=== PATIENT | female | born 1970 | race Caucasian/White ===

== ENCOUNTER 2021-02-12 08:47 | Outpatient (REF) | payer MEDICAID, SELFPAY ==
--- NOTE | ~2021-02-12 | MM_ITS ---
EXAMINATION: MM SCREENING DIGITAL BREAST TOMOSYNTHESIS, BILATERAL CLINICAL INFORMATION: Screening. Asymptomatic. Benign left stereotactic biopsy 01/04/2020 (Benign breast tissue with apocrine metaplasia and associated calcium oxalate crystals). The lifetime risk of breast cancer based on the Tyrer-Cuzick Model is 12%. COMPARISON: Mammography: 01/04/2020, 01/02/2020, 01/27/2017 TECHNIQUE: Digital breast tomosynthesis is performed in both the craniocaudal and mediolateral oblique views along with computer-aided detection (CAD). Synthesized 2D images are generated from the tomosynthesis. FINDINGS: There are scattered areas of fibroglandular density (ACR BI-RADS breast composition Category b). There are no significant masses, abnormal calcifications, or other abnormalities. There is biopsy clip marker anterior upper outer left breast. The axilla are unremarkable. No significant changes. MM/MM tomosynthesis screening BI IMPRESSION: No mammographic evidence of malignancy. ASSESSMENT: BI-RADS 2: Benign RECOMMENDATION: Routine annual mammography screening. This patient's information was entered into a reminder system with a target due date for their next mammogram.
== END 2021-02-12 08:48 | disposition home or self-care (01) ==
LOC: HO.MAMMO 08:47
PROVIDERS: PCP Family Medicine; Visit Provider Family Medicine
DX: Z12.31 Encounter for screening mammogram for malignant neoplasm of breast (principal)
CPT/HCPCS: 77063; 77067

== ENCOUNTER 2021-04-04 10:38 | Outpatient (REF) | payer MEDICAID, SELFPAY ==
--- NOTE | ~2021-04-04 | XR_ITS ---
EXAMINATION: XR LUMBOSACRAL SPINE WITH OBLIQUES CLINICAL INFORMATION: Lumbar region radiculopathy. COMPARISON: None TECHNIQUE: AP, both oblique, and lateral views of the lumbar spine. Lateral view of the lumbosacral junction. FINDINGS: Mild lumbar levoscoliosis is seen with apex at L3-4. Mild to moderate multilevel degenerative disc disease is seen from L2-3 to L5-S1, most pronounced at L3-4 with mild grade 1 anterolisthesis. Mild bilateral facet arthropathy seen at L4-5 and L5-S1. There is no acute fracture. Surgical clips overlie the right upper quadrant. The soft tissues are unremarkable. XR/XR lumbar spine 4V min IMPRESSION: 1. Mild lumbar levoscoliosis. 2. Mild to moderate multilevel degenerative changes and detailed above. No acute abnormality.
== END 2021-04-04 10:39 | disposition home or self-care (01) ==
LOC: HO.XRAY 10:38
PROVIDERS: Absent Provider Family Medicine; PCP Family Medicine; Visit Provider Emergency Medicine
DX: M54.16 Radiculopathy, lumbar region (principal)
CPT/HCPCS: 72110

== ENCOUNTER 2021-07-22 09:11 | Outpatient (REF) | payer MEDICAID, SELFPAY ==
[2021-07-25 17:43] LABS: HPV mRNA E6/E7 rflx Not Detected (Not Detected)
== END 2021-07-22 09:12 | disposition home or self-care (01) ==
LOC: HO.LAB 09:11
PROVIDERS: PCP Family Medicine; Visit Provider Advanced Practice Midwife
DX: Z01.419 Encounter for gynecological examination (general) (routine) without abnormal findings (principal); N63.20 Unspecified lump in the left breast, unspecified quadrant; N63.10 Unspecified lump in the right breast, unspecified quadrant; N85.2 Hypertrophy of uterus; Z79.899 Other long term (current) drug therapy
CPT/HCPCS: 87624; 88142

== ENCOUNTER 2021-08-19 09:02 | Outpatient (REF) | payer MEDICAID, SELFPAY ==
--- NOTE | ~2021-08-19 | US_ITS ---
EXAMINATION: MM DIAGNOSTIC DIGITAL BREAST TOMOSYNTHESIS, BILATERAL US DIAGNOSTIC ULTRASOUND BREAST, BILATERAL CLINICAL INFORMATION: Bilateral palpable findings noted at routine clinical exam lower breasts. Patient notes no palpable abnormality. No discharge. Age 51. Benign left stereotactic biopsy 01/04/2020 (Benign breast tissue with apocrine metaplasia and associated calcium oxalate crystals). The lifetime risk of breast cancer based on the Tyrer-Cuzick Model is 15%. COMPARISON: Mammography: 02/12/2021, 01/04/2020, 01/02/2020, 12/28/2019, 01/27/2017 TECHNIQUE: Digital breast tomosynthesis is performed in both the craniocaudal and mediolateral oblique views along with computer-aided detection (CAD). Synthesized 2D images are generated from the tomosynthesis. Additional right MLO view is provided. Ultrasound of each breast is targeted to the areas of clinical concern bilateral 4:00 through 8:00 position. Grayscale imaging and color Doppler are performed without and with harmonics. FINDINGS: There are scattered areas of fibroglandular density (ACR BI-RADS breast composition Category b). There is no developing density or interval mass or architectural abnormality. No skin thickening or coarsening of the Anival's ligaments. No interval abnormal calcifications. Biopsy clip marker present anterior 1:00 left breast. Ultrasound of each breast demonstrates no cystic or solid mass or architectural abnormality. There is no focal duct ectasia. No skin thickening or edema tracking in soft tissue planes. Results are discussed with the patient at time of visit, using an pipe cleaner. US/US breast LT limited IMPRESSION: No mammographic evidence of malignancy. Unremarkable bilateral targeted breast ultrasound. ASSESSMENT: BI-RADS 1: Negative RECOMMENDATION: 1. Patient should be managed based on the clinical impression. If clinically indicated, further evaluation may be considered with surgical consult. Decision to proceed with biopsy should be based on clinical grounds and degree of clinical concern. 2. Otherwise, routine annual screening mammography. This patient's information was entered into a reminder system with a target due date for their next mammogram.
--- NOTE | ~2021-08-19 | US_ITS ---
EXAMINATION: MM DIAGNOSTIC DIGITAL BREAST TOMOSYNTHESIS, BILATERAL US DIAGNOSTIC ULTRASOUND BREAST, BILATERAL CLINICAL INFORMATION: Bilateral palpable findings noted at routine clinical exam lower breasts. Patient notes no palpable abnormality. No discharge. Age 51. Benign left stereotactic biopsy 01/04/2020 (Benign breast tissue with apocrine metaplasia and associated calcium oxalate crystals). The lifetime risk of breast cancer based on the Tyrer-Cuzick Model is 15%. COMPARISON: Mammography: 02/12/2021, 01/04/2020, 01/02/2020, 12/28/2019, 01/27/2017 TECHNIQUE: Digital breast tomosynthesis is performed in both the craniocaudal and mediolateral oblique views along with computer-aided detection (CAD). Synthesized 2D images are generated from the tomosynthesis. Additional right MLO view is provided. Ultrasound of each breast is targeted to the areas of clinical concern bilateral 4:00 through 8:00 position. Grayscale imaging and color Doppler are performed without and with harmonics. FINDINGS: There are scattered areas of fibroglandular density (ACR BI-RADS breast composition Category b). There is no developing density or interval mass or architectural abnormality. No skin thickening or coarsening of the Anival's ligaments. No interval abnormal calcifications. Biopsy clip marker present anterior 1:00 left breast. Ultrasound of each breast demonstrates no cystic or solid mass or architectural abnormality. There is no focal duct ectasia. No skin thickening or edema tracking in soft tissue planes. Results are discussed with the patient at time of visit, using an obstetrics gyn physician. US/US breast RT limited IMPRESSION: No mammographic evidence of malignancy. Unremarkable bilateral targeted breast ultrasound. ASSESSMENT: BI-RADS 1: Negative RECOMMENDATION: 1. Patient should be managed based on the clinical impression. If clinically indicated, further evaluation may be considered with surgical consult. Decision to proceed with biopsy should be based on clinical grounds and degree of clinical concern. 2. Otherwise, routine annual screening mammography. This patient's information was entered into a reminder system with a target due date for their next mammogram.
== END 2021-08-19 09:03 | disposition home or self-care (01) ==
LOC: HO.MAMMO 09:02
PROVIDERS: Visit Provider Advanced Practice Midwife
DX: N63.15 Unspecified lump in the right breast, overlapping quadrants (principal); N63.25 Unspecified lump in the left breast, overlapping quadrants
CPT/HCPCS: 76642; 77062; 77066

== ENCOUNTER 2022-01-07 09:29 | Outpatient (REF) | payer MEDICAID, SELFPAY ==
--- NOTE | ~2022-01-07 | US_ITS ---
EXAMINATION: US PELVIS CLINICAL INFORMATION: This is a 51-year-old female with hypertrophy of the uterus. The patient is postmenopausal. COMPARISON: Comparison is made to a previous study dated 03/11/2012. TECHNIQUE: Ultrasound of the pelvis is performed using both transabdominal and transvaginal transducers along with Doppler. Transvaginal imaging is performed due to inadequate visualization transabdominally. FINDINGS: Uterus: The uterus is anteverted and anteflexed and measures 12.3 x 7.7 x 9.9 cm. The double wall endometrial thickness is is enlarged, inhomogeneous and measures 13 mm. There may be fluid present within the endometrial complex. The uterus is lobulated in contour and has multiple hypoechoic, circumscribed, noncalcified masses likely representing uterine fibroids: 1. There is a 6.7 x 4.8 x 6.7 cm lower right uterine mass which may represent a uterine fibroid. This may have been present previously when it measured 3.0 x 2.3 x 2.6 cm. 2. There is a 2.0 x 1.5 x 1.9 cm uterine mass which may represent a uterine fibroid. This was not apparent previously. 3. There is a 5.1 x 3.9 x 4.5 cm uterine mass which may represent a fibroid. This was not apparent previously. 4. There is a 4.0 x 2.9 x 5.0 cm uterine mass which may represent a uterine fibroid. This was not apparent previously. 5. There is 1.9 x 1.2 x 1.8 cm mass which may represent a uterine fibroid. This previously measured 0.7 x 0.5 x 0.9 cm. Adnexa: Both ovaries are visualized. There is normal color flow to the adnexa. There is no ovarian torsion. There is no pelvic ascites or fluid collection. Right ovary measures 3.9 x 1.9 x 2.6 cm. The volume is 10.1 mL. Previously, the right ovary measured 4.0 x 1.7 x 3.6 cm. Left ovary measures 1 x 2.6 x 3.3 cm. The volume is 17.1 mL. There is a complex 2.0 x 1.6 x 2.8 cm cystic mass. This contains septation and increased echoes. This is not a simple cyst. Previously, the ovary measures 3.5 x 2.8 x 3.1 cm. US/US pelvic and transvaginal IMPRESSION: 1. There are multiple masses within the uterus which may represent uterine fibroids. They have increased in size and number when compared to the previous study dated 03/11/2012. 2. There is a complex 2.8 cm cystic mass in the left ovary which was not apparent previously. A follow-up study to demonstrate resolution in 6 weeks is recommended.
== END 2022-01-07 09:30 | disposition home or self-care (01) ==
LOC: HO.US 09:29
PROVIDERS: PCP Family Medicine; Visit Provider Advanced Practice Midwife
DX: N85.2 Hypertrophy of uterus (principal)
CPT/HCPCS: 76830; 76856

== ENCOUNTER → 2022-01-13 10:55 | Outpatient (BNVA) | payer MEDICAID, SELFPAY | PROVIDERS: Visit Provider Advanced Practice Midwife | DX: Z13.89 Encounter for screening for other disorder (principal) ==

== ENCOUNTER → 2022-02-12 08:46 | Outpatient (BNVA) | payer MEDICAID, SELFPAY | PROVIDERS: PCP Family Medicine; Visit Provider Obstetrics & Gynecology | DX: D21.9 Benign neoplasm of connective and other soft tissue, unspecified (principal); N83.299 Other ovarian cyst, unspecified side; R32 Unspecified urinary incontinence | CPT/HCPCS: 99212 ==

== ENCOUNTER 2022-02-24 10:34 | Outpatient (REF) | payer MEDICAID, SELFPAY ==
--- NOTE | ~2022-02-24 | US_ITS ---
EXAMINATION: US PELVIS CLINICAL INFORMATION: Follow-up left ovarian cyst COMPARISON: Previous pelvic ultrasounds most recent December 2021 TECHNIQUE: Ultrasound of the pelvis is performed using both transabdominal and transvaginal transducers along with Doppler. Transvaginal imaging is performed due to inadequate visualization transabdominally. FINDINGS: The uterus is slightly enlarged and measures 10 x 4.6 x 8 cm in dimension. There are are multiple uterine lesions seen likely representing fibroids. Comparison with previous exam is difficult. There is at least 4 uterine fibroids seen. Largest fibroids measure 3 x 3.2 x 2.6 cm in the posterior lower uterine segment and 4.2 x 3.8 x 5 cm in the posterior fundus. The endometrium is not well visualized due to the fibroids. There are nabothian cysts in the cervix. The ovaries are normal-appearing. The right ovary measures 2.8 x 2.1 x 2.4 cm and the left ovary measures 2.8 x 2.1 x 2.1 cm. The previously identified 2 x 3 cm left ovarian cyst is no longer seen. There is no fluid in the pelvis. US/US pelvic and transvaginal IMPRESSION: Normal-appearing ovaries. Resolved left ovarian cyst from December 2021 exam. Multiple uterine fibroids. Endometrium not well seen.
[2022-02-26 11:06] LABS: CA 125 New Method 4 U/mL (<35); CA-125 5 U/mL (<35)
== END 2022-02-24 10:35 | disposition home or self-care (01) ==
LOC: HO.HMGCX 10:34
PROVIDERS: PCP Family Medicine; Visit Provider Obstetrics & Gynecology
DX: D21.9 Benign neoplasm of connective and other soft tissue, unspecified (principal); N83.299 Other ovarian cyst, unspecified side
CPT/HCPCS: 36415; 76830; 76856; 86304

== ENCOUNTER → 2022-03-24 11:19 | Outpatient (BNVA) | payer MEDICAID, SELFPAY | PROVIDERS: PCP Family Medicine; Visit Provider Obstetrics & Gynecology | DX: N83.299 Other ovarian cyst, unspecified side (principal); D21.9 Benign neoplasm of connective and other soft tissue, unspecified | CPT/HCPCS: 99212 ==

== ENCOUNTER 2022-08-19 09:23 | Emergency (ER) | payer MEDICAID, SELFPAY ==
--- NOTE | ~2022-08-19 | XR_ITS ---
EXAMINATION: XR FEMUR, RIGHT CLINICAL INFORMATION: Fall in the shower. Pain of the femur. COMPARISON: None TECHNIQUE: AP and lateral views of the right femur were obtained. FINDINGS: No fracture or cortical disruption. Appropriate alignment of the hip and knee. The soft tissues appear unremarkable. XR/XR femur RT 2V IMPRESSION: No fracture or malalignment.
--- NOTE | ~2022-08-19 | CT_ITS ---
EXAMINATION: NONCONTRAST HEAD CT NONCONTRAST CERVICAL SPINE CT INDICATION INFORMATION: Fall in the shower. Headache. Neck pain. COMPARISON: Cervical spine radiograph 06/28/2020 . TECHNIQUE: Separate noncontrast CT examinations of the head and cervical spine were performed. Coronal and sagittal images were created for each examination at the technologist workstation. This CT examination was performed using dose optimization techniques as appropriate, variously including the following: *Automated exposure control *Adjustment of mA and/or kV according to patient size (this includes techniques or standardized protocols for targeted exams where dose is matched to indication/reason for exam; i.e. extremities or head) *Use of iterative reconstruction technique DLP: 1121 mGy-cm FINDINGS: Head: There is no evidence of acute intracranial hemorrhage or territorial infarction. No abnormal mass effect or midline shift is seen. Zambrano to white matter differentiation is well preserved. No extra-axial fluid collections are identified. No hydrocephalus. No significant volume loss. There is no abnormal attenuation within the brain parenchyma. No acute osseous or soft tissue abnormality. The mastoid air cells and visualized portions of the paranasal sinuses are well aerated. Cervical spine: Straightening of the normal cervical lordosis. There is otherwise anatomic alignment of the vertebral bodies and posterior elements. The atlantoaxial and atlantooccipital articulations are intact. Vertebral body heights are maintained. There is multilevel intervertebral disc space narrowing with endplate osteophyte formation and facet arthropathy. No evidence of acute fracture. No prevertebral soft tissue swelling. Visualized portions of the lung apices are unremarkable. The thyroid gland is unremarkable. CT/CT cervical spine wo IV con IMPRESSION: 1. No acute intracranial finding. 2. No acute fracture or malalignment of the cervical spine. Mild degenerative changes.
--- NOTE | ~2022-08-19 | XR_ITS ---
EXAMINATION: XR SHOULDER, RIGHT XR ELBOW, RIGHT CLINICAL INFORMATION: Pain status post fall COMPARISON: None TECHNIQUE: 3 views of the right shoulder. 3 views of the right elbow. FINDINGS: Right shoulder: No fracture or dislocation. The glenohumeral joint is well aligned. The acromioclavicular joint is intact. The visualized lung is clear. The visualized ribs are intact. Right elbow: No acute fracture or dislocation. Osteophyte formation noted at the coronoid process. Enthesophyte of the medial humeral epicondyle. No elbow joint effusion. XR/XR shoulder RT min 2V IMPRESSION: No fracture or malalignment involving the right shoulder or elbow.
--- NOTE | ~2022-08-19 | XR_ITS ---
EXAMINATION: XR SHOULDER, RIGHT XR ELBOW, RIGHT CLINICAL INFORMATION: Pain status post fall COMPARISON: None TECHNIQUE: 3 views of the right shoulder. 3 views of the right elbow. FINDINGS: Right shoulder: No fracture or dislocation. The glenohumeral joint is well aligned. The acromioclavicular joint is intact. The visualized lung is clear. The visualized ribs are intact. Right elbow: No acute fracture or dislocation. Osteophyte formation noted at the coronoid process. Enthesophyte of the medial humeral epicondyle. No elbow joint effusion. XR/XR elbow RT 2V IMPRESSION: No fracture or malalignment involving the right shoulder or elbow.
--- NOTE | ~2022-08-19 | CT_ITS ---
EXAMINATION: CT CHEST WITH CONTRAST CT ABDOMEN AND PELVIS WITH CONTRAST CLINICAL INFORMATION: Chest wall pain, right greater than left after falling in the shower. Abdominal pain. COMPARISON: Chest radiograph 11/16/2018. TECHNIQUE: Multidetector volumetric imaging was performed through the chest, abdomen and pelvis following the administration of 85 mL of Omnipaque 350 intravenous contrast. Sagittal and coronal reformatted images were obtained on the technologist's workstation. Axial MIP volume rendering provided. This CT examination was performed using dose optimization techniques as appropriate, variously including the following: *Automated exposure control *Adjustment of mA and/or kV according to patient size (this includes techniques or standardized protocols for targeted exams where dose is matched to indication/reason for exam; i.e. extremities or head) *Use of iterative reconstruction technique DLP: 1643 mGy-cm. FINDINGS: CHEST: Lungs: The central airways are patent. Mild bronchial wall thickening. No consolidation. No pleural effusion or pneumothorax. There are no pulmonary parenchymal nodules. Mediastinum: The heart is of normal size. There is no pericardial effusion. Central vascular structures are unremarkable. No hilar or mediastinal lymphadenopathy. Coronary Artery Calcification: None visualized on this study. Chest Wall/Axilla: No lymphadenopathy. No chest wall mass. ABDOMEN/PELVIS: Liver, Gallbladder, Biliary Tree: The liver is enlarged measuring 22 cm in CC dimension. There is normal shape and attenuation. No focal hepatic lesion or biliary ductal dilatation is present. Cholecystectomy. Pancreas: Unremarkable. Spleen: Unremarkable. Adrenal Glands: Unremarkable. Kidneys and Ureters: The kidneys are normal in size, shape, and attenuation. No hydronephrosis, hydroureter or calculi seen. No perinephric stranding. Bladder: Unremarkable. Gastrointestinal Tract: The stomach and small bowel appear unremarkable. No dilated loops of bowel or evidence of obstruction. No diverticulosis. No colonic wall thickening or adjacent inflammatory changes. No free air or free fluid. The appendix is unremarkable. Abdominal Wall: No hernia is demonstrated. Lymphovascular Structures: Lymph nodes: Normal. Vascular: Normal caliber aorta. Retroaortic left renal vein. Pelvic Viscera: Anteverted uterus with heterogeneous lobulation, consistent with fibroids. No adnexal mass. OSSEOUS STRUCTURES: Vertebral body height and alignment maintained with degenerative change present. Endplate osteophytes with mild facet arthropathy and multilevel vacuum disc phenomenon. The sternum is intact. No clavicular or scapular fracture. No rib fracture identified. The pelvis is intact. Mild degenerative change at both hips. CT/CT abdomen pelvis w IV con IMPRESSION: 1. No acute traumatic finding of the chest, abdomen, or pelvis. No fractures are seen. 2. Degenerative changes of the spine and hips. 3. Hepatomegaly.
--- NOTE | ~2022-08-19 | XR_ITS ---
EXAMINATION: XR HAND, LEFT CLINICAL INFORMATION: Left hand pain COMPARISON: 02/11/2017 TECHNIQUE: PA, lateral, and oblique views of the left hand. FINDINGS: No fracture or dislocation. Alignment is maintained. Joint spaces are maintained. The soft tissues are unremarkable. XR/XR hand LT min 3V IMPRESSION: Normal left hand.
[2022-08-19 09:25] VITALS: BP 156/89; PULSE 71; RESP 18; TEMP 36.6; O2SAT 98; BMI 32.5
--- NOTE | 2022-08-19 11:44 | ED_ITS ---
HPI - General Adult General Chief complaint: General Medical Stated complaint: fall 08/17/22 Time Seen by Provider: 08/19/22 10:41 Source: patient Mode of arrival: ambulatory Limitations: no limitations History of Present Illness HPI narrative: 52-year-old female no significant medical history presents to the emergency department complaints of right-sided body pain is status post slip and fall in the bathtub on it 08/17/2022. Patient tells me when she fell she hit her head and she thinks she lost consciousness, she tells me her had to help her up. She reports that she is having pain to the right shoulder, right elbow, right femur and the left hand. She is also complaining of headache, neck pain s tatus post fall. She tells me she is on aspirin. Denies chest pain, shortness of breath, nausea, vomiting, abdominal pain, weakness, dizziness and vision changes GCS of 15 NIH stroke scale negative Related Data Home Medications Medication Instructions Recorded Confirmed acetaminophen 650 mg 650 mg PO Q8H PRN 07/22/21 01/13/22 tablet,extended release (Mapap Arthritis Pain) alcohol swabs (BD Alcohol Swabs) 0 pad topical TID 07/22/21 01/13/22 blood sugar diagnostic (FreeStyle #10 ea 07/22/21 01/13/22 Lite Strips) cholecalciferol (vitamin D3) 50 100 mcg PO DAILY 07/22/21 01/13/22 mcg (2,000 unit) tablet famotidine 20 mg tablet 20 mg PO BEDTIME 07/22/21 01/13/22 lancets 28 gauge (FreeStyle #100 ea 07/22/21 01/13/22 Lancets) metformin 500 mg tablet 1,000 mg PO BID 07/22/21 01/13/22 omeprazole 20 mg capsule,delayed 20 mg PO BID 07/22/21 01/13/22 release lisinopril 40 mg tablet 40 mg PO DAILY 02/12/22 Previous Rx's Medication Instructions Recorded cyclobenzaprine 10 mg tablet 10 mg PO BEDTIME PRN muscle spasm 08/19/22 #7 tabs lidocaine 5 % topical patch 1 patch topical DAILY PRN pain #15 08/19/22 ea Allergies Allergy/AdvReac Type Severity Reaction Status Date / Time No Known Allergies Allergy Verified 02/12/22 09:00 none Allergy Unknown Unknown Uncoded 01/13/22 10:48 Review of Systems Review of Systems: Constitutional : No Weight loss, No Fever, No Chills, No Fatigue, No Malaise ENT/Mouth : No sore throat, No Rhinorrhea Eyes: No Eye Pain, No Swelling, No Redness Cardiovascular : No Chest Pain, No SOB, No Dyspnea on Exertion, No Orthopnea, No Edema, No Palpitations Respiratory : No Cough, No Sputum, No Wheezing Gastrointestinal : No Nausea, No Vomiting, No Diarrhea, No Constipation, No abdominal Pain, No Hematochezia, No Melena Genitourinary : No Dysuria, No Urinary Frequency, No Hematuria, Musculoskeletal : No joint pain, No Myalgias, No Joint Swelling Skin : No Skin Lesions, No rash Neuro : No Weakness, No Numbness, No Dizziness, No Headache Psych : No Anxiety/Panic, No Depression All other systems reviewed and are negative Yes all other systems are reviewed and are negative [facility] Past Medical History Attestation statement: The following information was validated with the patient. Source: old records reviewed and nursing notes reviewed Medical History Diabetes HTN (hypertension) Social History Social History Alcohol intake: never Patient Tobacco Use Status: Never used Tobacco Advance Directives: No Advance Directives Information Provided: Yes Sexual orientation: Straight/Heterosexual Gender identity: Female Physical Exam ED Vital Signs: Vital Signs - 24 hr 08/19/22 09:25 Temperature 98 F Pulse Rate 71 Respiratory Rate 18 Blood Pressure 156/89 H Pulse Oximetry 98 BMI result Body Mass Index 32.5 Vital signs stable Appearance: Alert.? Oriented X3.? No acute distress.? Head: Normocephalic, atraumatic, no step-offs or deformities Eyes: Pupils equal, round and reactive to light.? ENT: Pharynx normal.? Neck: Normal inspection.? Neck supple.? CVS: Normal heart rate and rhythm.? Pulses normal.?+ anterior chest wall pain to palpation b/l Respiratory: No respiratory distress.? Breath sounds normal.? Abdomen: Soft and nontender.? Skin: Skin warm and dry.? Normal skin color.? Normal skin turgor.? Extremities: No lower extremity edema.? No calf ttp. 5/5 strength to bilateral upper and lower extremities. Full rom to b/l shoulders, knees, hips, ankles, elbows, wrists. Neuro: Oriented X 3.? No motor deficit.? No sensory deficit. CN 2-12 intact . Normal [id number], [id number], steady tandem gait with normal coordination. Course Reevaluation(s) Reevaluation #1: CBC appears to be within normal limits, slight normocytic anemia however patient not reporting any bleeding at this time. Normal platelets. Chemistry with no acute findings requiring intervention. Beta hCG negative. Head CT with no acute intracranial findings, no acute fracture dislocation of the cervical spine. No acute traumatic findings in the chest, abdomen or pelvis. No fractures are seen. Degenerative changes in the spine and hips. Hepatomegaly. X-ray of right shoulder within normal limits no acute finding. Normal left hand. Normal femur. Elbow on the right within normal limits no acute findings on x-ray. At this time likely contusions/muscle sprains and strains. At this time patient will be discharged home with muscle relaxers, and Lidoderm patches, advised to take ibuprofen every 6 hours, Tylenol every 4 as needed for pain or discomfort. Comfortable discharge home at time of discharge patient ambulating steady gait neuro exam nonfocal, patient reporting improvement in pain. Comfortable discharge Time: 14:16 Medical Decision Making [facility] Narrative Medical decision making narrative: 1216 52-year-old female presents status post slip and fall in the bathtub with right- sided body pain. Reports loss of consciousness. Not on blood thinners. This occurred on 08/17/2022. Physical examination with anterior chest wall pain on palpation. Neuro nonfocal, cerebellar intact. Regular rate and rhythm, lungs clear, abdomen soft nontender nondistended. No evidence signs of trauma upon examination. GCS 15 NIH stroke scale negative. Will rule out fractures, dislocations. Although unlikely. Neuro nonfocal unlikely intracranial hemorrhage, posterior stroke, subarachnoid. No signs of pneumothorax or flail chest. However based off patient's history and physical examination will obtain trauma scans. Medical Records Medical records reviewed: Yes I reviewed the patient's medical records. Lab Data Lab results reviewed: Yes I reviewed the patient's lab results. Result diagrams: 08/19/22 11:50 08/19/22 11:50 Labs: Lab Results 08/19/22 08/19/22 Range/Units 11:50 11:50 WBC 9.5 (4.8-10.8) X10*3/uL RBC 4.25 (4.20-5.50) X10*6/uL Hgb 11.2 L (12.0-16.0) g/dl Hct 35.7 L (37.0-47.0) % MCV 84.0 (80.0-98.0) fL MCH 26.4 L (27.0-33.0) pg MCHC 31.4 (31.0-35.0) g/dl RDW 13.9 (11.0-16.0) % Plt Count 293 (160-400) X10*3/uL MPV 11.6 (9.4-12.3) fL Immature Gran % (Auto) 0.1 (0.0-0.4) % Neut % (Auto) 54.6 (45-73) % Lymph % (Auto) 33.5 (20-40) % [place] % (Auto) 8.3 (2-11) % Eos % (Auto) 2.8 (0-4) % Baso % (Auto) 0.7 (0-2) % Lymph # (Auto) 3.2 (1.2-4.9) X10*3/uL [place] # (Auto) 0.8 (0.1-1.2) X10*3/uL Eos # (Auto) 0.3 (0.0-0.4) X10*3/uL Baso # (Auto) 0.1 (0.0-0.2) X10*3/uL Abs Immat Gran (auto) 0.01 (0.00-0.03) X10*3/uL Absolute Neuts (auto) 5.2 (2.0-8.3) x10*3/uL Absolute Nucleated RBC 0.000 (0.0-0.012) X10*3/uL Nucleated RBC % (auto) 0.0 (0.0-0.2) /100WBC Sodium 141 (135-145) mmol/L Potassium 4.6 (3.3-5.1) mmol/L Chloride 103 (96-108) mmol/L Carbon Dioxide 26 (22-29) mmol/L Anion Gap 17 (12-20) BUN 10 (9-16) mg/dL Creatinine 0.68 (0.5-1.4) mg/dL Estim Creat Clear Calc 93.1 Estimated GFR > 60 Random Glucose 127 H (60-115) mg/dL Calcium 9.3 (8.4-10.2) mg/dL Total Bilirubin 0.4 (0.0-1.0) mg/dL AST 17 (5-31) U/L ALT 23 (0-31) U/L Alkaline Phosphatase 64 (39-117) U/L Total Protein 7.9 (6.5-8.0) g/dL Albumin 4.4 (3.5-5.0) g/dL Beta HCG, Quant < 2 mIU/mL Critical Care Time Critical Care Time Critical Care Time: No Discharge Plan Discharge Clinical Impression: Fall, Anterior chest wall pain, Headache, Neck pain, Right shoulder pain, Leg pain, Contusion Patient Disposition: Home, Self-Care Instructions: Arthralgia (ED), Fall Prevention (ED), Shoulder Pain (ED), Chest Wall Pain (ED), Leg Pain (ED), General Headache (ED), Neck Pain (ED) Additional Instructions: Take your medications as prescribed. If you were prescribed antibiotics today, it is important that you take your medication to their entirety, do not skip any doses, do not finish them early. Follow-up with your primary care provider this week. Return to the emergency department with new or worsening symptoms. Such as fevers, chills, chest pain, shortness of breath, nausea, vomiting, dizziness, headache, vision changes, lethargy In case of emergency call [address] CT/CT head/brain wo IV con IMPRESSION: 1.? No acute intracranial finding. 2.? No acute fracture or malalignment of the cervical spine. Mild degenerative changes. ??CT/CT chest w IV con IMPRESSION: 1.? No acute traumatic finding of the chest, abdomen, or pelvis. No fractures are seen. 2.? Degenerative changes of the spine and hips. 3.? Hepatomegaly. ? Prescriptions: New cyclobenzaprine 10 mg tablet 10 mg PO BEDTIME PRN (Reason: muscle spasm) Qty: 7 0RF lidocaine 5 % adhesive patch,medicated 1 patch topical DAILY PRN (Reason: pain) Qty: 15 0RF Rx Instructions: leave on most painful area for up to 12 hrs No Action metformin 500 mg tablet 1,000 mg PO BID alcohol swabs [BD Alcohol Swabs] Pads, Medicated 0 pad topical TID acetaminophen [Mapap Arthritis Pain] 650 mg tablet extended release 650 mg PO Q8H PRN omeprazole 20 mg capsule,delayed release(DR/EC) 20 mg PO BID famotidine 20 mg tablet 20 mg PO BEDTIME cholecalciferol (vitamin D3) 50 mcg (2,000 unit) tablet 100 mcg PO DAILY (DME) lancets [FreeStyle Lancets] 28 gauge misc See Rx Instructions topical DIRECTED Qty: 100 Rx Instructions: As directed (DME) FreeStyle Lite Strips Strip See Rx Instructions Not Applicable TID Qty: 10 Rx Instructions: As directed lisinopril 40 mg tablet 40 mg PO DAILY Referrals: [facility] [place] [facility] [Provider Group] - 2 weeks Jazlyn Addison DO [Primary Care Provider] - 2 days Stand Alone Forms: Work/School Release
[2022-08-19 11:59] LABS: MANUAL DIFF FLAG NO
[2022-08-19 12:05] LABS: Basophils Absolute Auto 0.1 X10*3/uL (0.0-0.2); Basophils Percent Auto 0.7 % (0-2); Eosinophils Absolute Auto 0.3 X10*3/uL (0.0-0.4); Eosinophils Percent Auto 2.8 % (0-4); Hematocrit 35.7 % (37.0-47.0); Hemoglobin 11.2 g/dl (12.0-16.0); Imm Gran Abs Auto 0.01 X10*3/uL (0.00-0.03); Imm Gran Pct Auto 0.1 % (0.0-0.4); Lymphocytes Absolute Auto 3.2 X10*3/uL (1.2-4.9); Lymphocytes Percent Auto 33.5 % (20-40); Mean Corpuscular HGB Conc 31.4 g/dl (31.0-35.0); Mean Corpuscular Hemoglobin 26.4 pg (27.0-33.0); Mean Platelet Volume 11.6 fL (9.4-12.3); Monocytes Absolute Auto 0.8 X10*3/uL (0.1-1.2); Monocytes Percent Auto 8.3 % (2-11); Neutrophils Absolute Auto 5.2 x10*3/uL (2.0-8.3); Neutrophils Percent Auto 54.6 % (45-73); Platelet Count 293 X10*3/uL (160-400); Red Blood Count 4.25 X10*6/uL (4.20-5.50); Red Cell Distribution Width 13.9 % (11.0-16.0); White Blood Count 9.5 X10*3/uL (4.8-10.8)
--- OUTSIDE RECORDS SUMMARY | 2022-08-19 12:06 | XMS_ITS | Continuity of Care Document ---
:1970 Author Organization [facility] Address [address] [place] [id number]- Care Team Providers Name Role Phone Jazlyn Addison DO Primary Care Physician Encounter [facility] [place] Date(s): 06/24/21 - 09/15/21 [facility] [address] [place] [id number]- Attending Physician: Tracy Cardona MD Admitting Physician: Tracy Cardona MD Referring Physician: Jazlyn Addison DO Allergies, Adverse Reactions, Alerts Substance Reaction Severity Status NKA Active Medications ibuprofen 600 mg oral tablet 1 tablet = 600 mg, By Mouth, 4 times a day, PRN Pain, # 40 tablet, 0 Refills, Maintenance, 02/08/15 11:10:03, Tablet Start Date: 02/08/15 Status: Orderedibuprofen 600 mg oral tablet 600 mg, 1, tablet, By Mouth, Every 6 to 8 hours, with food or milk, # 24 tablet, Refills 0, Tot. Refills 0, Maintenance, 08/27/16 11:04:47, Print Requisition Start Date: 08/27/16 Status: Orderedlisinopril 20 mg oral tablet 1 tablet = 20 mg, By Mouth, Daily, 0 Refills, Maintenance, 02/12/15 13:48:28 Start Date: 02/12/15 Status: OrderedmetFORMIN 500 mg oral tablet 1 tablet = 500 mg, By Mouth, 2 times a day, 0 Refills, Maintenance, 08/27/16 10:06:00 Start Date: 08/27/16 Status: Ordered Problem List Condition Effective Dates Status Health Status Informant Gastroesophageal reflux(Confirmed) Active High blood pressure(Confirmed) Active Social History Social History Type Response Smoking Status Never smoker entered on: 02/12/15 Sex
--- OUTSIDE RECORDS SUMMARY | 2022-08-19 12:06 | XMS_ITS | Continuity of Care Document ---
:1970 Author Organization [facility] Address [address] [place] [id number]- Care Team Providers Name Role Phone Jazlyn Addison DO Primary Care Physician Encounter [facility] [place] Date(s): 08/16/21 - 09/15/21 [facility] [address] [place] [id number]- Attending Physician: Gustabo Hylton Admitting Physician: Gustabo Hylton Referring Physician: Gustabo Hylton Allergies, Adverse Reactions, Alerts Substance Reaction Severity [...]
--- OUTSIDE RECORDS SUMMARY | 2022-08-19 12:06 | XMS_ITS | Continuity of Care Document ---
:1970 Author Organization [facility] Address [address] [place] [address]- Care Team Providers Name Role Phone Jazlyn Addison DO Primary Care Physician Encounter [facility] [place] Date(s): 09/24/21 - 11/01/[address] [address] Attending Physician: Jazlyn Addison DO Admitting Physician: Jazlyn Addison DO Referring Physician: Jazlyn Addison DO Allergies, Adverse [...]
--- OUTSIDE RECORDS SUMMARY | 2022-08-19 12:06 | XMS_ITS | Continuity of Care Document ---
:1970 Author Organization [facility] Address [address] [place] [address]- Care Team Providers Name Role Phone Jazlyn Addison DO Primary Care Physician Encounter [facility] [place] Date(s): 01/11/21 - 02/16/[address] [address] Attending Physician: Jazlyn Addison DO Admitting Physician: [...]
--- OUTSIDE RECORDS SUMMARY | 2022-08-19 12:06 | XMS_ITS | Continuity of Care Document ---
:1970 Author Organization [facility] Address [address] [place] [address]- Care Team Providers Name Role Phone Jazlyn Addison DO Primary Care Physician Encounter [facility] [place] Date(s): 11/23/20 - 12/23/[address] [address] Attending Physician: Gustabo Hylton Admitting Physician: Gustabo [...]
--- OUTSIDE RECORDS SUMMARY | 2022-08-19 12:06 | XMS_ITS | Continuity of Care Document ---
:1970 Author Organization [facility] Address [address] [place] [phone]- Care Team Providers Name Role Phone Jazlyn Addison DO Primary Care Physician [place] [facility] [place](s): 06/24/21 - 07/24/21 [facility] [address] [place] [id number]- [place] Allergies, Adverse Reactions, Alerts Substance Reaction Severity [...]
--- OUTSIDE RECORDS SUMMARY | 2022-08-19 12:06 | XMS_ITS | Continuity of Care Document ---
:1970 Author Organization [facility] Address [address] [place] [id number]- Care Team Providers Name Role Phone Jazlyn Addison DO [id number] Date(s[facility] 11/13/20 - 01/13/[address] [address] Discharge Disposition: A-D/C Home Attending Physician: Jazlyn Addison DO Admitting Physician: [...]
--- OUTSIDE RECORDS SUMMARY | 2022-08-19 12:06 | XMS_ITS | Continuity of Care Document ---
:1970 Author Organization [facility] Address [address] [place] [address]- Care Team Providers Name Role Phone Jazlyn Addison DO Primary Care Phys[id number] Date[facility] 09/21/21 - 09/21/[address] [address]- Encounter Diagnosis Chest pain (Final) - 09/21/21 Discharge Disposition: A-D/C Home Attending Physician: Lorena Chavarria MD Admitting Physician: Lorena Chavarria MD Referring Physician: Not on Staff, Referring MD Allergies, Adverse Reactions, Alerts Substance Reaction Severity [...] Gastroesophageal reflux(Confirmed) Active High blood pressure(Confirmed) Active Results Radiology Reports Exam Date Time Procedure Performing Provider Status 09/21/21 10:50 AM Chest Portable Pedrito Brynn; Auth (Verified ) Notes:(Chest Portable) Reason For Exam: Shortness of BreathRESULT: Chest Portable Chest Portable HX OF PRESENT ILLNESS: pt presents to ed via ems (left without giving report), coming from home where she has had a severe migraine midsternal cp anxiety since this am, also c o nausea but no vomiting and states her BP was high, has a hx of type 2 DM and HTN, pt a ox4; Reason: Shortness of Breath; Clinical Question(s): CHF / CHF COMPARISON: 12/14/2013 FINDINGS: LINES AND TUBES: None. LUNGS AND PLEURA: Low lung volumes with mild basilar atelectasis. Lungs are otherwise clear with no definite consolidation. No pleural effusion. No pneumothorax. HEART, MEDIASTINUM AND LEW: Heart is normal in size. Normal mediastinal and hilar contour. BONES AND SOFT TISSUES: No acute abnormality. There are surgical clips in the right upper quadrant. IMPRESSION: No evidence of acute abnormality. WSN: [id number] Ordering Physician: Sharee Zimmerman Dictated By: Mandeep Ray MD Dictated Date/Time: 09/21/21 11:09 a Reviewed By: Mandeep Ray MD Signed By: Mandeep Ray MD Signed Date/Time: 09/21/21 11:09 am Transcribed By: LAVON Transcribed Date/Time: 09/21/21 11:08 am Vital Signs Most recent to oldest 1 2 3 [Reference Range]: Oxygen Saturation [94-100 98 % 96 % 98 % %] (09/21/21 4:15 PM) (09/21/21 11:03 AM) (09/21/21 10:41 AM) Pulse Rate [55-90 bpm] 88 bpm 89 bpm 82 bpm (09/21/21 4:15 PM) (09/21/21 11:03 AM) (09/21/21 10:41 AM) Blood Pressure 142/82 mm Hg 133/82 mm Hg 181/104 mm Hg [90-138/55-84 mm Hg] *H* (09/21/21 11:03 AM) *H* (09/21/21 4:15 PM) (09/21/21 10: 41 AM) Respiratory Rate [16-30 17 br/min 19 br/min 17 br/mi n br/min] (09/21/21 4:15 PM) (09/21/21 11:03 AM) (09/21/21 10:41 AM) Temperature [96.8-100.4 97.7 DegF DegF] (09/21/21 10:41 AM) Mode of Delivery (Oxygen) Room air Room air Room a ir (09/21/21 4:15 PM) (09/21/21 11:03 AM) (09/21/21 10:41 AM) Blood pressure sites Arm, left Arm, left Arm, left (09/21/21 4:15 PM) (09/21/21 11:03 AM) (09/21/21 10:41 AM) Temperature Route Oral (09/21/21 10:41 AM) Social History Social History Type Response Smoking Status Never smoker entered on: 02/12/15 Sex
--- OUTSIDE RECORDS SUMMARY | 2022-08-19 12:06 | XMS_ITS | Continuity of Care Document ---
:1970 Author Organization [facility] Address [address] [place] [address]- Care Team Providers Name Role Phone Jazlyn Addison DO Primary Care Physician Encounter [facility] [place] Date(s): 08/23/20 - 10/25/[address] [address] Discharge Disposition: A-D/C Home Attending Physician: Jazlyn [...]
--- OUTSIDE RECORDS SUMMARY | 2022-08-19 12:06 | XMS_ITS | Continuity of Care Document ---
:1970 Author Organization [facility] Address [address] [place] [id number]- Care Team Providers Name Role Phone Jazlyn Addison DO Primary Care Physician Encounter [facility] [place] [facility] [place] [id number] Date(s): 11/17/20 - 12/23/[address] [address] Attending Physician: Jazlyn Addison DO Admitting Physician: Jazlyn Addison DO Allergies, Adverse Reactions, [...]
[2022-08-19 12:31] LABS: Alanine Aminotransferase 23 U/L (0-31); Albumin Level 4.4 g/dL (3.5-5.0); Alkaline Phosphatase 64 U/L (39-117); Anion Gap 17 (12-20); Aspartate Amino Transferase 17 U/L (5-31); Bilirubin Total 0.4 mg/dL (0.0-1.0); Blood Urea Nitrogen 10 mg/dL (9-16); Calcium 9.3 mg/dL (8.4-10.2); Carbon Dioxide 26 mmol/L (22-29); Chloride 103 mmol/L (96-108); Creatinine Clr Calc Pharmacy 93.1; Estimated Glomerular Filt Rate > 60; Glucose Random 127 mg/dL (60-115); Potassium 4.6 mmol/L (3.3-5.1); Sodium 141 mmol/L (135-145); Total Protein 7.9 g/dL (6.5-8.0)
[2022-08-19 12:38] LABS: HCG Quantitative < 2 mIU/mL
[2022-08-19] MEDS: Morphine Sulfate Immed Release 15 MG TABLET PO (13:27)
[2022-08-19] MEDS: iohexoL 350 MG/ML 100 ML INFUS..BTL 85 ML IV (13:48)
== END 2022-08-19 15:24 | disposition home or self-care (01) ==
PROVIDERS: Physician Assistant; Emergency Provider Emergency Medicine Emergency Medical Services; PCP Family Medicine
DX: S20.213A Contusion of bilateral front wall of thorax, initial encounter (principal); S89.91XA Unspecified injury of right lower leg, initial encounter; R51.9 Headache, unspecified; M54.2 Cervicalgia; M25.511 Pain in right shoulder; M79.10 Myalgia, unspecified site; M79.642 Pain in left hand; R10.9 Unspecified abdominal pain; W18.2XXA Fall in (into) shower or empty bathtub, initial encounter; Y93.E1 Activity, personal bathing and showering; Y92.002 Bathroom of unspecified non-institutional (private) residence as the place of occurrence of the external cause; Y99.9 Unspecified external cause status; Z79.899 Other long term (current) drug therapy
CPT/HCPCS: 36415; 70450; 71260; 72125; 73030; 73070; 73130; 73552; 74177; 80053; 84702; 85025; 99284; Q9967

== ENCOUNTER 2022-08-22 13:11 | Emergency (ER) | payer MEDICAID, SELFPAY ==
--- NOTE | ~2022-08-22 | CT_ITS ---
EXAMINATION: CT ANGIOGRAM OF THE HEAD CT ANGIOGRAM OF THE NECK CLINICAL INFORMATION: Right-sided neck pain and facial numbness post trauma. COMPARISON: CT scan of the head and cervical spine 08/19/2022. TECHNIQUE: A noncontrast axial CT scan of the head was obtained. Test bolus series followed by intravenous administration 70 mL of Omnipaque 350. Helical imaging was performed in the axial plane from the mediastinum to the skull vertex. Delayed post contrast CT scan of the head was obtained. The degree of stenosis is based off NASCET criteria. The data was processed at the x ray technologist workstation for generation of MIP images. Three-dimensional volume rendered reformatted images were also generated at an offline 3-D workstation. This CT examination was performed using dose optimization techniques as appropriate, variously including the following: *Automated exposure control *Adjustment of mA and/or kV according to patient size (this includes techniques or standardized protocols for targeted exams where dose is matched to indication/reason for exam; i.e. extremities or head) *Use of iterative reconstruction technique DLP: 2206 mGy-cm. FINDINGS: CT Head: There is no evidence of acute intracranial hemorrhage or territorial infarction. No abnormal mass-effect or midline shift is seen. Zambrano to white matter differentiation is well preserved. No extra-axial fluid collections are identified. There is no abnormal enhancement. The ventricles are normal in size. There is no abnormal attenuation within the brain parenchyma. There are no acute osseous or soft tissue abnormalities. There is hyperostosis frontalis interna. The mastoid air cells are well-aerated. There is a retention cyst in the right maxillary sinus. CTA Neck: There is mild degradation of assessment of the vasculature in the lower neck due to beam hardening artifact from contrast vascular structures particularly on the left. There is a classic configuration of the arch of the aorta. The great vessels of the neck are widely patent. The subclavian arteries appear normal bilaterally. The common carotid arteries have normal caliber. The carotid bifurcations bilaterally appear normal. The internal carotid arteries in the neck bilaterally have uniform and normal caliber. The origins of both vertebral arteries are well seen and appear normal. Both vertebral arteries are widely patent and demonstrate good opacification throughout their cervical course. The left vertebral artery is slightly dominant. Nonvascular: The visualized upper lung abbott appear clear. The thyroid gland is normal in size. There is no cervical lymphadenopathy. There is moderate narrowing of intervertebral disc height at multiple levels with marginal osteophytes anteriorly, but no acute fractures or subluxations are demonstrated. There are uncovertebral osteophytes at multiple levels, and there is foraminal narrowing which is most severe at C5-C6 and C6-C7. CTA Head: There are mild atheromatous calcifications of the cavernous internal carotid arteries bilaterally, but the vessels are patent.. The middle and anterior cerebral arteries bilaterally demonstrate normal caliber with no evidence of focal stenosis, aneurysm or vascular malformation. There is normal arborization of the middle cerebral artery branches. The anterior communicating artery is normal. In the posterior circulation, the vertebral arteries are codominant, and have uniform caliber. The basilar artery appears normal. The posterior cerebral arteries have normal caliber. The venous sinuses opacify normally. CT/CT angio head neck IMPRESSION: CT head and neck: 1. There are no acute bleeds or territorial infarcts. 2. There are no masses or areas of abnormal enhancement. 3. There is multilevel spondylosis in the cervical spine. CTA head and neck: 1. There are no flow-limiting stenoses, aneurysms or dissections in the upper chest and cervical vascular structures. 2. Intracranially there are no focal stenoses, aneurysms or vascular malformations.
[2022-08-22 13:14] VITALS: BP 184/61; PULSE 86; RESP 18; TEMP 37.2; O2SAT 100; BMI 32.7
--- NOTE | 2022-08-22 13:19 | ECG_ITS ---
Test Reason : facial numbness Blood Pressure : / mmHG Vent. Rate : 078 BPM Atrial Rate : 078 BPM P-R Int : 126 ms QRS Dur : 090 ms QT Int : 376 ms P-R-T Axes : 004 045 -11 degrees QTc Int : 428 ms Normal sinus rhythm T-wave inversion in Inferior leads Abnormal ECG When compared with ECG of 19-JUN-2014 11:35, No significant change was found Referred By: Generic ED Physician Electronically Signed By:MIKIE NEVILLE MD
--- NOTE | 2022-08-22 13:55 | ED_ITS ---
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 Mode of arrival: ambulatory Limitations: no limitations History of Present Illness HPI Narrative: 52 yo female with hx of GERD, HTN, DM, just seen on 08/19 post mechanical fall at that time had negative head CT, chest, CT, cervical spine CT, abdomen pelvis CT, R shoulder xray, L hand xray, R femur xray, R elbow xray here with c/o R sided neck pain since fall woke up around 11am now noted small patch of R face is more numb and painful it hurts in her TMJ joint and her headache is still painful Onset (ago): day(s) (fell days ago but symptoms at 11am today ) Location: right face History of same: No Severity: mild Quality: tingling Relieving factors: none Exacerbating factors: other (palpation to the area) Context: gradual onset On Anticoagulants: No Associated symptoms: headaches and other (face tingling) Treatments Prior to Arrival: none Related Data Home Medications Medication Instructions Recorded Confirmed acetaminophen 650 mg 650 mg PO Q8H PRN 07/22/21 01/13/22 tablet,extended release (Mapap Arthritis Pain) alcohol swabs (BD Alcohol Swabs) 0 pad topical TID 07/22/21 01/13/22 blood sugar diagnostic (FreeStyle #10 ea 07/22/21 01/13/22 Lite Strips) cholecalciferol (vitamin D3) 50 100 mcg PO DAILY 07/22/21 01/13/22 mcg (2,000 unit) tablet famotidine 20 mg tablet 20 mg PO BEDTIME 07/22/21 01/13/22 lancets 28 gauge (FreeStyle #100 ea 07/22/21 01/13/22 Lancets) metformin 500 mg tablet 1,000 mg PO BID 07/22/21 01/13/22 omeprazole 20 mg capsule,delayed 20 mg PO BID 07/22/21 01/13/22 release lisinopril 40 mg tablet 40 mg PO DAILY 02/12/22 Previous Rx's Medication Instructions Recorded cyclobenzaprine 10 mg tablet 10 mg PO BEDTIME PRN muscle spasm 08/19/22 #7 tabs lidocaine 5 % topical patch 1 patch topical DAILY PRN pain #15 08/19/22 ea Allergies Allergy/AdvReac Type Severity Reaction Status Date / Time No Known Allergies Allergy Verified 02/12/22 09:00 none Allergy Unknown Unknown Uncoded 01/13/22 10:48 Review of Systems Review of Systems: Constitutional : No Fever, No Chills, No Fatigue ENT/Mouth : No sore throat, No Rhinorrhea Eyes: No Eye Pain, No Swelling, No Redness Cardiovascular : No Chest Pain, No SOB, No Dyspnea on Exertion Respiratory : No Cough, No Sputum Gastrointestinal : No Nausea, No Vomiting, No Diarrhea, No abdominal Pain Genitourinary : No Dysuria, No Urinary Frequency, No Hematuria, Musculoskeletal : No joint pain, No Myalgias, No Joint Swelling, pos neck pain Skin : No Skin Lesions, No rash Neuro : No Weakness, No Numbness, No Dizziness, positive Headache, pos parasthesias Psych : No Anxiety/Panic, No Depression Heme/Lymph: No Bruising, No Bleeding,No Lymphadenopathy Endocrine : No Polyuria, No Polydipsia All other systems reviewed and are negative [facility] Past Medical History Attestation statement: The following information was validated with the patient. Medical History Diabetes HTN (hypertension) Social History Social History Alcohol intake: never Patient Tobacco Use Status: Never used Tobacco Advance Directives: No Advance Directives Information Provided: Yes Sexual orientation: Straight/Heterosexual Gender identity: Female Physical Exam Vital Signs: Vital Signs: Last Vital Signs Temp 98.9 F 08/22/22 13:14 Pulse 86 08/22/22 13:14 Resp 18 08/22/22 13:14 BP 184/61 H 08/22/22 13:14 Pulse Ox 100 08/22/22 13:14 O2 Del Method 08/22/22 13:14 BMI result Body Mass Index 32.7 Appearance: Alert. Oriented X3. No acute distress. Eyes: Pupils equal, round and reactive to light. ENT: Pharynx normal. ttp along R TMJ area reproduces pain and tingling Neck: ttp along R side of neck , no bruit heard CVS: Normal heart rate and rhythm. Pulses normal. Respiratory: No respiratory distress. Breath sounds normal. Abdomen: Soft and nontender. Skin: Skin warm and dry. Normal skin color. Normal skin turgor. Extremities: No lower extremity edema. No calf ttp Neuro: Oriented X 3. No motor deficit. No sensory deficit. reports one patch of tingling to R upper cheek area in 3cm spot Course Course Course Narrative: signed out to Vinny PACHECO pending workup MDM - Neuro Symptoms/Deficit MDM Narrative Medical decision making narrative: 52 yo female with hx of GERD, HTN, DM, just seen on 08/19 post mechanical fall now with persistent headaches and neck pain pain in TMJ - has small patch 3cm R cheek area that is tingling - at this time symptoms are so mild and not debilitating not a candidate for tPa. Could be post trauma and peripheral vs dissection - labs, EKG, CTA for dissection ordered. NIH Stroke Scale Internal: Initial- Upon Arrival Level of Consciousness: Alert Level of Consciousness Questions: Answers both questions correctly Level of Consciousness Commands: Performs both tasks correctly Best Gaze: Normal Visual: No visual loss Facial Palsy: Normal Motor Arm (Right): No drift Motor Arm (Left): No drift Motor Leg (Right): No drift Motor Leg (Left): No drift Limb Ataxia: Absent Sensory: Mild to moderate sensory loss Best Language: No aphasia Dysarthia: Normal Extinction and Inattention: No abnormality Score: 1 Discharge Plan Discharge Clinical Impression: Neck pain, Facial paresthesia Patient Disposition: Still a Patient Prescriptions: No Action cyclobenzaprine 10 mg tablet 10 mg PO BEDTIME PRN (Reason: muscle spasm) Qty: 7 0RF lidocaine 5 % adhesive patch,medicated 1 patch topical DAILY PRN (Reason: pain) Qty: 15 0RF Rx Instructions: leave on most painful area for up to 12 hrs metformin 500 mg tablet 1,000 mg PO BID alcohol swabs [BD Alcohol Swabs] Pads, Medicated 0 pad topical TID acetaminophen [Mapap Arthritis Pain] 650 mg tablet extended release 650 mg PO Q8H PRN omeprazole 20 mg capsule,delayed release(DR/EC) 20 mg PO BID famotidine 20 mg tablet 20 mg PO BEDTIME cholecalciferol (vitamin D3) 50 mcg (2,000 unit) tablet 100 mcg PO DAILY (DME) lancets [FreeStyle Lancets] 28 gauge misc See Rx Instructions topical DIRECTED Qty: 100 Rx Instructions: As directed (DME) FreeStyle Lite Strips Strip See Rx Instructions Not Applicable TID Qty: 10 Rx Instructions: As directed lisinopril 40 mg tablet 40 mg PO DAILY
[2022-08-22] MEDS: LORazepam 1 MG TABLET PO (14:27)
[2022-08-22 16:11] LABS: MANUAL DIFF FLAG NO
[2022-08-22 16:13] VITALS: BP 115/57; PULSE 73; RESP 16; TEMP 36.8; O2SAT 98
[2022-08-22 16:18] LABS: Basophils Absolute Auto 0.1 X10*3/uL (0.0-0.2); Basophils Percent Auto 0.9 % (0-2); Eosinophils Absolute Auto 0.2 X10*3/uL (0.0-0.4); Eosinophils Percent Auto 2.1 % (0-4); Hematocrit 37.1 % (37.0-47.0); Hemoglobin 11.8 g/dl (12.0-16.0); INTERNATIONAL NORM RATIO 1.1 (0.9-1.1); Imm Gran Abs Auto 0.02 X10*3/uL (0.00-0.03); Imm Gran Pct Auto 0.2 % (0.0-0.4); Lymphocytes Absolute Auto 2.2 X10*3/uL (1.2-4.9); Lymphocytes Percent Auto 27.4 % (20-40); Mean Corpuscular HGB Conc 31.8 g/dl (31.0-35.0); Mean Corpuscular Hemoglobin 26.7 pg (27.0-33.0); Mean Corpuscular Volume 83.9 fL (80.0-98.0); Mean Platelet Volume 11.3 fL (9.4-12.3); Monocytes Absolute Auto 0.6 X10*3/uL (0.1-1.2); Monocytes Percent Auto 7.2 % (2-11); Neutrophils Percent Auto 62.2 % (45-73); Platelet Count 301 X10*3/uL (160-400); Prothrombin Time 12.5 SEC (10.0-13.1); Red Blood Count 4.42 X10*6/uL (4.20-5.50); Red Cell Distribution Width 13.6 % (11.0-16.0); White Blood Count 8.1 X10*3/uL (4.8-10.8)
[2022-08-22 16:29] LABS: Alanine Aminotransferase 31 U/L (0-31); Albumin Level 4.4 g/dL (3.5-5.0); Alkaline Phosphatase 64 U/L (39-117); Anion Gap 14 (12-20); Aspartate Amino Transferase 24 U/L (5-31); Bilirubin Direct < 0.2 mg/dL (0.0-0.5); Bilirubin Total 0.3 mg/dL (0.0-1.0); Blood Urea Nitrogen 15 mg/dL (9-16); Calcium 9.7 mg/dL (8.4-10.2); Carbon Dioxide 26 mmol/L (22-29); Chloride 104 mmol/L (96-108); Creatinine Clr Calc Pharmacy 88.1; Estimated Glomerular Filt Rate > 60; Glucose Random 126 mg/dL (60-115); Lipase 32 U/L (8-78); Potassium 4.2 mmol/L (3.3-5.1); Sodium 140 mmol/L (135-145); Total Protein 7.8 g/dL (6.5-8.0)
[2022-08-22 16:34] LABS: Troponin-I High Sensitivity < 3.5 ng/L (<3.5-17.0)
[2022-08-22 16:40] LABS: COVID-19 Test Negative (Negative); IDNOW Serial# 16C4AD1C
[2022-08-22] MEDS: iohexoL 350 MG/ML 100 ML INFUS..BTL IV (17:46)
[2022-08-22 18:19] VITALS: BP 122/60; PULSE 77; RESP 16; TEMP 36.7; O2SAT 98
== END 2022-08-22 18:37 | disposition home or self-care (01) ==
PROVIDERS: Emergency Provider Emergency Medicine; PCP Family Medicine
DX: M54.2 Cervicalgia (principal); R20.2 Paresthesia of skin; Z20.822 Contact with and (suspected) exposure to COVID-19; E11.9 Type 2 diabetes mellitus without complications; I10 Essential (primary) hypertension; Z79.84 Long term (current) use of oral hypoglycemic drugs; Z79.899 Other long term (current) drug therapy
CPT/HCPCS: 36415; 70496; 70498; 80053; 82248; 83690; 84484; 85025; 85610; 87635; 93005; 99284; 99285; Q9967

== ENCOUNTER → 2022-11-25 10:11 | Outpatient (BNVA) | payer MEDICAID, SELFPAY | PROVIDERS: PCP Family Medicine; Visit Provider Internal Medicine | DX: K92.1 Melena (principal); R10.9 Unspecified abdominal pain | CPT/HCPCS: 99202 ==

== ENCOUNTER 2022-11-26 09:20 | Outpatient (REF) | payer MEDICAID, SELFPAY ==
--- NOTE | ~2022-11-26 | MM_ITS ---
EXAMINATION: MM SCREENING DIGITAL BREAST TOMOSYNTHESIS, BILATERAL CLINICAL INFORMATION: Screening. Asymptomatic. The lifetime risk of breast cancer based on the Tyrer-Cuzick Model is 7%. COMPARISON: Mammography: 08/19/2021, 02/12/2021, 01/04/2020, 220, 04/27/2020 TECHNIQUE: Digital breast tomosynthesis is performed in both the craniocaudal and mediolateral oblique views along with computer-aided detection (CAD). Synthesized 2D images are generated from the tomosynthesis. FINDINGS: There are scattered areas of fibroglandular density (ACR BI-RADS breast composition Category b). Parenchymal pattern is similar to prior studies. There is no developing density or interval significant mass or architectural abnormality. Biopsy clip marker again noted anterior upper outer left breast. There are scattered bilateral punctate round calcifications, similar in distribution. No abnormal calcifications. The axilla and skin contours are unremarkable. MM/MM tomosynthesis screening BI IMPRESSION: No mammographic evidence of malignancy. ASSESSMENT: BI-RADS 2: Benign RECOMMENDATION: Routine annual mammography screening. This patient's information was entered into a reminder system with a target due date for their next mammogram.
== END 2022-11-26 09:21 | disposition home or self-care (01) ==
LOC: HO.MAMMO 09:20
PROVIDERS: PCP Family Medicine; Visit Provider Family Medicine
DX: Z12.31 Encounter for screening mammogram for malignant neoplasm of breast (principal)
CPT/HCPCS: 77063; 77067

== ENCOUNTER 2022-12-18 11:02 | Outpatient (REF) | payer MEDICAID, SELFPAY ==
--- NOTE | ~2022-12-18 | US_ITS ---
EXAMINATION: US PELVIS COMPLETE CLINICAL INFORMATION: Fibroids COMPARISON: Pelvic ultrasound 02/24/2022 TECHNIQUE: Transabdominal and transvaginal imaging was performed. FINDINGS: The uterus is enlarged measuring 12.8 x 5.8 x 7.7 cm. A regular homogeneous endometrium is identified measuring 0.3 cm. Heterogeneous appearance of the uterus with multiple myomas including: A 4.5 cm subserosal right body myoma previously 5.0 cm, a 3.3 cm posterior body subserosal myoma previously 3.0 cm, a 2.7 cm anterior body intramural myoma previously no definite correlate on a background heterogeneity limits direct comparison, and a 3.6 cm subserosal myoma along the posterior body of the uterus previously 3.4 cm. The right ovary was not identified sonographically. The left measures 2.7 x 2.1 x 2.0 cm is unremarkable in appearance. No adnexal mass. There is no pelvic free fluid. US/US pelvic and transvaginal IMPRESSION: Enlarged myomatous uterus as detailed above. The right ovary was not identified sonographically. Left ovary is unremarkable.
== END 2022-12-18 11:03 | disposition home or self-care (01) ==
LOC: HO.US 11:02
PROVIDERS: Visit Provider Obstetrics & Gynecology
DX: D21.9 Benign neoplasm of connective and other soft tissue, unspecified (principal)
CPT/HCPCS: 76830; 76856

== ENCOUNTER 2022-12-31 11:13 | Outpatient (REF) | payer MEDICAID, SELFPAY ==
[2022-12-31 13:21] LABS: Hematocrit 35.1 % (37.0-47.0); Hemoglobin 11.3 g/dl (12.0-16.0); Mean Corpuscular HGB Conc 32.2 g/dl (31.0-35.0); Mean Corpuscular Volume 83.8 fL (80.0-98.0); Mean Platelet Volume 12.2 fL (9.4-12.3); Platelet Count 320 X10*3/uL (160-400); Red Blood Count 4.19 X10*6/uL (4.20-5.50); Red Cell Distribution Width 14.3 % (11.0-16.0); White Blood Count 9.1 X10*3/uL (4.8-10.8)
[2022-12-31 14:21] LABS: HCG Quantitative < 2 mIU/mL; TSH reflex Free T4 0.65 uIU/mL (0.32-4.0)
[2022-12-31 18:29] LABS: CT PCR NOT DETECTED (Not Detect.); NG PCR NOT DETECTED (Not Detect.)
[2023-01-01 09:53] LABS: Follicle Stimulating Hormone 15.7 mIU/mL; Lutenizing Hormone 3.8 mIU/mL
== END 2022-12-31 11:14 | disposition home or self-care (01) ==
LOC: HO.LAB 11:13
PROVIDERS: PCP Family Medicine; Visit Provider Obstetrics & Gynecology
DX: D21.9 Benign neoplasm of connective and other soft tissue, unspecified (principal); N93.9 Abnormal uterine and vaginal bleeding, unspecified
CPT/HCPCS: 0353U; 36415; 83001; 83002; 84443; 84702; 85027; 99212

== ENCOUNTER 2022-12-31 11:55 | Outpatient (REF) | payer MEDICAID, SELFPAY | END 2022-12-31 11:56 | disposition home or self-care (01) | LOC: HO.LNP 11:55 | PROVIDERS: Visit Provider Obstetrics & Gynecology | DX: Z13.89 Encounter for screening for other disorder (principal) ==

== ENCOUNTER 2023-01-21 10:30 | Outpatient (REF) | payer MEDICAID, SELFPAY | END 2023-01-21 10:31 | disposition home or self-care (01) | LOC: HO.LNP 10:30 | PROVIDERS: PCP Family Medicine; Visit Provider Obstetrics & Gynecology | DX: N39.3 Stress incontinence (female) (male) (principal) | CPT/HCPCS: 58100; 81025; 88305 ==

== ENCOUNTER → 2023-02-11 10:23 | Outpatient (BNVA) | payer MEDICAID, SELFPAY | PROVIDERS: PCP Family Medicine; Visit Provider Obstetrics & Gynecology | DX: N93.9 Abnormal uterine and vaginal bleeding, unspecified (principal) | CPT/HCPCS: 99212 ==

== ENCOUNTER 2023-03-25 10:33 | Outpatient (REF) | payer MEDICAID, SELFPAY ==
--- NOTE | ~2023-03-25 | XR_ITS ---
EXAMINATION: XR KNEE, LEFT CLINICAL INFORMATION: Pain COMPARISON: None available. TECHNIQUE: Three views of the left knee. FINDINGS: Bone alignment is normal. No fracture or dislocation. Mild medial femoral tibial joint space narrowing. Otherwise normal joint spaces. Osteophytes at the quadriceps tendon insertion to the patella and patellar tendon origin. No joint effusion. XR/XR knee LT 3V IMPRESSION: Mild degenerative changes.
--- NOTE | ~2023-03-25 | XR_ITS ---
EXAMINATION: XR SHOULDER, LEFT CLINICAL INFORMATION: Pain COMPARISON: None available. TECHNIQUE: AP external rotation, Grashey, scapular Y, and axillary views of the left shoulder. FINDINGS: Bone alignment is normal. No fracture or dislocation. Normal glenohumeral joint. Mild arthritis at the acromioclavicular joint. Normal soft tissues. XR/XR shoulder LT min 2V IMPRESSION: Mild arthritis at the acromioclavicular joint.
--- NOTE | ~2023-03-25 | XR_ITS ---
EXAMINATION: XR HIP, LEFT CLINICAL INFORMATION: Pain COMPARISON: None available. TECHNIQUE: Two views of the left hip. FINDINGS: Bone alignment is normal. No fracture or dislocation. Moderate Arthritis at the left hip joint with joint space narrowing and osteophyte formation. Normal soft tissues. XR/XR hip LT min 2V IMPRESSION: Mild to moderate arthritis.
--- NOTE | ~2023-03-25 | XR_ITS ---
EXAMINATION: XR ANKLE, LEFT CLINICAL INFORMATION: Pain COMPARISON: None available. TECHNIQUE: AP, lateral, and mortise views of the left ankle. FINDINGS: The bones are normal. No fracture. Alignment is anatomic. Joint spaces are maintained. No joint effusion. Small calcaneal spurs. Soft tissues are otherwise normal. XR/XR ankle LT min 3V IMPRESSION: Small calcaneal spurs.
== END 2023-03-25 10:34 | disposition home or self-care (01) ==
LOC: HO.XRAY 10:33
PROVIDERS: PCP Family Medicine; Visit Provider Family Medicine
DX: M25.512 Pain in left shoulder (principal); M25.572 Pain in left ankle and joints of left foot; M25.552 Pain in left hip; M25.562 Pain in left knee
CPT/HCPCS: 73030; 73502; 73562; 73610

== ENCOUNTER 2023-09-04 09:37 | Outpatient (AMB) | payer MEDICAID, SELFPAY ==
--- NOTE | 2023-09-04 09:39 | A.OFFVIS_ITS ---
Intake Vital Signs 09/04/23 09:40 Height 5 ft 2 in Weight 176 lb 8 oz BMI 32.3 BP 130/82 Blood Pressure Location Lt brachial Position Sitting Intake Visit Reasons: Vaginal irritation Intake Note: Pt presents to the office today for c/o vaginal irritation. Pt states she has itching that started thursday. Allergies No Known Allergies Allergy (Verified 09/04/23 09:42) none Allergy (Unknown, Uncoded 09/04/23 09:42) Unknown Medication List - Last Reconciled 09/04/23 by Dian Mcgrath CNM acetaminophen ER (Mapap Arthritis Pain) 650 mg PO Q8H PRN alcohol swabs (BD Alcohol Swabs) 0 pad topical TID blood sugar diagnostic (FreeStyle Lite Strips) As directed cholecalciferol (vitamin D3) 100 mcg PO DAILY lancets (FreeStyle Lancets) As directed lisinopril 40 mg PO DAILY metformin 1,000 mg PO BID methocarbamol 750 mg PO Q8H PRN omeprazole 20 mg PO BID sodium,potassium,mag sulfates 17.5-3.13-1.6 gram (Suprep Bowel Prep Kit) as per instructions HPI Vaginal irritation HPI Details Patient is here because she is having a horrible external vaginal irritation she has used every thing she could think of this week to make it better but nothing is helping. It started when she took antibiotics (az ithromycin Z-Lee (for a tooth infection that might need a root canal. It is better now. She is diabetic but she says her blood sugars are in good control mostly in the 120s and she had a visit with Dr. Storey who is her primary care provider recently and reviewed at all and there was no need for increase in medications. She is sexually active. She has a disabled child that she takes care of and so she is very motivated to take care of herself. The inflammation feels like her skin is burned and it is extremely itchy but is all external she has some under her pannus and it is in the entire groin area and covering most of the labia majora she also has some vaginal itching the labia minora. She knows that she was recommended to return for endometrial biopsies every 3 months, after having 1 that was negative, but she has not agreed with this plan, and has not wanted to pursue this she had had bleeding last year as follows With she had a period in July of 2022 she missed a period in August and September of 2022 she got a period in October of 2022 she did not have a period in November and her last period was December of 2022 she has not had a period since she is 53 years old and she believes she is simply in menopause she is feeling well and she does not think that she needs to come for endometrial biopsies anymore. She has never had an abnormal Pap smear. Her last Pap smear was negative with negative HPV in 2020. [facility] Medical History (Updated 09/04/23 @ 10:32 by Dian Mcgrath CNM) HTN (hypertension) Diabetes Social History Alcohol intake: never Patient Tobacco Use Status: Never used Tobacco Sexual orientation: Straight/Heterosexual Gender identity: Female Female Reproductive History Menstrual Age of Menarche: 9 control method: none Date of last pap smear: 07/23/21 History of abnormal pap smear: No History of STI: No Date of Mammogram: 11/26/22 Physical Exam Vital Signs: Last Vital Signs BP 130/82 09/04/23 09:40 BMI result Body Mass Index 32.3 Other: Her external skin is somewhat reddened then purplish under pannus and in both groin areas and over the mons pubis and labia majora. The labia minora are normal pink with normal appearing discharge that does not appear especially yeast E vaginal mucosa is pink and moist with normal appearing mucus cervix is multiparous and normal appearing Assessment & Plan Assessment & Plan (1) Cervical cancer screening: Comment: 07/22/21- pap= neg w neg hpv Code(s): Z12.4 - Encounter for screening for malignant neoplasm of cervix (2) Fungal infection of the groin: Code(s): B35.6 - Tinea cruris Plan Discussed the common occurrence of fungal/yeast overgrowth after use of antibiotics but also in the setting of increased blood sugars with diabetes and that it does not really take much. She has used several creams already including [id number] Monistat but I am prescribing it again for labial mucosa itching. For external use only I am prescribing Lotrisone but it is not to be used internally at all and I am also prescribing her Diflucan as she is diabetic and may need to approach it internally as well she may repeat the dose in 3 days if she still has symptoms. I am also ordering refills for her careful discussion about how to use each and how not to use each was to discussed. I also reviewed her Pap smear history with her which was negative and she is not due for another 1 until 2025 I also reviewed her previous visits and evaluations and endometrial biopsies and discussions that had taken place with a plan for return for endometrial biopsy every 3 months. She had declined use of a Mirena IU S to help control any abnormal bleeding. She believes that she is simply in menopause and that is why she would get a period 1 month and then miss 1 for couple of months and then this repeated itself for short while currently her last period was December of this year (it is now September 2023) she is 53 years old. I did review reasons for the concern and the plan as described in the last no I also discussed reasons why she would absolutely need to seek care if there was any hemorrhaging that would need to be addressed. She believes she is simply menopausal. Orders: Orders Bacterial Vaginosis Panel Today N89.8 - Other specified noninflammatory disorders of vagina CT NG by PCR Today N89.8 - Other specified noninflammatory disorders of vagina Medications: New miconazole nitrate 2% (Miconazole-7) 1 appful vaginal BEDTIME 7 days 45 grams 3RF clotrimazole-betamethasone 1-0.05 % 1 appl topical BID 2 weeks 45 grams 1RF fluconazole may repeat second dose 72 hrs after first dose if symptoms persist 150 mg PO Q3D 2 doses 2 tabs 3RF Coding Level of Care Code Est Pt Level 3 (54977) Diagnoses Cervical cancer screening Z12.4 Fungal infection of the groin B35.6
[2023-09-04 09:40] VITALS: BP 130/82; BMI 32.3
== END 2023-09-04 10:25 | disposition home or self-care (01) ==
LOC: HO.HWS 09:37
PROVIDERS: PCP Family Medicine; Visit Provider Advanced Practice Midwife
DX: Z12.4 Encounter for screening for malignant neoplasm of cervix (principal); B35.6 Tinea cruris
CPT/HCPCS: 99213

== ENCOUNTER 2023-09-04 09:37 | Outpatient (REF) | payer MEDICAID, SELFPAY ==
[2023-09-04 15:57] LABS: CT PCR NOT DETECTED (Not Detect.); NG PCR NOT DETECTED (Not Detect.)
[2023-09-05 13:32] LABS: BV Int Neg Control Negative (Negative); BV Int Pos Control Positive (Positive)
== END 2023-09-04 09:38 | disposition home or self-care (01) ==
LOC: HO.LNP 09:37
PROVIDERS: PCP Family Medicine; Visit Provider Advanced Practice Midwife
DX: N89.8 Other specified noninflammatory disorders of vagina (principal); B35.6 Tinea cruris; Z12.4 Encounter for screening for malignant neoplasm of cervix; Z11.3 Encounter for screening for infections with a predominantly sexual mode of transmission; Z79.84 Long term (current) use of oral hypoglycemic drugs; Z79.899 Other long term (current) drug therapy
CPT/HCPCS: 0353U; 87480; 87510; 87660; 99212

== ENCOUNTER 2023-11-30 08:51 | Outpatient (REF) | payer MEDICAID, SELFPAY ==
[2023-11-30 11:21] LABS: MANUAL DIFF FLAG NO
[2023-11-30 11:25] LABS: Basophils Absolute Auto 0.1 X10*3/uL (0.0-0.2); Basophils Percent Auto 0.5 % (0-2); Eosinophils Absolute Auto 0.2 X10*3/uL (0.0-0.4); Eosinophils Percent Auto 2.2 % (0-4); Hematocrit 37.3 % (37.0-47.0); Hemoglobin 11.8 g/dl (12.0-16.0); Imm Gran Abs Auto 0.03 X10*3/uL (0.00-0.03); Imm Gran Pct Auto 0.3 % (0.0-0.4); Lymphocytes Absolute Auto 3.2 X10*3/uL (1.2-4.9); Lymphocytes Percent Auto 34.5 % (20-40); Mean Corpuscular HGB Conc 31.6 g/dl (31.0-35.0); Mean Corpuscular Hemoglobin 26.6 pg (27.0-33.0); Mean Platelet Volume 11.9 fL (9.4-12.3); Monocytes Absolute Auto 0.9 X10*3/uL (0.1-1.2); Monocytes Percent Auto 9.3 % (2-11); Neutrophils Absolute Auto 4.9 x10*3/uL (2.0-8.3); Neutrophils Percent Auto 53.2 % (45-73); Platelet Count 306 X10*3/uL (160-400); Red Blood Count 4.44 X10*6/uL (4.20-5.50); Red Cell Distribution Width 13.2 % (11.0-16.0); White Blood Count 9.2 X10*3/uL (4.8-10.8)
[2023-11-30 11:53] LABS: Estimated Average Glucose 154 mg/dL
[2023-11-30 12:17] LABS: Creatinine Urine 130.41 mg/dL; Microalbum/Creatinine Ratio Ur 16.8 ug/mg cr (<30)
[2023-11-30 12:33] LABS: Folate 7.1 ng/mL (> or = 4.0); Vitamin B12 224 pg/mL (200-900)
[2023-11-30 12:36] LABS: Alanine Aminotransferase 24 U/L (0-31); Albumin Level 4.1 g/dL (3.5-5.0); Alkaline Phosphatase 67 U/L (39-117); Anion Gap 13 (12-20); Aspartate Amino Transferase 16 U/L (5-31); Bilirubin Direct < 0.2 mg/dL (0.0-0.5); Bilirubin Total 0.2 mg/dL (0.0-1.0); Blood Urea Nitrogen 16 mg/dL (9-16); Calcium 9.4 mg/dL (8.4-10.2); Carbon Dioxide 24 mmol/L (22-29); Chloride 105 mmol/L (96-108); Cholesterol 165 mg/dL (<200); Estimated Glomerular Filt Rate > 60; Glucose Random 127 mg/dL (60-115); HDL Cholesterol 42 mg/dL (>40); Iron 41 mcg/dL (30-160); LDL Cholesterol Calculated 92 mg/dL (<100); Percent Iron Saturation 14 % (15-50); Potassium 4.2 mmol/L (3.3-5.1); Sodium 138 mmol/L (135-145); Total Iron Binding Capacity 302 mcg/dL (228-428); Total Protein 7.9 g/dL (6.5-8.0); Triglycerides 155 mg/dL (<150); Unsaturated Iron Binding 261 ug/dL
[2023-11-30 12:57] LABS: Ferritin 28 ng/mL (10-250); Free T4 (Free Thyroxine) 0.99 ng/dL (0.71-1.85); Thyroid Stimulating Hormone 0.74 uIU/mL (0.32-4.0); Vitamin D 25-OH Total 34.9 ng/mL (>30)
[2023-12-01 13:33] LABS: Alpha Fetoprotein 1.8 ng/mL
== END 2023-11-30 08:52 | disposition home or self-care (01) ==
LOC: HO.HHCL 08:51
PROVIDERS: Visit Provider Family Medicine
DX: E11.9 Type 2 diabetes mellitus without complications (principal); K76.0 Fatty (change of) liver, not elsewhere classified
CPT/HCPCS: 36415; 80048; 80061; 80076; 82043; 82105; 82306; 82570; 82607; 82728; 82746; 83036; 83540; 84439; 84443; 85025

== ENCOUNTER 2023-12-02 09:20 | Outpatient (REF) | payer MEDICAID, SELFPAY ==
--- NOTE | ~2023-12-02 | MM_ITS ---
EXAMINATION: MM SCREENING DIGITAL BREAST TOMOSYNTHESIS, BILATERAL CLINICAL INFORMATION: Screening. Asymptomatic. COMPARISON: Mammography: This study is compared with prior exams dating back to 2017. TECHNIQUE: Digital breast tomosynthesis is performed in both the craniocaudal and mediolateral oblique views along with computer-aided detection (CAD). Synthesized 2D images are generated from the tomosynthesis. FINDINGS: There are scattered areas of fibroglandular density (ACR BI-RADS breast composition Category b). There are no significant masses, abnormal calcifications, or other abnormalities. There is a tissue marker present in the upper outer quadrant of the left breast from prior benign percutaneous biopsy. MM/MM tomosynthesis screening BI IMPRESSION: No mammographic evidence of malignancy. ASSESSMENT: BI-RADS BI-RADS 2 - Benign Findings RECOMMENDATION: Routine annual mammography screening. 1 year F/U This examination should not preclude the clinical evaluation of a suspicious palpable abnormality. This patient's information was entered into a reminder system with a target due date for their next mammogram.
== END 2023-12-02 09:21 | disposition home or self-care (01) ==
LOC: HO.MAMMO 09:20
PROVIDERS: PCP Family Medicine; Visit Provider Family Medicine
DX: Z12.31 Encounter for screening mammogram for malignant neoplasm of breast (principal)
CPT/HCPCS: 77063; 77067

== ENCOUNTER → 2023-12-02 09:45 | Outpatient (BNV) | payer MEDICAID, SELFPAY | PROVIDERS: PCP Family Medicine; Visit Provider Radiology Diagnostic Radiology | DX: Z12.31 Encounter for screening mammogram for malignant neoplasm of breast (principal) | CPT/HCPCS: 77063; 77067 ==

== ENCOUNTER 2024-01-13 12:07 | Outpatient (REF) | payer MEDICAID, SELFPAY ==
--- NOTE | ~2024-01-13 | XR_ITS ---
EXAMINATION: XR KNEE, RIGHT CLINICAL INFORMATION: Right knee pain worse with bending and kneeling, order states chronic pain of right knee worse with kneeling or bending. COMPARISON: 08/19/2022 right femur. TECHNIQUE: Three views of the right knee. FINDINGS: Mild narrowing of the medial compartment. Trace suprapatellar effusion. Tiny lateral marginal osteophytes. XR/XR knee RT 3V IMPRESSION: Mild degenerative changes.
== END 2024-01-13 12:08 | disposition home or self-care (01) ==
LOC: HO.HHCX 12:07
PROVIDERS: Visit Provider Family Medicine
DX: M25.561 Pain in right knee (principal); G89.29 Other chronic pain
CPT/HCPCS: 73562

== ENCOUNTER 2024-05-09 09:12 | Outpatient (AMB) | payer MEDICAID, SELFPAY ==
[2024-05-09 09:18] VITALS: BP 122/70; PULSE 66; BMI 31.9
--- NOTE | 2024-05-09 09:18 | MHC.OFFVIS ---
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: Yes Ladle Builder Name: [id number] Accompanied by: Self / Same As Patient Allergies No Known Allergies Allergy (Verified 09/04/23 09:42) none Allergy (Unknown, Uncoded 09/04/23 09:42) Unknown Medication List - Last Reconciled 05/09/24 by Saul Main MD acetaminophen ER (Mapap Arthritis Pain) 650 mg PO Q8H PRN alcohol swabs (BD Alcohol Swabs) 0 pad topical TID blood sugar diagnostic (FreeStyle Lite Strips) As directed cholecalciferol (vitamin D3) 100 mcg PO DAILY clotrimazole-betamethasone 1-0.05 % 1 appl topical BID 2 weeks lancets (FreeStyle Lancets) As directed lisinopril 40 mg PO DAILY metformin 1,000 mg PO BID methocarbamol 750 mg PO Q8H PRN omeprazole 20 mg PO BID HPI Comments Details: This is a cardiology consultation regarding chest pains. She is many comorbidities including diabetes, hypertension, dyslipidemia, obstructive sleep apnea. Has been having chest pains which may be somewhat longstanding. Per PCP notes, she had an equivocal stress test for mild ischemia in 2019. Patient states she still gets chest pains. Somewhat random. Can happen at rest but can also happen with exertion. Hence not very classical for angina. Also gets some palpitations. He has been referred for cardiac evaluation. [facility] Medical History (Updated 05/09/24 @ 09:58 by Saul Main MD) Skin tag Seborrheic dermatitis Chronic pain of right knee Chronic bilateral low back pain with left-sided sciatica Chronic GERD Major depression, recurrent, chronic Fatty liver Hyperlipidemia HTN (hypertension) Diabetes Family History Father Myocardial infarction Social History Alcohol intake: never Patient Tobacco Use Status: Never used Tobacco Sexual orientation: Straight/Heterosexual Gender identity: Female Female Reproductive History Menstrual Age of Menarche: 9 Review of Systems Const Denies chills, Denies daytime sleepiness, Denies fatigue, Denies fever(s), Denies lethargy, Denies snoring, Denies stops breathing during sleep, Denies weight gain, Denies weight loss and Denies other Eyes Denies loss of vision ENT Reports hearing loss Card Denies chest pain, Denies irregular heart rhythm, Denies claudication, Denies leg edema, Denies lightheadedness, Denies palpitations, Denies dyspnea, Denies dyspnea on exertion, Denies orthopnea and Reports other Resp Denies cough, Denies excessive phlegm production, Denies dyspnea, Denies dyspnea on exertion and Denies snoring GI Denies abdominal pain, Denies hematochezia, Denies change in bowel habits, Denies nausea and Denies vomiting Denies dysuria Musc Denies arthralgias, Denies muscle weakness and Denies numbness Skin/Breast Reports as per HPI, Denies nail changes and Denies rash Neuro Reports confusion, Denies loss of vision, Denies memory loss and Denies numbness Psych Reports anxiety, Reports confusion, Denies depression and Denies memory loss Endo Denies fatigue and Denies palpitations Maciej/Lymph Denies easy bruising Physical Exam Vital Signs: Last Vital Signs Pulse 66 05/09/24 09:18 BP 122/70 05/09/24 09:18 BMI result Body Mass Index 31.9 Const General: confusion Orientation/consciousness: confusion HEENT Other: Unremarkable Head: Yes normal to inspection Neck Neck: Yes normal visual inspection Chest Chest palpation & inspection: normal inspection of the chest Resp Auscultation: clear to auscultation bilaterally Cardio Palpation: normal PMI Heart sounds: S1 normal heart sound present, S2 normal heart sound present, no gallops, no murmurs and no rubs GI Palpation (GI): Soft to palpation Back/Spine/Pelvis Other: unremarkable Skin General skin exam: no rashes or lesions noted Neuro General: confusion Extrem General: Yes normal to inspection Psych Mental Status: mental status grossly normal Office Procedures EKG Details: EKG with sinus rhythm at 66/Min; no significant ST-T changes and otherwise unremarkable[place] [id number], Complete Assessment & Plan Assessment & Plan (1) Precordial chest pain: Code(s): R07.2 - Precordial pain Category: Medical Plan Patient with many comorbidities including diabetes hypertension presenting for somewhat atypical sounding chest pains. Previously, equivocal stress test. Obtain echocardiogram and exercise stress echocardiogram. Follow-up after the above. Orders: Orders CA echo transthoracic complete Today R07.2 - Precordial pain CA echo stress exercise Today R07.2 - Precordial pain Coding Level of Care Code New Pt Level 4 (93089) Diagnoses Precordial chest pain R07.2 CPT Codes EKG - CPT: [id number], Complete ([id number])
== END 2024-05-09 09:54 | disposition home or self-care (01) ==
PROVIDERS: PCP Family Medicine; Referring Provider Family Medicine; Visit Provider Internal Medicine
DX: R07.2 Precordial pain (principal)
CPT/HCPCS: 93010; 99204

== ENCOUNTER → 2024-05-09 09:12 | Outpatient (BNVA) | payer MEDICAID, SELFPAY | PROVIDERS: PCP Family Medicine; Visit Provider Internal Medicine | DX: R07.2 Precordial pain (principal); I10 Essential (primary) hypertension; E11.9 Type 2 diabetes mellitus without complications | CPT/HCPCS: 93005; 99202 ==

== ENCOUNTER → 2024-05-20 12:46 | Outpatient (REF) | payer MEDICAID, SELFPAY ==
--- NOTE | 2024-05-20 12:52 | CA_ITS ---
Transthoracic Echocardiogram Patient (Last, First, Middle): Ira Newberry, Gender: Female Date of : 1970 Age: 54 Procedure Date: 05/20/2024 Procedure Type: Transthoracic Echocardiogram Location: OP Height: 157.48 cm Weight: 78.47 kg BSA: 1.80 m2 Heart Rate: bpm BP: 122 / 70 mmHg Hand Edge Bander: KOURTNEY Emerson MD: Saul Main MD Firewall Engineer: Vin Su MD Symptoms: R07.2 - Precordial pain Study Quality: Fair ECG Rhythm: Sinus Conclusions: - Normal study Findings Left Ventricle Normal left ventricular size, thickness, and systolic function. The visually estimated ejection fraction is between 60-65%. Spectral Doppler is indicative of a normal filling pattern. Right Ventricle Normal right ventricular cavity size and systolic function. Atria Both atria are normal in size. There is no evidence of interatrial shunt. Aortic Valve Normal aortic valve structure and function. There is no aortic valve stenosis. There is no aortic valve regurgitation. Mitral Valve Normal mitral valve structure and function. There is no mitral valve regurgitation. There is no mitral valve stenosis. Pulmonic Valve The pulmonic valve is likely normal. There is trace pulmonic valve regurgitation. Tricuspid Valve Normal tricuspid valve structure. There is trace tricuspid valve regurgitation. The right ventricular systolic pressure is normal. The right ventricular systolic pressure is 17 mmHg. Normal right atrial pressure. There is no evidence of pulmonary hypertension. Great Vessels All visible segments of the aorta are normal in size. The pulmonary artery was not well visualized. Venous The inferior vena cava is normal in size and collapses greater than 50% with inspiration. Pericardium/Pleural There is no evidence of pericardial effusion. Prior Study Comparison No significant change compared to prior study dated: 08/25/2017. Measurements 2D Linear Measurements IVSd: 1.00 0.6-0.9/0.6-1.0 cm LVIDd: 4.26 3.9-5.3/4.2-5.9 cm LVIDd Index: 2.37 2.4-3.2/2.2-3.1 cm/m2 LVIDs: 2.53 2.0-3.6 cm LVPWd: 0.83 0.7-1.1 cm Ao Root: 2.50 2.1-3.5 cm LA Diam: 3.30 2.7-3.8/3.0-4.0 cm LAIDs Index: 1.83 1.5-2.3 cm/m2 LV Mass: 154.50 67-162/88-224 g LV Mass Index: 85.83 43-95/49-115 g/m2 LVOT Diam: 1.90 3.0+(-)1.3 cm 2D Systolic Function EF 4C: 59.80 >55% EF 2C: 61.20 >55% EF BiP: 60.80 >55% Mitral Valve MV Pk E: 1.09 MV PK A: 0.95 MV Decel Time: 217.00 E/A: 1.10 E'Lateral: 10.60 E'Medial: 7.72 E/E' Med: 14.10 E/E' Lat: 10.30 PHT: 63.00 MVA PHT: 3.49 Decel [place]: 5.03 Aortic Valve AoV Pk Alan: 1.66 AoV Mn Alan: 1.12 AoV VTI: 0.33 AoV Pk Grad: 11.00 Aov Mn Grad: 6.00 MILI Cont.VTI: 2.16 LVOT LVOT Pk Alan: 1.12 LVOT Mn Alan: 0.75 LVOT VTI: 0.25 LVOT Pk Grad: 5.00 LVOT Mn Grad: 3.00 LVOT Diam: 1.90 LVOT Area: 2.84 Diastolic Function MV Pk E: 1.09 MV Pk A: 0.95 E/A: 1.10 E'Medial: 7.72 E/E' Med: 14.10 E' Laterial: 10.60 E/E' Lat: 10.30 Right Ventricle TAPSE (mm): 19.50 TVS' Alan: 14.60 Tricuspid Valve TR Pk Alan: 1.86 TR Pk Grad: 14.00 RA Press: 3.00 RVSP: 17.00 Great Vessels Aorta Ao Root-2D: 2.50 2.0-3.7 cm Ao Asc: 3.00 2.1-3.4 cm Ao Arch: 2.40 Updated in Other Vendor System with Status of Final Vin Su MD electronically signed on 05/21/2024 11:50:13 AM with status of Final
== END ==
LOC: HO.CARD 12:46
PROVIDERS: PCP Family Medicine; Visit Provider Internal Medicine
DX: R07.2 Precordial pain (principal)
CPT/HCPCS: 93306

== ENCOUNTER → 2024-05-20 12:52 | Outpatient (BNV) | payer MEDICAID, SELFPAY | PROVIDERS: PCP Family Medicine; Visit Provider Internal Medicine Cardiovascular Disease | DX: R07.2 Precordial pain (principal) | CPT/HCPCS: 93306 ==

== ENCOUNTER 2024-06-09 12:08 | Outpatient (AMB) | payer MEDICAID, SELFPAY ==
--- NOTE | 2024-06-09 12:43 | MHC.OFFVIS ---
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 Patient reports off and on pain for about 3 years. No hx of injections and would like to decline get one. No hx of injury. She has seen [facility] for her left knee OA back in 2018. She states that her pain is on top of the knee and it gets worse when going up and down the stairs. She mentions that she feels a cracking sensation in her knee when she is bending. Patient has tried and failed 3 + months of taking Tylenol/NSAIDs. Patient tried and failed 3 + months of at home exercises. 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 The patient was seen by her PCP on 01/13/24 when she reported right knee pain status post a fall. ? ? While in the office today, the patient reports intermittent pain for three years, since 2020. She states the pain is on the top of her right knee and increases with going up and down the stairs. She also reports a cracking sensation in the right knee when bending. She has tried and failed more than three months of Tylenol and NSAIDs, as well as home exercises. ? ? Patient denies a history of cortisone injections and is not interested in getting one today. ? ? Patient confirms being seen by Dr. Negrete for left knee pain in 2018.? [facility] Medical History (Updated 06/09/24 @ 13:21 by Fernanda Oviedo) Skin tag Seborrheic dermatitis Chronic pain of right knee Chronic bilateral low back pain with left-sided sciatica Chronic GERD Major depression, recurrent, chronic Fatty liver Hyperlipidemia HTN (hypertension) Diabetes Family History Father Myocardial infarction Social History Alcohol intake: never Patient Tobacco Use Status: Never used Tobacco Sexual orientation: Straight/Heterosexual Gender identity: Female Female Reproductive History Menstrual Age of Menarche: 9 Review of Systems Const All systems reviewed & are unremarkable except as noted in HPI and below Physical Exam Vital Signs: BMI result Body Mass Index 31.8 Const General: cooperative, healthy appearing and no acute distress Resp Effort & Inspection: normal respiratory effort and able to speak in complete sentences Cardio Rate: regular rate Peripheral pulses: Peripheral pulses 2+ throughout GI Palpation (GI): Soft to palpation Skin Lesions: no lesions Rashes: no rashes Extrem Other: Right knee: Normal to inspection. No ecchymosis, erythema, or joint effusion. No tenderness to palpation along the lateral joint line. Tenderness to palpation along the medial joint line. Full knee extension and flexion with mild crepitus. Negative Norah's. NVI.?? Assessment & Plan Assessment & Plan (1) Internal derangement of right knee: Code(s): M23.91 - Unspecified internal derangement of right knee Category: Medical Plan Ms. Newberry is a 54-year-old female, who is Irish speaking, presents in the office today, as a new patient, for an evaluation of right knee pain. The patient was seen by her PCP on 01/13/24 when she reported right knee pain status post a fall. ? ? While in the office today, the patient reports intermittent pain for three years, since 2020. She states the pain is on the top of her right knee and increases with going up and down the stairs. She also reports a cracking sensation in the right knee when bending. She has tried and failed more than three months of Tylenol and NSAIDs, as well as home exercises. ? ? Patient denies a history of cortisone injections and is not interested in getting one today. ? ? Patient confirms being seen by Dr. Negrete for left knee pain in 2018.? ? We discussed the role of cortisone and gel injections; however, the patient would like to defer at this time. She does endorse numbness and tingling occasionally throughout the right lower extremity. She also reports occasional back pain with an electric sensation from the lower back down to her right foot. The x-rays do show slight arthritic changes I do feel she has some level of lower back pathology that is enhancing her right knee pain. She complains of ongoing right lower extremity cramps that is very concerning for her as she has a 21-year-old child that is dependent on her care. The cramping makes this difficult for her to care for them because when she gets the cramps at night, she is unable to ambulating. A referral to Physiatry for further evaluation and treatment was made in the office today to see if they could assist with a non-surgical treatment option. Follow-up will be PRN, or sooner if needed. ? ? X-rays of the right knee which were obtained while in the office today and were reviewed by me, Aleksandra Reddy PA-C, revealed no acute fracture or dislocation. Mild arthritic changes. ? ? X-rays of the right knee, obtained on 01/13/24, revealed: Mild degenerative changes.? Orders: Orders XR knee LT 2V Today M25.569 - Pain in unspecified knee XR knee RT 1V Today M25.569 - Pain in unspecified knee Patient Instructions: Scribed by Fernanda Oviedo, chief medical physicist, for Aleksandra Reddy PA-C on 06/09/2024 at 12:23 pm, EST.? Coding Level of Care Code New Pt Level 4 (81116) Diagnoses Internal derangement of right knee M23.91
[2024-06-09 12:49] VITALS: BMI 31.8
== END 2024-06-09 13:32 | disposition home or self-care (01) ==
PROVIDERS: PCP Family Medicine; Visit Provider Physician Assistant
DX: M23.91 Unspecified internal derangement of right knee (principal)
CPT/HCPCS: 99204

== ENCOUNTER 2024-06-09 12:08 | Outpatient (REF) | payer MEDICAID, SELFPAY ==
--- NOTE | ~2024-06-09 | XR_ITS ---
EXAMINATION: XR KNEE, RIGHT CLINICAL INFORMATION: Pain in unspecified knee. COMPARISON: 01/13/2024 right knee radiographs. TECHNIQUE: AP view bilateral knees standing, and sunrise view right knee. No lateral was included. FINDINGS: RIGHT KNEE: -No fracture, dislocation, or suspicious focal bony and abnormality. Normal alignment on these 2 limited views. No patellar tilt. Joint spaces demonstrate minimal medial compartment narrowing. Lateral and patellofemoral compartments appear normal. -Soft tissues appear normal. Cannot assess for joint effusion due to lack of lateral. LEFT KNEE: -No fracture, dislocation, or suspicious focal bony abnormality. Normal alignment on this AP view. Joint spaces are preserved. Extremely small lateral compartment marginal osteophytes. -Soft tissues appear normal. Cannot assess for joint effusion due to lack of lateral projection. XR/XR knee LT 2V IMPRESSION: 1. Limited exams without lateral. 2. Minimal medial compartment arthritis right knee. 3. Minimal lateral compartment arthritis left knee. Electronically signed by: Jimmy Hidalgo MD 07/25/2024 02:35 PM EDT
--- NOTE | ~2024-06-09 | XR_ITS ---
EXAMINATION: XR KNEE, RIGHT CLINICAL INFORMATION: Pain in unspecified knee. COMPARISON: 01/13/2024 right knee radiographs. TECHNIQUE: AP view bilateral knees standing, and sunrise view right knee. No lateral was included. FINDINGS: RIGHT KNEE: -No fracture, dislocation, or suspicious focal bony and abnormality. Normal alignment on these 2 limited views. No patellar tilt. Joint spaces demonstrate minimal medial compartment narrowing. Lateral and patellofemoral compartments appear normal. -Soft tissues appear normal. Cannot assess for joint effusion due to lack of lateral. LEFT KNEE: -No fracture, dislocation, or suspicious focal bony abnormality. Normal alignment on this AP view. Joint spaces are preserved. Extremely small lateral compartment marginal osteophytes. -Soft tissues appear normal. Cannot assess for joint effusion due to lack of lateral projection. XR/XR knee RT 1V IMPRESSION: 1. Limited exams without lateral. 2. Minimal medial compartment arthritis right knee. 3. Minimal lateral compartment arthritis left knee. Electronically signed by: Jimmy Hidalgo MD 07/25/2024 02:35 PM EDT
== END 2024-06-09 12:09 | disposition home or self-care (01) ==
LOC: HO.HOSX 12:08
PROVIDERS: PCP Family Medicine; Visit Provider Physician Assistant
DX: M25.569 Pain in unspecified knee (principal); M23.91 Unspecified internal derangement of right knee
CPT/HCPCS: 73560; 99212

== ENCOUNTER → 2024-06-09 12:56 | Outpatient (BNV) | payer MEDICAID, SELFPAY | PROVIDERS: PCP Family Medicine; Visit Provider Radiology Diagnostic Radiology | DX: M17.0 Bilateral primary osteoarthritis of knee (principal) | CPT/HCPCS: 73560 ==

== ENCOUNTER → 2024-08-02 10:36 | Outpatient (REF) | payer MEDICAID, SELFPAY ==
--- NOTE | 2024-08-02 10:38 | CA_ITS ---
Acquisition Time: 2024-08-02 10:57:24 Total Exercise Time: 00:06:30 Test Indications: Palpitations Medications: LISINOPRIL METFORMIN OMEPRAZOLE METHOCARBAMO;L Protocol: WILDER Max HR: 157 BPM 95% of Pred: 164 BPM Max BP: 198/070 mmHG Max Work Load: 7.7 METS Exercise stress test exercise 6 min 30 sec of Wilder protocol achieving 95% MPHR, with mild SOB, no chest discomfort, with isolated PACs, with hypertensive response to exercise, without EKG changes, Echo images obtained by tech at rest and immediately post peak exercise. Definity contrast used. Test reviewed with Dr Benavidez. Referred By: Saul Main Overread By: Yesi Hidalgo
== END ==
LOC: HO.CARD 10:36
PROVIDERS: PCP Family Medicine; Visit Provider Internal Medicine
DX: R07.2 Precordial pain (principal)
CPT/HCPCS: 93350; Q9957

== ENCOUNTER → 2024-08-02 10:38 | Outpatient (BNV) | payer MEDICAID, SELFPAY | PROVIDERS: PCP Family Medicine; Visit Provider Nurse Practitioner | DX: R06.02 Shortness of breath (principal); I49.1 Atrial premature depolarization | CPT/HCPCS: 93016; 93018; 93350; 93352 ==

== ENCOUNTER 2024-08-08 10:27 | Outpatient (AMB) | payer MEDICAID, SELFPAY ==
--- NOTE | 2024-08-08 10:29 | MHC.OFFVIS ---
Vital Signs 08/08/24 10:30 Height 5 ft 2 in Weight 178 lb 2.136 oz BMI 32.6 BP 130/66 Blood Pressure Location Lt brachial Position Sitting Pulse 68 Pulse Source Pulse Oximeter Intake Visit Reasons: r/s 06/21/24 f/u echo/stress echo HS Cardiac Cath Technologist Required: Yes Cardiac Cath Technologist Name: Angel [id number] Accompanied by: Self / Same As Patient Allergies No Known Allergies Allergy (Verified 06/09/24 12:48) none Allergy (Unknown, Uncoded 09/04/23 09:42) Unknown Medication List - Last Reconciled 08/08/24 by Saul Main MD acetaminophen ER (Mapap Arthritis Pain) 650 mg PO Q8H PRN alcohol swabs (BD Alcohol Swabs) 0 pad topical TID blood sugar diagnostic (FreeStyle Lite Strips) As directed cholecalciferol (vitamin D3) 100 mcg PO DAILY clotrimazole-betamethasone 1-0.05 % 1 appl topical BID 2 weeks lancets (FreeStyle Lancets) As directed lisinopril 40 mg PO DAILY metformin 1,000 mg PO BID omeprazole 20 mg PO BID HPI Comments Details: Ira returns for follow-up. Recently seen in consultation regarding chest pains. Many comorbidities including diabetes, hypertension, dyslipidemia, obstructive sleep apnea. Longstanding nonexertional chest pains. Per PCP notes, she had an equivocal stress test for mild ischemia in 2019. Recently, she underwent an echocardiogram/exercise stress echocardiogram. She states that she is feeling fine overall. Has not had any recent chest pains. [facility] Medical History (Updated 06/09/24 @ 13:21 by Fernanda Oviedo) Skin tag Seborrheic dermatitis Chronic pain of right knee Chronic bilateral low back pain with left-sided sciatica Chronic GERD Major depression, recurrent, chronic Fatty liver Hyperlipidemia HTN (hypertension) Diabetes Family History Father Myocardial infarction Social History Alcohol intake: never Patient Tobacco Use Status: Never used Tobacco Sexual orientation: Straight/Heterosexual Gender identity: Female Female Reproductive History Menstrual Age of Menarche: 9 Review of Systems Const All systems reviewed & are unremarkable except as noted in HPI and below Reports as per HPI and Reports no additional complaints Eyes Reports as per HPI and Denies no additional complaints ENT Denies no additional complaints and Reports as per HPI Card Reports as per HPI, Reports no additional complaints, Denies acrocyanosis, Denies chest pain, Denies leg edema, Denies lightheadedness, Denies palpitations and Denies dyspnea Resp Reports as per HPI, Denies no additional complaints and Denies dyspnea GI Reports as per HPI and Denies no additional complaints Reports as per HPI Musc Reports no additional complaints and Reports as per HPI Skin/Breast Reports system reviewed and no additional complaints, except as documented Neuro Reports no additional complaints and Reports as per HPI Psych Reports no additional complaints and Reports as per HPI Endo Reports no additional complaints, Reports as per HPI and Denies palpitations Maciej/Lymph Reports no additional complaints and Reports as per HPI Aller/Immun Reports no additional complaints and Reports as per HPI Physical Exam Vital Signs: Last Vital Signs Pulse 68 08/08/24 10:30 BP 130/66 08/08/24 10:30 BMI result Body Mass Index 32.6 Const General: comfortable and no acute distress Orientation/consciousness: patient oriented x3 HEENT Other: Unremarkable Head: Yes normal to inspection Neck Neck: Yes normal visual inspection Chest Chest palpation & inspection: normal inspection of the chest Resp Auscultation: clear to auscultation bilaterally Cardio Palpation: normal PMI Heart sounds: S1 normal heart sound present, S2 normal heart sound present, no gallops, no murmurs and no rubs GI Palpation (GI): Soft to palpation Back/Spine/Pelvis Other: unremarkable Skin General skin exam: no rashes or lesions noted Neuro General: patient oriented x3 Extrem General: Yes normal to inspection Psych Mental Status: mental status grossly normal Assessment & Plan Assessment & Plan (1) Precordial chest pain: Code(s): R07.2 - Precordial pain Category: Medical Plan Echocardiogram with LVEF of 60-65%; normal diastolic filling and no significant valvular findings. In the exercise stress echocardiogram, she was able to exercise for 7.7 METS; reached target heart rate; no angina; hypertensive blood pressure response; no EKG evidence of ischemia and unremarkable echocardiographic component. There was also no evidence of any exercise-induced diastolic dysfunction or pulmonary hypertension. Overall, chest pain is probably noncardiac and she has not had it recently either. Continue risk factor modification with optimal treatment of diabetes and hypertension. Coding Level of Care Code Est Pt Level 3 (51290) Diagnoses Precordial chest pain R07.2
[2024-08-08 10:30] VITALS: BP 130/66; PULSE 68; BMI 32.6
== END 2024-08-08 10:46 | disposition home or self-care (01) ==
PROVIDERS: PCP Family Medicine; Referring Provider Family Medicine; Visit Provider Internal Medicine
DX: R07.2 Precordial pain (principal)
CPT/HCPCS: 99213

== ENCOUNTER → 2024-08-08 10:27 | Outpatient (BNVA) | payer MEDICAID, SELFPAY | PROVIDERS: PCP Family Medicine; Visit Provider Internal Medicine | DX: R07.2 Precordial pain (principal) | CPT/HCPCS: 99212 ==

== ENCOUNTER 2024-09-02 10:28 | Outpatient (REF) | payer MEDICAID, SELFPAY ==
--- NOTE | ~2024-09-02 | US_ITS ---
EXAMINATION: MM DIAGNOSTIC DIGITAL BREAST TOMOSYNTHESIS, BILATERAL CLINICAL INFORMATION: Left breast pain. Annual right mammography. COMPARISON: Mammography: Comparison is made with relevant prior exams. TECHNIQUE: Digital breast mammography with tomosynthesis is performed in both the craniocaudal and mediolateral oblique views along with computer-aided detection (CAD). Left breast ultrasound Limited. FINDINGS: There are scattered areas of fibroglandular density (ACR BI-RADS breast composition Category b). There are no significant masses, abnormal calcifications, or other abnormalities. Left breast ultrasound: Targeted color Doppler ultrasound scanning from 1-3 o'clock in the area the patient's pain demonstrates a normal-appearing intramammary lymph node at 2:00 13 cm from the nipple. There is a simple cyst at 3:00 6 cm from the nipple measuring 3 x 2 x 3 mm this is likely incidental. Otherwise there is normal fibronodular breast tissue. There is no sonographic abnormality. Results are provided to the patient at time of visit by the technologist. US/US breast LT limited mamm only IMPRESSION: No mammographic evidence of malignancy. Incidental normal intramammary lymph node and simple cyst at 2:00. No sonographic or mammographic abnormality to account for the patient's left breast pain. Recommend clinical evaluation and follow-up. ASSESSMENT: BI-RADS BI-RADS 2 - Benign Findings RECOMMENDATION: 1 year F/U Clinical follow-up and evaluation. This patient's information was entered into a reminder system with a target due date for their next mammogram. Electronically signed by: Samia Salazar DO 09/02/2024 02:39 PM EDT
== END 2024-09-02 10:29 | disposition home or self-care (01) ==
LOC: HO.MAMMO 10:28
PROVIDERS: PCP Family Medicine; Visit Provider Internal Medicine
DX: N63.0 Unspecified lump in unspecified breast (principal); N64.4 Mastodynia
CPT/HCPCS: 76642; 77062; 77066

== ENCOUNTER → 2024-09-02 10:30 | Outpatient (BNV) | payer MEDICAID, SELFPAY | PROVIDERS: PCP Family Medicine; Visit Provider Internal Medicine | DX: N64.4 Mastodynia (principal) | CPT/HCPCS: 76642; 77062; 77066 ==

== ENCOUNTER 2024-10-05 07:42 | Outpatient (REF) | payer MEDICAID, SELFPAY | END 2024-10-05 07:43 | disposition home or self-care (01) | LOC: HO.CT 07:42 | PROVIDERS: PCP Family Medicine; Visit Provider Family Medicine | DX: R51.9 Headache, unspecified (principal) | CPT/HCPCS: 70450 ==

== ENCOUNTER 2024-11-24 10:09 | Outpatient (AMB) | payer MEDICAID, SELFPAY ==
--- NOTE | 2024-11-24 10:12 | A.OFFVIS_ITS ---
Vital Signs 11/24/24 10:13 Height 5 ft 2 in Weight 170 lb BMI 31.1 Intake Visit Reasons: Breast Nodule Intake Note: This patient was referred by Dr. Addison for breast nodule. Pt c/o; no breast concerns. Imagin09/02/2024: MM Diag Breast US Tipple Supervisor Required: Yes Tipple Supervisor Language: Breaker Hand Services: Tipple Supervisor Present Tipple Supervisor Name: Keyla Information Interpreted: non-clinical & clinical Accompanied by: Self / Same As Patient Allergies No Known Allergies Allergy (Verified 11/24/24 10:20) none Allergy (Unknown, Uncoded 11/24/24 10:20) Unknown HPI HPI Breast Nodule: Details: [age] year old female referred for a palpable mass and pain on the left breast. She says that she had noticed this for about 6 months. She says that she does not feel the mass all the time. She describes some sharp pains on the left breast periodically. She did have an ultrasound and mammogram done last September, showing a normal-looking intramammary lymph node at the 2 o'clock position. This was considered a BI-RADS 2 benign finding. A follow-up imaging was recommended w reed 1 year. He had menarche was at the age of 11. Her 1st was at age of 17 but this was a miscarriage. She had a total of 6 pregnancies but she only had 2 live births. She had menopause at the age of 52. She does describe a maternal aunt who had breast cancer at the age of 26. [facility] S[facility] TO [facility] Medical History (Updated 11/24/24 @ 10:30 by Cayden Leong MD) Family history of breast cancer Skin tag Seborrheic dermatitis Chronic pain of right knee Chronic bilateral low back pain with left-sided sciatica Chronic GERD Major depression, recurrent, chronic Fatty liver Hyperlipidemia HTN (hypertension) Diabetes Surgical History History of cholecystectomy Family History Father Myocardial infarction Maternal Aunt Breast cancer, Onset Age: 24 Social History Alcohol intake: never Patient Tobacco Use Status: Never used Tobacco Sexual orientation: Straight/Heterosexual Gender identity: Female Female Reproductive History Menstrual Age of Menarche: 9 Full term: 2 Ab spontaneous: 4 Review of Systems Const Denies chills and Denies fever(s) Card Denies chest pain, Denies dyspnea and Denies dyspnea on exertion Resp Denies cough, Denies dyspnea and Denies dyspnea on exertion GI Denies hematochezia and Denies change in bowel habits Denies hematuria Musc Denies back pain and Denies limited range of motion Neuro Denies focal weakness and Denies convulsions Psych Denies depression and Denies mood swings Physical Exam Vital Signs: BMI result Body Mass Index 31.1 Const General: comfortable and no acute distress Orientation/consciousness: patient oriented x3 Neck Neck: Yes no lymphadenopathy Chest Other: No palpable breast masses, no nipple or skin changes, no tenderness at this time, no axillary lymphadenopathy Resp Auscultation: clear to auscultation bilaterally Cardio Rhythm: regular rhythm GI Palpation (GI): Soft to palpation, nontender and no guarding Neuro General: patient oriented x3 Assessment & Plan Assessment & Plan (1) Breast mass, left: Code(s): N63.20 - Unspecified lump in the left breast, unspecified quadrant Category: Medical Plan: She says she occasionally feels a left breast lump. She does not feel this mass today. She describes some pain on the left breast as well on and off. She already had imaging studies with an ultrasound and mammogram which appeared to show benign findings with note of a normal-appearing inframammary lymph node. Current exam does not reveal any palpable mass or axillary lymphadenopathy. I explained to her that it does not appear that she would require any biopsy or any surgical intervention. I did remind her to continue to have her regular screening mammograms. (2) Family history of breast cancer: Code(s): Z80.3 - Family history of malignant neoplasm of breast Category: Medical Plan: She says that her maternal aunt was diagnosed to have breast cancer at age of 26. She therefore may qualify for genetic testing with [facility]. I explained to her the indications of this test to herself and her family. She says she is interested so we will schedule her for genetic counseling and genetic testing here in the office. Coding Level of Care Code New Pt Level 4 (18471) Diagnoses Breast mass, left N63.20 Family history of breast cancer Z80.3
[2024-11-24 10:13] VITALS: BMI 31.1
== END 2024-11-24 10:38 | disposition home or self-care (01) ==
PROVIDERS: PCP Family Medicine; Visit Provider Surgery
DX: N63.20 Unspecified lump in the left breast, unspecified quadrant (principal); Z80.3 Family history of malignant neoplasm of breast
CPT/HCPCS: 99204

== ENCOUNTER → 2024-11-24 10:09 | Outpatient (BNVA) | payer MEDICAID, SELFPAY | PROVIDERS: PCP Family Medicine; Visit Provider Surgery | DX: N63.20 Unspecified lump in the left breast, unspecified quadrant (principal); N64.4 Mastodynia; Z80.3 Family history of malignant neoplasm of breast | CPT/HCPCS: 99202 ==

== ENCOUNTER 2025-01-18 11:13 | Outpatient (AMB) | payer MEDICAID, SELFPAY ==
--- NOTE | 2025-01-18 11:57 | MHC.OFFVIS ---
Intake Visit Reasons: Genetic test results *Here* Burial Agent Required: Yes Burial Agent Language: Case Manager Specialist Services: Burial Agent Present (Keyla) Information Interpreted: non-clinical & clinical Accompanied by: Self / Same As Patient Allergies No Known Allergies Allergy (Verified 01/18/25 11:58) none Allergy (Unknown, Uncoded 01/18/25 11:58) Unknown Medication List - Last Reconciled 01/18/25 by Cayden Leong MD acetaminophen ER (Mapap Arthritis Pain) 650 mg PO Q8H PRN alcohol swabs (BD Alcohol Swabs) 0 pad topical TID amlodipine mg PO DAILY blood sugar diagnostic (FreeStyle Lite Strips) As directed cholecalciferol (vitamin D3) 100 mcg PO DAILY clotrimazole-betamethasone 1-0.05 % 1 appl topical BID 2 weeks lancets (FreeStyle Lancets) As directed lisinopril 40 mg PO DAILY metformin 1,000 mg PO BID omeprazole 20 mg PO BID HPI HPI Genetic test results *Here*: Details: She is here to discuss results of her genetic testing. I had sent her for [facility] genetic testing in view of her strong family history of breast cancer. She has no new complaints at this time. [facility] Medical History Family history of breast cancer Skin tag Seborrheic dermatitis Chronic pain of right knee Chronic bilateral low back pain with left-sided sciatica Chronic GERD Major depression, recurrent, chronic Fatty liver Hyperlipidemia HTN (hypertension) Diabetes Surgical History History of cholecystectomy Family History Father Myocardial infarction Maternal Aunt Breast cancer, Onset Age: 24 Social History Alcohol intake: never Patient Tobacco Use Status: Never used Tobacco Sexual orientation: Straight/Heterosexual Gender identity: Female Female Reproductive History Menstrual Age of Menarche: 9 Review of Systems Const Denies chills and Denies fever(s) Card Denies chest pain, Denies dyspnea and Denies dyspnea on exertion Resp Denies cough, Denies dyspnea and Denies dyspnea on exertion GI Denies hematochezia and Denies change in bowel habits Denies hematuria Musc Denies back pain and Denies limited range of motion Neuro Denies focal weakness and Denies convulsions Psych Denies depression and Denies mood swings Physical Exam Const General: comfortable and no acute distress Resp Effort & Inspection: normal respiratory effort Assessment & Plan Assessment & Plan (1) Family history of breast cancer: Code(s): Z80.3 - Family history of malignant neoplasm of breast Category: Medical Plan: Her [facility] genetic testing does not reveal any genetic mutations. I explained this to the patient. However, I told her that should still continue with doing regular screening programs including mammograms for breast cancer and colonoscopies for colon cancer. Coding Level of Care Code Est Pt Level 2 (20009) Diagnoses Family history of breast cancer Z80.3
--- OUTSIDE RECORDS SUMMARY | 2025-01-18 13:41 | XMS_ITS | Encounter Summary ---
Author Organization [employer] Address [address] [place] [address] Care Team Providers Care Retail Buyer Name Role Phone Jazlyn Addison DO Primary Care Provider + [phone] Encounter Details Date Type Department Care Team ([facility] st Contact Info) Description 01/13/2025 Population Health Risk Score [facility] ([facility]) Department [address] [phone] Provider, Population Health Generic Social History Tobacco Use Types Packs/Day Years Used Date Smoking Tobacco: Never Smokeless Tobacco: Never Alcohol Use Standard Drinks/Week Comments Never 0 (1 standard drink = 0.6 oz pur e alcohol) Depression Answer Date Recorded Patient Health Questionnaire-9 Score 2 04/18/2024 Patient Health Questionnaire-9 Score 2 04/18/2024 Last PHQ-9: Questionnaire Data Not on file 0 04/18/2024 Housing Stability Answer Date Recorded What is your housing situation today? I have housing today, but I am worried about losing housing in the future 04/18/[address] you li ve. Do you have problems with any of the following? None of the above 04/18/2024 Food Insecurity Answer Date Recorded Within the past 12 months, y ou worried that your food would run out before you got money to buy more: Never True 04/18/2024 Within the past 12 months,th e food you bought just didn't last and you didn't have enough money to get more: Never True Transportation Answer Date Recorded In the past 12 months, has l ack of transportation kept you from medical appts, meetings, work or from getting things needed for daily living? No 04/18/2024 Utilities Answer Date Recorded In the past 12 months, has t he electric, gas, oil or water Lorena Gaxiola threatened to shut off services in your home? No 04/18/2024 Depression Answer Date Recorded Patient Health Questionnaire-2 Score 0 04/18/2024 Internet Access Answer Date Recorded Internet Access Q1 Yes 07/04/2024 Internet Access Q2 Not on file 07/04/2024 Comments Unknown Sex and Gender Information Value Date Recorded Sex Assigned at Female 09/01/2022 10:17 AM EDT Legal Sex Female 10:17 AM EDT Gender Identity Female 09/01/2022 10:17 AM EDT Sexual Orientation Straight 09/01/2022 10 :17 AM EDT documented as of this encounter Plan of Treatment Not on file documented as of this encounter Visit Diagnoses Not on filedocumented in this encounter Additional Health Concerns Assessment Noted Time PHQ-9 Depression Total Score: 2 04/18/20 24 10:31 AM EDT documented as of this encounter Care Teams Retail Buyer Relationship Specialty Start Date End Date Jazlyn Addison DO [address] [place] [id number] PCP - General Family Medicine 03/01/12 documented as of this encounter
--- OUTSIDE RECORDS SUMMARY | 2025-01-18 13:41 | XMS_ITS | Clinical Summary ---
Author Organization [employer] Address [address] [place] [address] Care Team Providers Care Cadd Manager Name Role Phone Jazlyn Addison DO Primary Care Provider [phone] Allergies No known active allergies Medications meclizine (Antivert) 25 MG tabletIndications:Mo tion sickness, initial encounter Take 1 tablet by mouth three times daily as needed for dizziness 30 tablet 02/07/20 23 Active glipiZIDE (Glucotrol) 5 MG tablet take 1/2 tablet by oral route every day before dinner 45 tablet 1 08/06/20 23 Active Diclofenac Sodium 1 % gel Apply 2 g topically if needed in the morning, at noon, in the evening, and at bedtime (pain). 150 g 3 08/13/20 23 Active baclofen (Lioresal) 10 MG tablet Take 1 tablet (10 mg) by mouth if needed in the morning, at noon, and at bedtime for muscle spasms. Take one tablet TID PRN 60 tablet 3 01/13/20 24 Active atorvastatin (Lipitor) 20 MG tablet Take 1 tablet (20 mg) by mouth in the morning. 30 tablet 11 01/14/20 24 Active amLODIPine (Norvasc) 2.5 MG tablet TAKE 1 TABLET(2.5 MG) BY MOUTH IN THE MORNING 90 tablet 3 02/16/20 24 Active lisinopril 40 MG tabletIndications:Pr imary hypertension TAKE 1 TABLET BY MOUTH DAILY 90 tablet 3 03/17/20 24 Active Alcohol Swabs (B-D SINGLE USE SWABS REGULAR) pads USED DIRECTED THREE TIMES DAILY 100 each 11 06/10/20 24 Active metFORMIN (Glucophage) 500 MG tabletIndications:Ty pe 2 diabetes mellitus with other specified complication, without long-term current use of insulin ([facility]) TAKE 2 TABLETS BY MOUTH TWICE DAILY WITH MEALS 360 tablet 1 06/21/20 24 Active FreeStyle lancets USE TO TEST TWICE DAILY 100 each 11 07/11/20 24 Active omeprazole (PriLOSEC) [address] capsule take 1 capsule by oral route 2 times every day before a meal 180 capsule 3 09/12/20 24 Active famotidine (Pepcid) 40 MG tabletIndications:Ch ronic gastroesophageal reflux disease Take 1 tablet (40 mg) by mouth at bedtime. 90 tablet 3 09/12/20 24 025 Active amitriptyline (Elavil) 10 MG tablet Take 1 tablet (10 mg) by mouth at bedtime. 30 tablet 3 10/17/20 24 025 Active glucose blood (FREESTYLE LITE) test strip USE TO TEST THREE TIMES DAILY 100 strip 11 11/11/19 25 Active fluticasone (Flonase) 50 MCG/ACT nasal spray Administer 1 spray into each nostril 2 times daily for 14 days. 16 g 11/29/19 25 Active aspirin 81 MG chewable tablet Chew 1 tablet (81 mg) in the morning. 30 tablet 11 01/14/20 24 025 acetaminophen (Tylenol Extra Strength) 500 MG tablet Take 1 tablet (500 mg) by mouth every 6 (six) hours if needed for mild pain. 120 tablet 11/29/19 25 025 Active Problems Problem Noted Date Diagnosed Date Subacute maxillary sinusitis 11/29/2024 Assessment & Plan (11/29/2024 1:22 PM EST): For Augmentin x 7 days. Rest (sleep at least 8 hours a night). Hydrate with plenty of water (avoid caffeine and alcohol). Use saline nose drops to loosen mucus, use Flonase twice daily x 1 week Take Acetaminophen (Tylenol??)/Ibuprofen as needed to reduce fever, headache, body aches or discomfort Gargle with salt water and use throat sprays/lozenges for throat pain. Use heated, humidified air. If you do not have a humidifier, take hot showers. Cover coughs and sneezes using the crook of your elbow. If you have a fever, stay home and away from others (self isolation) until fever-free for 48 hours (temperature should be less than 100??F without medication). 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 Vitamin D deficiency 03/16/2019 Uterine leiomyoma 02/01/2016 Type 2 diabetes mellitus 02/01/2016 Major depression, recurrent, chronic 02/01/2016 Obstructive sleep apnea 02/01/2016 Essential hypertension 02/01/2016 Chronic gastroesophageal reflux disease 02/01/20 Allergic rhinitis 02/01/2016 Resolved Problems Problem Noted Date Diagnosed Date Resolved Date COVID-19 02/03/2023 02/03/2023 Nevus of choroid 06/03/2016 02/03/2023 Encounters Date Type Department Care Team Description 01/13/2025 Population Health Risk Score [facility] () Department [address] [place] [phone] Provider, Population Health Generic 12/26/2024 Refill [facility] [address] [place] [phone] Sharee Diana MD 11/29/2024 1:00 PM EST Office Visit [facility] [address] [place] [phone] Sharee Diana MD Subacute maxillary sinusitis (Primary Dx); Viral URI 11/28/2024 Telephone [facility] [address] [place] [phone] Jazlyn Addison DO 11/24/2024 Telephone [facility] [address] [place] [phone] Jazlyn Addison DO Durable Medical Equipment ([employer] Order Request: Cpap) 11/11/2024 Refill [facility] [address] [place] [phone] Jazlyn Addison DO from Last 3 Months Immunizations Name Administration Dates Next Due Influenza injectable quadriv alent preservative free 08/07/2023,07/29/2022,09/06/2020,09/09 Influenza, seasonal, injecta ble, preservative free 09/12/2024 Pfizer Covid-19 Vaccine 12+ 04/08/2021, Pfizer Covid-19 Vaccine 12+ Bivalent 02/03/2023 Pneumococcal Polysaccharide PPSV23 07/29/2018 Tdap 06/24/2021 Social History Tobacco Use Types Packs/Day Years Used Date Smoking Tobacco: Never Smokeless Tobacco: Never Tobacco Cessation:Counseling Given: Not Answered Alcohol Use Standard Drinks/Week Comments Never 0 [...] t he electric, gas, oil or water company threatened to shut off services in your [...] Orientation Straight 09/01/2022 10 :17 AM EDT Last Filed Vital Signs Vital Sign Reading Time Taken Comments Blood Pressure 125/83 11/29/2024 12:59 PM EST Pulse 80 11/29/2024 12:59 PM EST Temperature 36.3 ??C (97.3 ??F) 11/29/2024 12:[address] Respiratory Rate 18 11/29/2024 12:59 PM EST Oxygen Saturation 96% 11/29/2024 12:59 PM EST Inhaled Oxygen Concentration - - Weight 80.5 kg (177 lb 6.4 oz) 11/29/2024 12:59 PM EST Height 157.5 cm (5' 2 ) 09/12/2024 11:21 AM EST Body Mass Index 32.45 09/12/2024 11:21 AM EST Plan of Treatment Health Maintenance Due Date Last Done Comments CT Colonography 1968 Colonoscopy 1968 FIT 1968 FOBT 1970 Sigmoidoscopy 1968 Diabetes: Foot Exam 01/16/1978 Eye Exam 01/16/1978 Alcohol/Substance Use Screening 1980 Hepatitis A Vaccines (1 of 2 - Risk 2-dose series) 01/16/1987 Hepatitis B Vaccines (1 of 3 - 19+ 3-dose series) 01/16/1987 Zoster Vaccines (1 of 2) 01/16/2018 Pneumococcal Vaccine: 50+ Years (2 of 2 - PCV) 07/29/2019 07/29/2018 COVID-19 Vaccine ( season) 2024 02/03/2023, 11/27/2021, 04/08/2021, Additional history exists Lipid Panel 11/30/2024 11/30/2023, 11/02, 12/14/2020, Additional history exists Diabetes: Hemoglobin A1C 03/12/2025 024, 04/18/2024, 01/13/2024, Additional history exists Depression Screening 04/18/2025 04/18/2024, 04/18/20 24 SDOH Screening 04/18/2025 04/18/2024 Mammogram 09/02/2025 09/02/2024, 110 11/2023, 12/02/2023, Additional history exists Tobacco Screening 09/12/2025 09/12/2024 Cervical Cancer Screening 07/22/2026 HPV/Cotest 07/22/2026 07/22/2021, /, 07/22/2021 Pap Smear 07/22/2026 07/22/2021 Colorectal Cancer Screening 08/26/2026 FIT DNA/Cologuard 08/26/2026 08/26/2023 DTaP/Tdap/Td Vaccines (2 - Td or Tdap) 06/24/2031 06/24/2021 RSV Patients and Patients Aged 60 years or older (1 - 1-dose 75+ series) 01/16/2043 HIV Screening Completed 11/20/2021, 12/03, 11/23/2019 Hepatitis C Screening Completed 11/20/2021 , 12/14/2020, 11/23/2019 Influenza Vaccine Completed 09/12/2024, , 07/29/2022, Additional history exists HIB Vaccines Aged Out No longer eligi ble based on patient's age to complete this topic HPV Vaccines Aged Out No longer eligi ble based on patient's age to complete this topic IPV Vaccines Aged Out No longer eligi ble based on patient's age to complete this topic Meningococcal Vaccine Aged Out No josesito braulio eligible based on patient's age to complete this topic RSV under 20 months Aged Out No longe r eligible based on patient's age to complete this topic Rotavirus Vaccines Aged Out No longer eligible based on patient's age to complete this topic Procedures Procedure Name Priority Date/Time Associated Diagnosis Comments POCT INFLUENZA B (ID NOW RAPID MOLECULAR) Routine 11/29/2024 1:17 PM EST Viral URI POCT INFLUENZA A (ID NOW RAPID MOLECULAR) Routine 11/29/2024 1:17 PM EST Viral URI POCT RAPID STREP A Routine 11/29/2024 1: 17 PM EST Viral URI POCT RAPID COVID ANTIGEN Routine 11/29/2024 1:17 PM EST Viral URI POCT GLYCATED HEMOGLOBIN, TOTAL Routine 09/12/2024 11:28 AM EST Type 2 diabetes mellitus with diabetic microalbuminuria, without long-term current use of insulin (CMS/HCC) BI US BREAST LIMITED LEFT Routine 09/02/2024 11:00 AM EDT LIPID PANEL, STANDARD Routine 11/30/2023 9:12 AM EST Type 2 diabetes mellitus without ophthalmic manifestations (CMS/HCC) LAB COLOGUARD?? COLON CANCER SCREEN Routine 08/26/2023 12:20 PM EDT Healthcare maintenance ZZZ HISTORICAL HEPATITIS C AB W/REFL TO HCV RNA, QN, PCR Routine 11/20/2021 9:09 AM EST HIV 1/2 ANTIGEN/ANTIBODY, FOURTH GENERATION W/RFL Routine 11/20/2021 9:09 AM EST HM PAP/HPV Routine 07/22/2021 from Last 3 Months or Most Recently Relevant to Health Maintenance Results * Influenza B (ID NOW Rapid Molecular) (11/29/2024 1:17 PM EST) Influenza B Negative Negative, Indeterminate [facility] Swab 11/29/2024 1:17 PM EST us Sharee Diana MD POINT OF CARE TEST ENTER /EDIT ORDERABLES Final Result [facility] [address] [place] [phone] * Influenza A (ID NOW Rapid Molecular) (11/29/2024 1:17 PM EST) Influenza A Negative Negative, Indeterminate [facility] Swab 11/29/2024 1:17 PM EST Sharee Diana MD POINT OF CARE TEST ENTER /EDIT ORDERABLES Final Result Performing Organization Address [facility]/ZIP Co de Phone Number [facility] [address] [place] [phone] * POCT Rapid COVID Ag (11/29/2024 1:17 PM EST) Rapid COVID Ag Negative [facility] Swab 11/29/2024 1:17 PM EST Sharee Diana MD POINT OF CARE TEST ENTER /EDIT ORDERABLES Final Result Performing Organization Address [facility] de Phone Number [facility] [address] [place] [phone] * POCT rapid strep A manually resulted (11/29/2024 1:17 PM EST) Pathologist [facility] Rapid Strep A Screen Negative Negative, None Detected [facility] Swab 11/29/2024 1:17 PM EST Sharee Diana MD POINT OF CARE TEST ENTER /EDIT ORDERABLES Final Result Performing Organization Address [facility] de Phone Number [facility] [address] [place] [address] [phone] * (ABNORMAL) POCT HGB A1C (09/12/2024 11:28 AM EST) [facility] Hemoglobin A1C 6.9(A) 4.0 - 6.0 % QC Media Lot # [id number] Lot# Expiration Date Blood 09/12/2024 11:2 8 AM EST Jazlyn Addison DO POINT OF CARE TEST ENTER/NIDIA T ORDERABLES Final Result * BI US Breast Limited Left (09/02/2024 11:00 AM EDT) Anatomical Region Laterality Modality Breast Left Ultrasound 09/02/2024 11:0 0 AM EDT Narrative 09/02/2024 2:42 PM EDT ? [facility] ? [address] ?[place] [address] ? Ultrasound Report ? Signed ? Patient: Rohith,Crucible ?MR#: [id number] ?? 57 ? : 1970 ?Acct:[id number] ? Age/Sex: 54 / F ?ADM Date: 09/02/24 ? Loc: HO.MAMMO ? Attending Dr: Ariadna Cason MD ? Ordering Physician: Ariadna Perales MD ?? Date of Service: 09/02/24 ?? Procedure(s): US breast LT limited mamm only ?? Accession Number(s): [id number] ? cc: Ariadna Perales MD; Jazlyn Addison DO ? EXAMINATION: ?? MM DIAGNOSTIC DIGITAL BREAST TOMOSYNTHESIS, BILATERAL ? CLINICAL INFORMATION: ? Left breast pain. ??Annual right mammography. ? COMPARISON: ?? Mammography: Comparison is made with relevant prior exams. ? TECHNIQUE: ?? Digital breast mammography with tomosynthesis is performed in both the ?? craniocaudal and mediolateral oblique views along with computer-aided ?? detection (CAD). ? Left breast ultrasound Limited. ? FINDINGS: ?? There are scattered areas of fibroglandular density (ACR BI-RADS breast ?? composition Category b). ? There are no significant masses, abnormal calcifications, or other ?? abnormalities. ? Left breast ultrasound: ?? Targeted color Doppler ultrasound scanning from 1-3 o'clock in the area ?? the patient's pain demonstrates a normal-appearing intramammary lymph ?? node at 2:00 13 cm from the nipple. ?? There is a simple cyst at 3:00 6 cm from the nipple measuring 3 x 2 x 3 ?? mm this is likely incidental. Otherwise there is normal fibronodular ?? breast tissue. There is no sonographic abnormality. ? Results are provided to the patient at time of visit by the ?? technologist. ? US/US breast LT limited mamm only ?? IMPRESSION: ?? No mammographic evidence of malignancy. ?? Incidental normal intramammary lymph node and simple cyst at 2:00. No ?? sonographic or mammographic abnormality to account for the patient's ?? left breast pain. Recommend clinical evaluation and follow-up. ? ASSESSMENT: ? BI-RADS BI-RADS 2 - Benign Findings ? RECOMMENDATION: ?? 1 year F/U ?? Clinical follow-up and evaluation. ?? This patient's information was entered into a reminder system with a ?? target due date for their next mammogram. ? Electronically signed by: ??Samia Salazar DO ??09/02/2024 02:39 PM EDT ? Dictated By: ?Samia Salazar DO ? Signed By: ?<Electronically signed by Samia Salazar, DO in OV> ? 09/02/241438 ? DD/ 1100 ? TD/TT: 09/02/24 1128 ? Distributing Clerk: ? Procedure Note Edu Arguello - 09/02/2024 [facility] [address] [place] [address] Ultrasound Report Signed Patient: Ira Newberry#: [id number] 57 : 1970Acct:[id number] Age/Sex: 54 / FADM Date: 09/02/24 Loc: HO.MAMMO Attending Dr: Ariadna Cason MD Ordering Physician: Ariadna Perales MD Date of Service: 09/02/24 Procedure(s): breast LT limited mamm only Accession Number(s): [id number] cc: Ariadna Perales MD; Jazlyn Addison DO EXAMINATION: MM DIAGNOSTIC DIGITAL BREAST TOMOSYNTHESIS, BILATERAL CLINICAL INFORMATION: Left breast pain. Annual right mammography. COMPARISON: Mammography: Comparison is made with relevant prior exams. TECHNIQUE: Digital breast mammography with tomosynthesis is performed in both the craniocaudal and mediolateral oblique views along with computer-aided detection (CAD). Left breast ultrasound Limited. FINDINGS: There are scattered areas of fibroglandular density (ACR BI-RADS breast composition Category b). There are no significant masses, abnormal calcifications, or other abnormalities. Left breast ultrasound: Targeted color Doppler ultrasound scanning from 1-3 o'clock in the area the patient's pain demonstrates a normal-appearing intramammary lymph node at 2:00 13 cm from the nipple. There is a simple cyst at 3:00 6 cm from the nipple measuring 3 x 2 x 3 mm this is likely incidental. Otherwise there is normal fibronodular breast tissue. There is no sonographic abnormality. Results are provided to the patient at time of visit by the technologist. US/US breast LT limited mamm only IMPRESSION: No mammographic evidence of malignancy. Incidental normal intramammary lymph node and simple cyst at 2:00. No sonographic or mammographic abnormality to account for the patient's left breast pain. Recommend clinical evaluation and follow-up. ASSESSMENT: BI-RADS BI-RADS 2 - Benign Findings RECOMMENDATION: 1 year F/U Clinical follow-up and evaluation. This patient's information was entered into a reminder system with a target due date for their next mammogram. Electronically signed by: Samia Salazar DO 09/02/2024 02:39 PM EDT Dictated By: Samia Salazar DO Signed By: <Electronically signed by Samia Salazar DO in OV> 09/02/24 1439 DD/ 1100 TD/TT: 09/02/24 1128 Distributing Clerk: us Ariadna Cason MD IMG US PROCEDURES Nidia priyank Result - Final * (ABNORMAL) Lipid Panel, Standard (11/30/2023 9:12 AM EST) Triglycerides 155(H) <150 mg/dL [facility] Comment:Desirable Triglyceri de: less than 150 mg/dLBorderline High Triglyceride 150-199 mg/dLHigh Triglyceride: 200-499 mg/dLVery High Triglyceride: greater than or equal to 5OO mg/dL Cholesterol 165 <200 mg/dL [facility] Comment:Desirable Cholestero l: less than 200 mg/dLBorderline High Cholesterol: 200-239 mg/dLHigh Cholesterol: greater than 239 mg/dL LDL Cholesterol Calculated 92 <100 mg/dL [facility] Comment:Desirable LDL: less than 100 mg/dLNear Optimal/Above Optimal LDL: 110- 129 mg/dLBorderline High LDL: 130-159 mg/dLHigh LDL: 160-189 mg/dLVery High LDL: greater than or equal to 190 mg/dL HDL Cholesterol 42 >40 mg/dL [facility] Comment:Desirable HDL: great er than 40 mg/dL Note: This HDL assay may give artificially low results in patients with liver disease. Blood Venous blood specimen / Unknown 11/30/2023 9:12 AM EST 11/30/2023 11:18 AM EST us Jazlyn Addison DO LAB BLOOD ORDERABLES Final R esult [facility] [address] [place] [phone] * Cologuard?? colon cancer screening (08/26/2023 12:20 PM EDT) Cologuard Result Negative Negative 09/05/20 6:51 PM EDT [facility] (CLIA #:[id number]) Comment: NEGATIVE TEST RESULT. A negative Cologuard result indicates a low likelihood that a colorectal cancer (CRC) or advanced adenoma (adenomatous polyps with more advanced pre-malignant features) ??is present. The chance that a person with a negative Cologuard test has a colorectal cancer is less than 1 in 1500 (negative predictive value >99.9%) or has an ??advanced adenoma is less than ??5.3% (negative predictive value 94.7%). These data are based on a prospective cross-sectional study of 10,000 individuals at average risk for colorectal cancer who were screened with both Cologuard and colonoscopy. (Archie Topete al, N Engl J Med 2014;370(14):1286- 1297) The normal value (reference range) for this assay is negative. COLOGUARD RE-SCREENING RECOMMENDATION: Periodic colorectal cancer screening is an important part of preventive healthcare for asymptomatic individuals at average risk for colorectal cancer. ??Following a negative Cologuard result, the [place] [employer] and U.S. Multi-Society Task Force screening guidelines recommend a Cologuard re-screening interval of 3 years. References: [place] [employer] Guideline for Colorectal Cancer Screening: https://www.cancer.org/cancer/qzkja-oktlbv-ynjeys/dxrbkolap-olazbvwwo-hjcxyst/ac s-rec ommendations.html.; Jackson DK, Vianey CHO, Khang DockeryK, Colorectal Cancer Screening: Recommendations for Physicians and Patients from the U.S. Multi-Society Task Force on Colorectal Cancer Screening , Am J Gastroenterology 2017; 112:6156-4351. TEST DESCRIPTION: Composite algorithmic analysis of stool DNA-biomarkers with hemoglobin immunoassay. ?? Quantitative values of individual biomarkers are not reportable and are not associated with individual biomarker result reference ranges. Cologuard is intended for colorectal cancer screening of adults of either sex, 45 years or older, who are at average-risk for colorectal cancer (CRC). Cologuard has been approved for use by the U.S. FDA. The performance of Cologuard was established in a cross sectional study of average-risk adults aged 50-84. Cologuard performance in patients ages 45 to 49 years was estimated by sub-group analysis of near-age groups. Colonoscopies performed for a positive result may find as the most clinically significant lesion: colorectal cancer [4.0%], advanced adenoma (including sessile serrated polyps greater than or equal to 1cm diameter) [20%] or non- advanced adenoma [31%]; or no colorectal neoplasia [45%]. These estimates are derived from a prospective cross-sectional screening study of 10,000 individuals at average risk for colorectal cancer who were screened with both Cologuard and colonoscopy. (Archie Topete al, N Engl J Med 2014;370(14):2581-2097.) Cologuard may produce a false negative or false positive result (no colorectal cancer or precancerous polyp present at colonoscopy follow up). A negative Cologuard test result does not guarantee the absence of CRC or advanced adenoma (pre-cancer). The current Cologuard screening interval is every 3 years. ([place] [employer] and U.S. Multi-Society Task Force). Cologuard performance data in a 10,000 patient pivotal study using colonoscopy as the reference method can be accessed at the following location: www.[employer]/results. Additional description of the Cologuard test process, warnings and precautions can be found at www.[employer].com. Stool specimen (specimen) 08/26/2023 12:20 PM EDT 08/29/2023 6:48 AM EDT Jazlyn Addison DO LAB MOLECULAR DIAGNOSTICS OR DERABLES Final Result Performing Organization Address City/[facility]/ZIP Co de Phone Number [facility] (CLIA #:[id number]) [address] [place] [address], * HEPATITIS C AB W/REFL TO HCV RNA, QN, PCR (11/20/2021 9:09 AM EST) HEPATITIS C ANTIBODY NON-REACT WHITNEY NON-REACT WHITNEY [facility] INDEX 0.01 <1.00 [facility] Comment: ?? HCV antibody was non-reactive. There is no laboratory ?? evidence of HCV infection. ?? In most cases, no further action is required. However, if recent HCV exposure is suspected, a test for HCV RNA (test code 21369) is suggested. ?? For additional information please refer to http://education.[employer]/faq/KVI37e0 (This link is being provided for informational/ educational purposes only.) ?? 11/20/2021 9:09 AM EST Jazlyn Addison DO HISTORICAL/NON ORDERABLE LAB S Final Result Performing Organization Address [facility] Co de Phone Number [facility] [address] [place] [address], * HIV 1/2 ANTIGEN/ANTIBODY,FOURTH GENERATION W/RFL (11/20/2021 9:09 AM EST) HIV-1/2 ANTIGEN AND ANTIBODIES, 4TH GENERATION W/ REFLEX NON-REACT WHITNEY NON-REACT [facility] Comment: HIV-1 antigen and HIV-1/HIV-2 antibodies were not detected. There is no laboratory evidence of HIV infection. ?? PLEASE NOTE: This information has been disclosed to you from records whose confidentiality may be protected by state law. ??If your state requires such protection, then the state law prohibits you from making any further disclosure of the information without the specific written consent of the person to whom it pertains, or as otherwise permitted by law. A general authorization for the release of medical or other information is NOT sufficient for this purpose. ? For additional information please refer to http://education.[employer]/faq/PUE120 (This link is being provided for informational/ educational purposes only.) ? The performance of this assay has not been clinically validated in patients less than 2 years old. ?? 11/20/2021 9:09 AM EST Jazlyn Addison DO LAB BLOOD ORDERABLES Final R esult Performing Organization Address City/State/[facility] Co mi Phone Number [facility] [address] * Pap Smear (07/22/2021) Pap Negative for intraephithelial lesion or malignancy Negative for intraephithelial lesion or malignancy, Other HPV Undetected Historical Provider HEALTH MAINTENANCE Final Result from Last 3 Months or Most Recently Relevant to Health Maintenance Insurance [employer] Care Teams Cadd Manager Relationship Specialty Start Date End Date Jazlyn Addison DO [address] [place] [phone] PCP - General Family Medicine 03/01/12
--- OUTSIDE RECORDS SUMMARY | 2025-01-18 13:41 | XMS_ITS | Clinical Summary ---
Author Organization [facility] ity Address [address] [place] [address] Care Team Providers Care Reconnaissance Crewmember Name Role Phone Unavailable Primary Care Provider Unavailabl e Social History Tobacco Use Types Packs/Day Years Used Date Smoking Tobacco: Never Assessed Comments Unknown Sex and Gender Information Value Date Recorded Sex Assigned at Not on file Legal Sex Female 5:43 PM EST Gender Identity Not on file Sexual Orientation Not on file Plan of Treatment Health Maintenance Due Date Last Done Comments Breast Cancer Screening 1970 DTaP,Tdap,and Td Vaccines (1 - Tdap) 01/16/1987 Hepatitis B Vaccines (1 of 3 - 19+ 3-dose series) 01/16/1987 Cervical Cancer Screening: P ap Smear 01/16/1989 Pneumococcal Vaccine: 50+ Ye ars (1 of 1 - PCV) 01/16/2018 Zoster Vaccines (1 of 2) 01/16/2018 COVID-19 Vaccine ( - 2023-2 5 season) 2024 Influenza Vaccine (#1) 2024 HIB Vaccines Aged Out No longer eligi ble based on patient's age to complete this topic HPV Vaccines Aged Out No longer eligi ble based on patient's age to complete this topic Hepatitis A Vaccines Aged Out No long er eligible based on patient's age to complete this topic IPV Vaccines Aged Out No longer eligi ble based on patient's age to complete this topic MMR Vaccines Aged Out No longer eligi ble based on patient's age to complete this topic Meningococcal ACWY Vaccine Aged Out N o longer eligible based on patient's age to complete this topic Meningococcal B Vacine Aged Out No lo nger eligible based on patient's age to complete this topic Pneumococcal Vaccine: Pediat rics (0 to 5 Years) and At-Risk Patients (6 to 64 Years) Aged Out No longer eligible b ased on patient's age to complete this topic RSV Immunization Patients Un temitope 20 months Aged Out No longer eligible b ased on patient's age to complete this topic Varicella Vaccines Aged Out No longer eligible based on patient's age to complete this topic
--- OUTSIDE RECORDS SUMMARY | 2025-01-18 13:41 | XMS_ITS | Encounter Summary ---
Author Organization [facility] Address [address] [place] [address] [address] [place] [address] Care Team Providers Care L D Rn Name Role Phone Jazlyn Addison DO Primary Care Provider + [phone] Encounter Details Date Type Department Care Team (Late st Contact Info) Description 08/07/[address] [facility] [address] [place], [place] [phone] Cristela Villalobos Social History Tobacco Use Types Packs/Day Years Used Date Smoking Tobacco: Never Smokeless Tobacco: Never Alcohol Use Standard Drinks/Week Comments Never 0 (1 standard drink = 0.6 oz pur e alcohol) Comments Unknown Sex and Gender Information Value Date Recorded Sex Assigned at Female 09/01/2022 10:17 AM EDT Legal Sex Female 10:17 AM EDT Gender Identity Female 09/01/2022 10:17 AM EDT Sexual Orientation Straight 09/01/2022 10 :17 AM EDT documented as of this encounter Plan of Treatment Not on file documented as of this encounter Procedures Procedure Name Priority Date/Time Associated Diagnosis Comments PAP/HPV Routine 07/22/2021 documented in this encounter Results * Hm Pap Smear (07/22/2021) Pap Negative for intraephithelial lesion or malignancy Negative for intraephithelial lesion or malignancy, Other HPV Undetected Historical Provider HEALTH MAINTENANCE Final Result documented in this encounter Visit Diagnoses Not on filedocumented in this encounter Care Teams L D Rn Relationship Specialty Start Date End Date Jazlyn Addison DO [address] [place], [place] [phone] PCP - General Family Medicine 03/01/12 documented as of this encounter
--- OUTSIDE RECORDS SUMMARY | 2025-01-18 13:41 | XMS_ITS | Encounter Summary ---
Author Organization [employer] Address [address] [facility] [address] [place] [address] Care Team Providers Care Funeral Workers Name Role Phone Jazlyn Addison DO Primary Care Provider + [phone] Reason for Visit * Reason Comments Med Refill Encounter Details Date Type Department Care Team (Late st Contact Info) Description 12/26/2024 Refill [facility] [address] [place], [place] [phone] Sharee Diana MD [address] [place], [place] [phone] Social History Tobacco Use Types Packs/Day Years [...] documented as of this encounter Care Teams Funeral Workers Relationship Specialty Start Date End Date Jazlyn Addison DO [address] [place] [address] PCP - General Family Medicine 03/01/12 documented as of this encounter
--- OUTSIDE RECORDS SUMMARY | 2025-01-18 13:41 | XMS_ITS | Encounter Summary ---
Author Organization [employer] Address [address] [facility] [address] [place] [address] Care Team Providers Care Zookeeper Name Role Phone Jazlyn Addison DO Primary Care Provider [phone] Encounter Details Date Type Department Care Team ([facility] st Contact Info) Description 11/28/2024 Telephone [facility] [address] [place], [place] [phone] Jazlyn Addison DO [address] [place], [place] [phone] Social History Tobacco Use Types Packs/Day Years [...] documented as of this encounter Care Teams Zookeeper Relationship Specialty Start Date End Date Jazlyn Addison DO [address] [place] [id number] PCP - General Family Medicine 03/01/12 documented as of this encounter
== END 2025-01-18 11:57 | disposition home or self-care (01) ==
LOC: HO.HGS 11:14
PROVIDERS: PCP Family Medicine; Visit Provider Surgery
DX: Z80.3 Family history of malignant neoplasm of breast (principal)
CPT/HCPCS: 99212

== ENCOUNTER → 2025-01-18 11:13 | Outpatient (BNVA) | payer MEDICAID, SELFPAY | PROVIDERS: PCP Family Medicine; Visit Provider Surgery | DX: Z80.3 Family history of malignant neoplasm of breast (principal) | CPT/HCPCS: 99212 ==

== ENCOUNTER 2025-02-03 11:00 | Emergency (ER) | payer MEDICAID, SELFPAY ==
--- NOTE | ~2025-02-03 | XR_ITS ---
EXAMINATION: XR CHEST CLINICAL INFORMATION: chest pain COMPARISON: November 16, 2018. TECHNIQUE: 2 views of the chest were obtained. FINDINGS: No consolidation, pleural effusion or pneumothorax. No hyperinflation. Cardiomediastinal silhouette size is normal. Mild multilevel thoracic spondylosis. Vascular clips right upper quadrant abdomen. Patient's large body habitus. XR/XR chest 2V IMPRESSION: No acute airspace disease. Electronically signed by: Stefan Martinez MD 02/03/2025 11:44 AM EDT
--- NOTE | 2025-02-03 11:10 | ECG_ITS ---
Test Reason : CHEST PAIN/SOB Blood Pressure : */* mmHG Vent. Rate : 72 BPM Atrial Rate : 72 BPM P-R Int : 130 ms QRS Dur : 84 ms QT Int : 392 ms P-R-T Axes : 36 30 0 degrees QTcB Int : 429 ms Normal sinus rhythm Cannot rule out Inferior infarct (cited on or before 22-Aug-2022) Cannot rule out Anterior infarct , age undetermined Abnormal ECG When compared with ECG of 22-Aug-2022 13:20, No significant change was found Referred By: Generic ED Physician Electronically Signed By: FRANCI ZAMORA
[2025-02-03 11:30] VITALS: BP 129/72; PULSE 77; RESP 18; TEMP 36.8; O2SAT 98; BMI 32.5
--- NOTE | 2025-02-03 11:30 | ED_ITS ---
HPI - General Adult General Chief complaint: Chest Pain Stated complaint: Chest Pain X 1 Week Time Seen by Provider: 02/03/25 18:47 Related Data Home Medications ?Medication ?Instructions ?Recorded ?Confirmed acetaminophen 650 mg 650 mg PO Q8H PRN 07/22/21 01/18/25 tablet,extended release (Mapap Arthritis Pain) alcohol swabs (BD Alcohol Swabs) 0 pad topical TID 07/22/21 01/18/25 blood sugar diagnostic (FreeStyle #10 ea 07/22/21 01/18/25 Lite Strips) cholecalciferol (vitamin D3) 50 100 mcg PO DAILY 07/22/21 01/18/25 mcg (2,000 unit) tablet lancets 28 gauge (FreeStyle #100 ea 07/22/21 01/18/25 Lancets) metformin 500 mg tablet 1,000 mg PO BID 07/22/21 01/18/25 omeprazole 20 mg capsule,delayed 20 mg PO BID 07/22/21 01/18/25 release lisinopril 40 mg tablet 40 mg PO DAILY 02/12/22 01/18/25 amlodipine 2.5 mg tablet mg PO DAILY 11/24/24 01/18/25 Previous Rx's ?Medication ?Instructions ?Recorded clotrimazole-betamethasone 1 1 appl topical BID 2 weeks #45 09/04/23 %-0.05 % topical cream grams Allergies Allergy/AdvReac Type Severity Reaction Status Date / Time No Known Allergies Allergy Verified 02/03/25 11:31 none Allergy Unknown Unknown Uncoded 01/18/25 11:58 PMFSH Past Medical History Medical History Family history of breast cancer Skin tag Seborrheic dermatitis Chronic pain of right knee Chronic bilateral low back pain with left-sided sciatica Chronic GERD Major depression, recurrent, chronic Fatty liver Hyperlipidemia HTN (hypertension) Diabetes Surgical History History of cholecystectomy Family History Family History Father Myocardial infarction Maternal Aunt Breast cancer, Onset Age: 24 Social History Social History Alcohol intake: never Patient Tobacco Use Status: Never used Tobacco Smoked in Last 30 Days: No Use of substances other than those prescribed or required for medical reasons: No Advance Directives: No Advance Directives Information Provided: Yes Sexual orientation: Straight/Heterosexual Gender identity: Female Physical Exam ED Vital Signs: Vital Signs - 24 hr 02/03/25 11:30 02/03/25 16:40 02/03/25 20:21 Temperature 98.2 F 98.7 F 97.6 F Pulse Rate 77 78 73 Respiratory Rate 18 18 14 Blood Pressure 129/72 142/70 H 138/76 Pulse Oximetry 98 99 98 Oxygen Delivery Method Room Air Room Air Room Air BMI result Body Mass Index 32.5 Course Course Course Narrative: RME performed by Anaid Wills PA-C. Patient is a 55 year old assigned female at presenting to the emergency department with chest pain. Patient states that she has been having chest pain and feeling much more fatigued. Patient states that certain movements make the pain worse. Detailed physical exam and review of systems are deferred to the department clinician. EKG, labs, imaging, and swabs ordered. Patient placed back in the waiting room pending room availability and results. Medical Decision Making Lab Data 02/03/25 11:59 02/03/25 11:59 Labs: Lab Results 02/03/25 02/03/25 Range/Units 11:59 16:57 WBC 7.4 (4.8-10.8) X10*3/uL RBC 4.42 (4.20-5.50) X10*6/uL Hgb 12.0 (12.0-16.0) g/dl Hct 37.6 (37.0-47.0) % MCV 85.1 (80.0-98.0) fL MCH 27.1 (27.0-33.0) pg MCHC 31.9 (31.0-35.0) g/dl RDW 13.2 (11.0-16.0) % Plt Count 285 (160-400) X10*3/uL MPV 11.0 (9.4-12.3) fL Immature Gran % (Auto) 0.3 (0.0-0.4) % Neut % (Auto) 60.4 (45-73) % Lymph % (Auto) 28.2 (20-40) % [place] % (Auto) 7.8 (2-11) % Eos % (Auto) 2.6 (0-4) % Baso % (Auto) 0.7 (0-2) % Lymph # (Auto) 2.1 (1.2-4.9) X10*3/uL [place] # (Auto) 0.6 (0.1-1.2) X10*3/uL Eos # (Auto) 0.2 (0.0-0.4) X10*3/uL Baso # (Auto) 0.1 (0.0-0.2) X10*3/uL Abs Immat Gran (auto) 0.02 (0.00-0.03) X10*3/uL Absolute Neuts (auto) 4.5 (2.0-8.3) x10*3/uL Absolute Nucleated RBC 0.000 (0.0-0.012) X10*3/uL Nucleated RBC % (auto) 0.0 (0.0-0.2) /100WBC Sodium 141 (135-145) mmol/L Potassium 4.0 (3.3-5.1) mmol/L Chloride 106 (96-108) mmol/L Carbon Dioxide 26 (22-29) mmol/L Anion Gap 13 (12-20) BUN 15 (9-16) mg/dL Creatinine 0.73 (0.5-1.4) mg/dL Estim Creat Clear Calc 83.6 Estimated GFR > 60 Random Glucose 181 H (60-115) mg/dL Calcium 9.2 (8.4-10.2) mg/dL Magnesium 1.6 (1.6-2.6) mg/dL Total Bilirubin 0.3 (0.0-1.0) mg/dL AST 22 (5-31) U/L ALT 36 H (0-31) U/L Alkaline Phosphatase 76 (39-117) U/L Troponin I High Sens < 2.7 < 2.7 (<3.5-17.0) ng/L Total Protein 7.5 (6.5-8.0) g/dL Albumin 4.2 (3.5-5.0) g/dL Influenza Type A (PCR) NEGATIVE (Negative) Influenza Type B (PCR) NEGATIVE (Negative) RSV RNA Qual (PCR) NEGATIVE (Negative) SARS-CoV-2 RNA (RT-PCR) NEGATIVE (Negative) Discharge Plan Discharge Clinical Impression: Chest pain Patient Disposition: Home, Self-Care Instructions: Chest Pain (ED) Prescriptions: No Action metformin 500 mg tablet 1,000 mg PO BID alcohol swabs [BD Alcohol Swabs] Pads, Medicated 0 pad topical TID acetaminophen [Mapap Arthritis Pain] 650 mg tablet extended release 650 mg PO Q8H PRN omeprazole 20 mg capsule,delayed release(DR/EC) 20 mg PO BID cholecalciferol (vitamin D3) 50 mcg (2,000 unit) tablet 100 mcg PO DAILY (DME) lancets [FreeStyle Lancets] 28 gauge misc See Rx Instructions topical DIRECTED Qty: 100 Rx Instructions: As directed (DME) FreeStyle Lite Strips Strip See Rx Instructions Not Applicable TID Qty: 10 Rx Instructions: As directed lisinopril 40 mg tablet 40 mg PO DAILY clotrimazole-betamethasone 1-0.05 % cream 1 appl topical BID 14 Days Qty: 45 1RF amlodipine 2.5 mg tablet PO DAILY Referrals: Saul Main MD [Physician] - 02/06/25 Print Language: Nepalese
[2025-02-03 12:12] LABS: MANUAL DIFF FLAG NO
[2025-02-03 12:15] LABS: Basophils Absolute Auto 0.1 X10*3/uL (0.0-0.2); Basophils Percent Auto 0.7 % (0-2); Eosinophils Absolute Auto 0.2 X10*3/uL (0.0-0.4); Eosinophils Percent Auto 2.6 % (0-4); Hematocrit 37.6 % (37.0-47.0); Imm Gran Abs Auto 0.02 X10*3/uL (0.00-0.03); Imm Gran Pct Auto 0.3 % (0.0-0.4); Lymphocytes Absolute Auto 2.1 X10*3/uL (1.2-4.9); Lymphocytes Percent Auto 28.2 % (20-40); Mean Corpuscular HGB Conc 31.9 g/dl (31.0-35.0); Mean Corpuscular Hemoglobin 27.1 pg (27.0-33.0); Mean Corpuscular Volume 85.1 fL (80.0-98.0); Monocytes Absolute Auto 0.6 X10*3/uL (0.1-1.2); Monocytes Percent Auto 7.8 % (2-11); Neutrophils Absolute Auto 4.5 x10*3/uL (2.0-8.3); Neutrophils Percent Auto 60.4 % (45-73); Platelet Count 285 X10*3/uL (160-400); Red Blood Count 4.42 X10*6/uL (4.20-5.50); Red Cell Distribution Width 13.2 % (11.0-16.0); White Blood Count 7.4 X10*3/uL (4.8-10.8)
[2025-02-03 12:52] LABS: Troponin-I High Sensitivity < 2.7 ng/L (<3.5-17.0)
[2025-02-03 13:00] LABS: Influenza A PCR NEGATIVE (Negative); Influenza B PCR NEGATIVE (Negative); Resp Syncy Virus RNA Qual PCR NEGATIVE (Negative); SARS COV2 PCR INHOUSE NEGATIVE (Negative)
[2025-02-03 13:02] LABS: Alanine Aminotransferase 36 U/L (0-31); Albumin Level 4.2 g/dL (3.5-5.0); Alkaline Phosphatase 76 U/L (39-117); Anion Gap 13 (12-20); Aspartate Amino Transferase 22 U/L (5-31); Bilirubin Total 0.3 mg/dL (0.0-1.0); Blood Urea Nitrogen 15 mg/dL (9-16); Calcium 9.2 mg/dL (8.4-10.2); Carbon Dioxide 26 mmol/L (22-29); Chloride 106 mmol/L (96-108); Creatinine Clr Calc Pharmacy 83.6; Estimated Glomerular Filt Rate > 60; Glucose Random 181 mg/dL (60-115); Magnesium 1.6 mg/dL (1.6-2.6); Sodium 141 mmol/L (135-145); Total Protein 7.5 g/dL (6.5-8.0)
[2025-02-03 16:40] VITALS: BP 142/70; PULSE 78; RESP 18; TEMP 37.1; O2SAT 99
[2025-02-03 17:28] LABS: Troponin-I High Sensitivity < 2.7 ng/L (<3.5-17.0)
--- OUTSIDE RECORDS SUMMARY | 2025-02-03 19:05 | XMS_ITS | Clinical Summary ---
Author Organization [employer] Address [address] [facility] [address] [place] [address] Care Team Providers Care Precision Lens Polisher Name Role Phone Jazlyn Addison DO Primary Care Provider [phone] Allergies No known active allergies Medications meclizine [...] complication, without long-term current use of insulin ([facility]) TAKE 2 TABLETS BY MOUTH TWICE DAILY [...] morning. 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 Encounters Date Type Department Care Team Description 02/03/2025 Orders Only [facility] External Provider, [facility] 01/13/2025 Population Health Risk Score [facility] Department [address] [place] [address] [phone] Provider, Population Health Generic 12/26/2024 [facility] [address] [address] Sharee Diana MD 11/29/2024 1:00 PM EST [facility] [address] [address] Sharee Diana MD Subacute maxillary sinusitis (Primary Dx); Viral URI 11/28/2024 Telephone [facility] [address] [place] [phone] Jazlyn Addison DO 11/24/2024 Telephone [facility] [address] [place] [phone] Jazlyn Addison DO Durable Medical Equipment ([employer] Order Request: Cpap) 11/11/2024 Refill [facility] [address] [place] [phone] Jazlyn Addison DO from Last 3 Months [...] SDOH Screening 04/18/2025 04/18/2024 Mammogram 09/02/2025 09/02/2024, 1111/2023, 12/02/2023, Additional history exists Tobacco Screening 09/12/2025 09/12/2024 Cervical Cancer Screening 07/22/2026 HPV/Cotest 07/22/2026 07/22/2021, 07/04, 07/22/2021 Pap Smear 07/22/2026 07/22/2021 Colorectal Cancer [...] Procedure Name Priority Date/Time Associated Diagnosis Comments HIGH SENSITIVITY TROPONIN I Routine 02/03/2025 4:57 PM EDT MAGNESIUM Routine 02/03/2025 11:59 AM EDT COMPREHENSIVE METABOLIC PANEL Routine 02/03/2025 11:59 AM EDT HIGH SENSITIVITY TROPONIN I Routine 02/03/2025 11:59 AM EDT CBC WITH AUTO DIFFERENTIAL Routine 02/03/2025 11:59 AM EDT SARS COV2/INFLUENZA A/B AND RSV RNA QL NAAT Routine 02/03/2025 11:59 AM EDT XR CHEST 2 VIEWS Routine 02/03/2025 11:3 1 AM EDT POCT INFLUENZA B (ID NOW RAPID MOLECULAR) [...] Recently Relevant to Health Maintenance Results * High Sensitivity Troponin I (02/03/2025 4:57 PM EDT) Only the most recent of2 resultswithin the time period is included. TROPONIN I HIGH SENSITIVITY <2.7 <3.5 - 17.0 ng/L [facility] Comment:The Wiggins high sens itivity Troponin-I results should beused in conjunction with other diagnostic information suchas ECG, clinical observations and information, and patientsymptoms to aid in the diagnosis of NM. 02/03/2025 4:57 PM EDT 02/03/2025 5:01 PM EDT us Generic External Data Provider LAB BLOOD ORDERAB LES Final Result [facility] [address] [place] [phone] * SARS-CoV-2 RNA, Influenza A/B, and RSV RNA, Ql NAAT (02/03/2025 11:59 AM EDT) Pathologist [facility] Influenza A PCR NEGATIVE Negative [facility] Influenza B PCR NEGATIVE Negative [facility] Resp Syncy Virus RNA Qual PCR NEGATIVE Negative [facility] SARS COV2 PCR NEGATIVE Negative [facility] Comment:All test results mus t be correlated with clinical findings.Negative results do not preclude SARS-CoV2, influenza Avirus, influenza B virus and/or RSV infectionand should not be used as the sole basis for treatment orother patient management decisions. Negative results must becombined with clinical observations, patient history, andepidemiological information.This test has not been evaluated for monitoring treatment ofinfection.This test has been authorized by the FDA under an EmergencyUse Authorization (EUA) for use by authorized laboratories.Testing performed on the [employer] GeneXpert utilizingreal-time RT-PCR.All SARS CoV2 and positive influenza A/B results arereported to [facility]. 02/03/2025 11:5 9 AM EDT 02/03/2025 12:10 PM EDT us Generic External Data Provider LAB MICROBIOLOGY - GENERAL ORDERABLES Final Result [facility] [address] [place] [address] [phone] * CBC auto differential (02/03/2025 11:59 AM EDT) White Blood Count 7.4 4.8 - 10.8 X10*3/uL [facility] Red Blood Count 4.42 4.20 - 5.50 X10*6/uL [facility] Hemoglobin 12.0 12.0 - 16.0 g/dl [facility] Hematocrit 37.6 37.0 - 47.0 % [facility] Mean Corpuscular Volume 85.1 80.0 - 98.0 fL [facility] Mean Corpuscular Hemoglobin 27.1 27.0 - 33.0 pg [facility] Mean Corpuscular HGB Conc 31.9 31.0 - 35.0 g/dl [facility] Red Cell Distribution Width 13.2 11.0 - 16.0 % [facility] Platelet Count 285 160 - 400 X10*3/uL [facility] Mean Platelet Volume 11.0 9.4 - 12.3 fL [facility] Neutrophils Percent Auto 60.4 45 - 73 % [facility] Imm Gran Pct Auto 0.3 0.0 - 0.4 % [facility] Lymphocytes Percent Auto 28.2 20 - 40 % [facility] Monocytes Percent Auto 7.8 2 - 11 % [facility] Eosinophils Percent Auto 2.6 0 - 4 % [facility] Basophils Percent Auto 0.7 0 - 2 % [facility] NRBC Pct Auto 0.0 0.0 - 0.2 /100WBC [facility] Neutrophils Absolute Auto 4.5 2.0 - 8.3 x10*3/uL [facility] Imm Gran Abs Auto 0.02 0.00 - 0.03 X10*3/uL [facility] Lymphocytes Absolute Auto 2.1 1.2 - 4.9 X10*3/uL [facility] Monocytes Absolute Auto 0.6 0.1 - 1.2 X10*3/uL [facility] Eosinophils Absolute Auto 0.2 0.0 - 0.4 X10*3/uL [facility] Basophils Absolute Auto 0.1 0.0 - 0.2 X10*3/uL [facility] NRBC Abs Auto 0.000 0.0 - 0.012 X10*3/uL [facility] 02/03/2025 11:5 9 AM EDT 02/03/2025 12:10 PM EDT Generic External Data Provider LAB BLOOD ORDERAB LES Final Result Performing Organization Address [facility]/ZIP Co de Phone Number [facility] [address] [place] [phone] * Magnesium (02/03/2025 11:59 AM EDT) Pathologist [facility] Magnesium 1.6 1.6 - 2.6 mg/dL [facility] 02/03/2025 11:5 9 AM EDT 02/03/2025 12:10 PM EDT Vitasol External Data Provider LAB BLOOD ORDERAB LES Final Result Performing Organization Address [facility] Co de Phone Number [facility] [address] [place] [phone] * (ABNORMAL) Comprehensive Metabolic Panel (02/03/2025 11:59 AM EDT) Pathologist [facility] Sodium 141 135 - 145 mmol/L [facility] Potassium 4.0 3.3 - 5.1 mmol/L [facility] Chloride 106 96 - 108 mmol/L [facility] Carbon Dioxide 26 22 - 29 mmol/L [facility] Anion Gap 13 12 - 20 [facility] Urea Nitrogen (BUN) 15 9 - 16 mg/dL [facility] Creatinine, Serum 0.73 0.5 - 1.4 mg/dL [facility] Creatinine Clr Calc Pharmacy 83.6 [facility] Comment:Provided height and weight: 157.48 cm,80.6 kg.eGFR (calculated from the MDRD study equation) and eCrCl(calculated from the Cockcroft-Gault equation) are based ondifferent parameters and may not yield comparable results.If eCrCl result is absurd, please check patient'sheight/weight. Estimated Glomerular Filt Rate >60 [facility] Comment:Chronic Kidney Disea se: Estimated GFR < 60 mL/min/1.33y8Lmwtnu Kidney Disease: Estimated GFR < 15 mL/min/1.73m2 Glucose 181(H) 60 - 115 mg/dL [facility] Calcium 9.2 8.4 - 10.2 mg/dL [facility] Bilirubin, Total 0.3 0.0 - 1.0 mg/dL [facility] Aspartate Amino Transferase 22 5 - 31 U/L [facility] Alanine Aminotransferase 36(H) 0 - 31 U/L [facility] Total Protein 7.5 6.5 - 8.0 g/dL [facility] Albumin Level 4.2 3.5 - 5.0 g/dL [facility] Alkaline Phosphatase 76 39 - 117 U/L [facility] 02/03/2025 11:5 9 AM EDT 02/03/2025 12:10 PM EDT us Generic External Data Provider LAB BLOOD ORDERAB LES Final Result Performing Organization Address City/State/[facility] Co de Phone Number [facility] [address] [place] [phone] * XR Chest 2 Views (02/03/2025 11:31 AM EDT) Anatomical Region Laterality Modality Chest Radiographic Radha ging 02/03/2025 11:3 1 AM EDT Narrative 02/03/2025 11:47 AM EDT ? [facility] ?[address] ?[place] [address] ?XRay Report ? Signed ? Patient: Rohith,Ira ?MR#: [id number] ?? 57 ? : 1970 ?Acct:[id number] ? Age/Sex: 55 / F ?ADM Date: 04/04/25 ? Loc: HO.ED ? Attending Dr: ? Ordering Physician: Anaid Wills ?? Date of Service: 02/03/25 ?? Procedure(s): XR chest 2V ?? Accession Number(s): [id number] ? cc: Anaid Wills; Jazlyn Addison DO ? EXAMINATION: ?? XR CHEST ? CLINICAL INFORMATION: ?? chest pain ? COMPARISON: ?? November 16, 2018. ? TECHNIQUE: ?? 2 views of the chest were obtained. ? FINDINGS: ?? No consolidation, pleural effusion or pneumothorax. ?? No hyperinflation. ?? Cardiomediastinal silhouette size is normal. ?? Mild multilevel thoracic spondylosis. ?? Vascular clips right upper quadrant abdomen. ?? Patient's large body habitus. ? XR/XR chest 2V ?? IMPRESSION: ?? No acute airspace disease. ? Electronically signed by: ??Stefan Martinez MD ??02/03/2025 11:44 AM ?? EDT RP ? Dictated By: ?Stefan Gonsales MD ? Signed By: ?<Electronically signed by Stefan Chapman MD in OV> ? 02/03/25 1144 ? DD/ 1131 ? TD/TT: 02/03/25 1140 ? Weather Reporter: ? Procedure Note Edu Arguello - 02/03/2025 [place] [address] XRay Report Signed Patient: Ira Newberry#: [id number] 57 : 1970Acct:[id number] Age/Sex: 55 / FADM Date: 02/03/25 Loc: HO.ED Attending Dr: Ordering Physician: Anaid Wills Date of Service: 02/03/25 Procedure(s): XR chest 2V Accession Number(s): [id number] cc: Anaid Wills; Jazlyn Addison DO EXAMINATION: XR CHEST CLINICAL INFORMATION: chest pain COMPARISON: November 16, 2018. TECHNIQUE: 2 views of the chest were obtained. FINDINGS: No consolidation, pleural effusion or pneumothorax. No hyperinflation. Cardiomediastinal silhouette size is normal. Mild multilevel thoracic spondylosis. Vascular clips right upper quadrant abdomen. Patient's large body habitus. XR/XR chest 2V IMPRESSION: No acute airspace disease. Electronically signed by: Stefan Martinez MD 02/03/2025 11:44 AM EDT RP Dictated By: Stefan Gonsales MD Signed By: <Electronically signed by Stefan Chapman MDin OV> 02/03/25 1144 DD/ 1131 TD/TT: 02/03/25 1140 Weather Reporter: Result [facility] External Provider IMG XR PROCEDURES Final Result * Influenza B (ID NOW Rapid Molecular) (11/29/2024 1:17 PM EST) [facility] Influenza B Negative Negative, Indeterminate [facility] Swab 11/29/2024 1:17 PM EST Result [facility] Sharee Diana MD POINT OF CARE TEST ENTER /EDIT ORDERABLES Final Result Performing Organization Address [facility] Co de Phone Number [facility] [address] [place] [phone] * Influenza A (ID NOW Rapid Molecular) (11/29/2024 1:17 PM EST) [facility] Influenza A Negative Negative, Indeterminate [facility] Swab 11/29/2024 1:17 PM EST Sharee Diana MD POINT OF CARE TEST ENTER /EDIT ORDERABLES Final Result Performing Organization Address [facility] Co de Phone Number [facility] [address] [place] [phone] * POCT Rapid COVID Ag (11/29/2024 1:17 PM EST) Pathologist [facility] Rapid COVID Ag Negative [facility] Swab 11/29/2024 1:17 PM EST Sharee Diana MD POINT OF CARE TEST ENTER /EDIT ORDERABLES Final Result Performing Organization Address [facility] Co de Phone Number [facility] [address] [place] [phone] * POCT rapid strep A manually resulted (11/29/2024 1:17 PM EST) Rapid Strep A Screen Negative Negative, None Detected [facility] Swab 11/29/2024 1:17 PM EST Sharee Diana MD POINT OF CARE TEST ENTER /EDIT ORDERABLES Final Result Performing Organization Address [facility] de Phone Number [facility] [address] [place] [phone] [phone] * (ABNORMAL) POCT HGB A1C (09/12/2024 11:28 AM EST) Hemoglobin A1C 6.9(A) 4.0 - 6.0 % QC Media Lot # [id number] Lot# Expiration Date Blood 09/12/2024 11:2 8 AM EST Jazlyn Addison DO POINT OF CARE TEST ENTER/NIDIA T ORDERABLES Final Result * BI US Breast Limited Left (09/02/2024 11:00 AM EDT) Anatomical Region Laterality Modality Breast Left Ultrasound 09/02/2024 11:0 0 AM EDT Narrative 09/02/2024 2:42 PM EDT ? [facility] ? [address] ?[place] [address] ? Ultrasound Report ? Signed ? Patient: Rohith,Youngwood ?MR#: [id number] ?? 57 ? : 1970 ?Acct:[id number] ? Age/Sex: 54 / F ?ADM Date: 09/02/24 ? Loc: HO.MAMMO ? Attending Dr: Ariadna Cason MD ? Ordering Physician: Ariadna Perales MD ?? Date of Service: 09/02/24 ?? Procedure(s): US breast LT limited mamm only ?? Accession Number(s): [id number] ? cc: Ariadna Perales MD; Jazlyn Addison [...] of visit by the ?? technologist. ? US/ breast LT limited mamm only ?? IMPRESSION: [...] ? Signed By: ?<Electronically signed by Samia Salazra, DO in OV> ? 09/02/24 1439 ? DD/ 1100 ? TD/TT: 09/02/24 1128 ? Weather Reporter: ? Procedure Note Donothajainterpreter, Image - 09/02/2024 [facility] [address] [place], [place] [address] Ultrasound Report Signed Patient: Ira NewberryMR#: [id number] 57 : 1970Acct:[id number] Age/Sex: 54 / FADM Date: 09/02/24 Loc: HO.MAMMO Attending Dr: Ariadna Cason MD Ordering Physician: Ariadna Perales MD Date of Service: 09/02/24 Procedure(s): US breast LT limited mamm only Accession Number(s): [id number] cc: Ariadna Perales MD; Jazlyn Addison DO [...] 09/02/24 1439 DD/ 1100 TD/TT: 09/02/24 1128 Weather Reporter: us Ariadna Cason MD IMG US PROCEDURES Nidia priyank Result - Final * (ABNORMAL) Lipid Panel, Standard (11/30/2023 9:12 AM EST) Triglycerides 155(H) <150 mg/dL [facility] Comment:Desirable Triglyceri de: less than 150 mg/dLBorderline High Triglyceride 150-199 mg/dLHigh Triglyceride: 200-499 mg/dLVery High Triglyceride: greater than or equal to 5OO mg/dL Cholesterol 165 <200 mg/dL [facility] Comment:Desirable Cholestero l: less than 200 mg/dLBorderline High Cholesterol: 200-239 mg/dLHigh Cholesterol: greater than 239 mg/dL LDL Cholesterol Calculated 92 <100 mg/dL [facility] Comment:Desirable LDL: less than 100 mg/dLNear Optimal/Above Optimal LDL: 110- 129 mg/dLBorderline High LDL: 130-159 mg/dLHigh LDL: 160-189 mg/dLVery High LDL: greater than or equal to 190 mg/dL HDL Cholesterol 42 >40 mg/dL [facility] Comment:Desirable HDL: great er than 40 mg/dL Note: This HDL assay may give artificially low results in patients with liver disease. Blood Venous blood specimen / Unknown 11/30/2023 9:12 AM EST 11/30/2023 11:18 AM EST Jazlyn Addison DO LAB BLOOD ORDERABLES Final R esult [facility] [address] [place] [address] [phone] * Cologuard?? colon cancer screening (08/26/2023 12:20 PM EDT) Cologuard Result Negative Negative 09/05/20 6:51 PM EDT [facility] (CLIA #:[id number]) Comment: NEGATIVE TEST RESULT. A negative Cologuard [...] screened with both Cologuard and colonoscopy. (Archie Galindo et al, N Engl J Med 2014;370(14):1286- 1297) The normal value (reference range) for this assay is negative. COLOGUARD RE-SCREENING RECOMMENDATION: Periodic colorectal cancer screening is an important part of preventive healthcare for asymptomatic individuals at average risk for colorectal cancer. ??Following a negative Cologuard result, the [place] [employer] and U.S. Multi-Society Task Force screening guidelines recommend a Cologuard re-screening interval of 3 years. References: [place] [employer] Guideline for Colorectal Cancer Screening: https://www.cancer.org/cancer/oqgtu-bkkcct-yyuzjm/aqmffbpej-wdmuczpxu-krzlzqb/ac s-rec ommendations.html.; Jackson CARMEN, Vianey CR, Khang DockeryK, Colorectal Cancer Screening: Recommendations for Physicians and Patients from the U.S. Multi-Society Task Force on Colorectal Cancer Screening , Am J Gastroenterology 2017; 112:1229-2058. TEST DESCRIPTION: Composite algorithmic analysis of stool [...] (Archie Topete al, N Engl J Med 2014;370(14):0366-3879.) Cologuard may produce a false negative or false positive result (no colorectal cancer or precancerous polyp present at colonoscopy follow up). A negative Cologuard test result does not guarantee the absence of CRC or advanced adenoma (pre-cancer). The current Cologuard screening interval is every 3 years. ([place] [employer] and U.S. Multi-Society Task Force). Cologuard performance data in a 10,000 patient pivotal study using colonoscopy as the reference method can be accessed at the following location: www.[employer]results. Additional description of the Cologuard test process, warnings and precautions can be found at www.[employer].com. Stool specimen (specimen) 08/26/2023 12:20 PM EDT 08/29/2023 6:48 AM EDT Jazlyn Addison DO LAB MOLECULAR DIAGNOSTICS OR DERABLES Final Result [facility] (CLIA #:[id number]) [address] [place] [address], * HEPATITIS C AB W/REFL TO HCV RNA, QN, PCR (11/20/2021 9:09 AM EST) HEPATITIS C ANTIBODY NON-REACT WHITNEY NON-REACT WHITNEY [facility] INDEX 0.01 <1.00 [facility] Comment: ?? HCV antibody was non-reactive. There is no laboratory ?? evidence of HCV infection. ?? In most cases, no further action is required. However, if recent HCV exposure is suspected, a test for HCV RNA (test code 57830) is suggested. ?? For additional information please refer to http://[employer]/faq/XNV90z1 (This link is being provided for informational/ educational purposes only.) ?? 11/20/2021 9:09 AM EST Jazlyn Addison DO HISTORICAL/NON ORDERABLE LAB S Final Result [facility] [address] * HIV 1/2 ANTIGEN/ANTIBODY,FOURTH GENERATION W/RFL (11/20/2021 9:09 AM EST) HIV-1/2 ANTIGEN AND ANTIBODIES, 4TH GENERATION W/ REFLEX NON-REACT WHITNEY NON-REACT WHITNEY [facility] Comment: HIV-1 antigen and HIV-1/HIV-2 [...] ? For additional information please refer to http://[employer]/faq/VDF204 (This link is being provided for informational/ educational purposes only.) ? The performance of this assay has not been clinically validated in patients less than 2 years old. ?? 11/20/2021 9:09 AM EST Jazlyn Addison DO LAB BLOOD ORDERABLES Final R esult [facility] [address] * Pap Smear (07/22/2021) Pap Negative for intraephithelial lesion or malignancy Negative for intraephithelial lesion or malignancy, Other HPV Undetected Historical Provider HEALTH MAINTENANCE Final Result from Last 3 Months or Most Recently Relevant to Health Maintenance [place] [address] [place] [address] C3 HSN FULL Care Teams Precision Lens Polisher Relationship Specialty Start Date End Date Jazlyn Addison DO [address] [place] [address] PCP - General Family Medicine 03/01/12
--- OUTSIDE RECORDS SUMMARY | 2025-02-03 19:05 | XMS_ITS | Clinical Summary ---
Author Organization [facility] Address [address] [place] [address] Care Team Providers Care Silk Printer Name Role Phone Unavailable Primary Care Provider [...] - 2023-2 5 season) 2024 Influenza Vaccine (Season Ended) 2025 HIB Vaccines Aged Out No longer eligi [...]
--- OUTSIDE RECORDS SUMMARY | 2025-02-03 19:05 | XMS_ITS | Encounter Summary ---
Author Organization [employer] Address [address] [facility] 7[address] [place] [address] Care Team Providers Care Novelty Twister Operator Name Role Phone Jazlyn Addison DO Primary Care Provider [phone] Encounter Details Date Type Department Care Team ([facility] st Contact Info) Description 11/28/2024 Telephone [facility] [address] [place], [place] [phone] Jazlyn Addison DO [address] [place], [place] [phone] Social History Tobacco Use Types Packs/Day Years [...] documented as of this encounter Care Teams Novelty Twister Operator Relationship Specialty Start Date End Date Jazlyn Addison DO [address] [place] [phone] PCP - General Family Medicine 03/01/12 documented as of this encounter
--- OUTSIDE RECORDS SUMMARY | 2025-02-03 19:05 | XMS_ITS | Encounter Summary ---
Author Organization [facility] Address [address] [place] [address] 7[address] [place] [address] Care Team Providers Care Cmo & President Name Role Phone Jazlyn Addison DO Primary Care Provider + [phone] Encounter Details Date Type Department Care Team (Late st Contact Info) Description 08/07/2023 Abstract [facility] [address] [place], [place] [phone] Cristela Villalobos Social History Tobacco Use Types [...] on filedocumented in this encounter Care Teams Cmo & President Relationship Specialty Start Date End Date Jazlyn Addison DO [address] [place], [place] [phone] PCP - General Family Medicine 03/01/12 documented as of this encounter
--- OUTSIDE RECORDS SUMMARY | 2025-02-03 19:05 | XMS_ITS | Encounter Summary ---
Author Organization [employer] Address [address] [facility] [address] [place] [address] Care Team Providers Care Slip Injector And Applicator Name Role Phone Jazlyn Addison DO Primary Care Provider [phone] Encounter Details Date Type Department Care Team (Late st Contact Info) Description 02/03/2025 Orders Only [facility] External Provider, [facility] Social History Tobacco Use Types Packs/Day Years [...] TROPONIN I Routine 02/03/2025 4:57 PM EDT HIGH SENSITIVITY TROPONIN I Routine 02/03/2025 11:59 AM EDT SARS COV2/INFLUENZA A/B AND RSV RNA QL NAAT Routine 02/03/2025 11:59 AM EDT CBC WITH AUTO DIFFERENTIAL Routine 02/03/2025 11:59 AM EDT MAGNESIUM Routine 02/03/2025 11:59 AM EDT COMPREHENSIVE METABOLIC PANEL Routine 02/03/2025 11:59 AM EDT XR CHEST 2 VIEWS Routine 02/03/2025 11:3 1 AM EDT documented in this encounter Results * High Sensitivity Troponin I (02/03/2025 4:57 PM EDT) Pathologist [facility] [place] TROPONIN I HIGH SENSITIVITY <2.7 <3.5 - 17.0 ng/L [facility] Comment:The Wiggins high sens itivity Troponin-I results should beused in conjunction with other diagnostic information suchas ECG, clinical observations and information, and patientsymptoms to aid in the diagnosis of IA. 02/03/2025 4:57 PM EDT 02/03/2025 5:01 PM EDT us Generic External Data Provider LAB BLOOD ORDERAB LES Final Result Performing Organization Address City/[facility]/ZIP Co de Phone Number [facility] [address] [place] [address] [phone] * Magnesium (02/03/2025 11:59 AM EDT) Magnesium 1.6 1.6 - 2.6 mg/dL [facility] 02/03/2025 11:5 9 AM EDT 02/03/2025 12:10 PM EDT Generic External Data Provider LAB BLOOD ORDERAB LES Final Result Performing Organization Address [facility] Co de Phone Number [facility] [address] [place] [phone] * (ABNORMAL) Comprehensive Metabolic Panel (02/03/2025 11:59 AM EDT) Pathologist [facility] [place] Sodium 141 135 - 145 mmol/L [facility] Potassium 4.0 3.3 - 5.1 mmol/L [facility] Chloride 106 96 - 108 mmol/L [facility] Carbon Dioxide 26 22 - 29 mmol/L [facility] Anion Gap 13 12 - 20 [facility] Urea Nitrogen (BUN) 15 9 - 16 mg/dL [facility] Creatinine, Serum 0.73 0.5 - 1.4 mg/dL [facility] Creatinine Clr Calc Pharmacy 83.6 [facility] Comment:Provided height and weight: 157.48 cm,80.6 kg.eGFR (calculated from the MDRD study equation) and eCrCl(calculated from the Cockcroft-Gault equation) are based ondifferent parameters and may not yield comparable results.If eCrCl result is absurd, please check patient'sheight/weight. Estimated Glomerular Filt Rate >60 [facility] Comment:Chronic Kidney Disea se: Estimated GFR < 60 mL/min/1.86d6Vgsvta Kidney Disease: Estimated GFR < 15 mL/min/1.73m2 Glucose 181(H) 60 - 115 mg/dL [facility] Calcium 9.2 8.4 - 10.2 mg/dL [facility] Bilirubin, Total 0.3 0.0 - 1.0 mg/dL [facility] Aspartate Amino Transferase 22 5 - 31 U/L [facility] Alanine Aminotransferase 36(H) 0 - 31 U/L [facility] Total Protein 7.5 6.5 - 8.0 g/dL [facility] Albumin Level 4.2 3.5 - 5.0 g/dL [facility] Alkaline Phosphatase 76 39 - 117 U/L [facility] 02/03/2025 11:5 9 AM EDT 02/03/2025 12:10 PM EDT us Generic External Data Provider LAB BLOOD ORDERAB LES Final Result [facility] [address] [place] [address] [phone] * SARS-CoV-2 RNA, Influenza A/B, and RSV RNA, Ql NAAT (02/03/2025 11:59 AM EDT) Influenza A PCR NEGATIVE Negative [facility] Influenza B PCR NEGATIVE Negative [facility] Resp Syncy Virus RNA Qual PCR NEGATIVE Negative [facility] SARS COV2 PCR NEGATIVE Negative [facility] Comment:All test results mus t be [...] use by authorized laboratories.Testing performed on the Simmr GeneXpert utilizingreal-time RT-PCR.All SARS CoV2 and positive influenza A/B results arereported to [facility]. 02/03/2025 11:5 9 AM EDT 02/03/2025 12:10 PM EDT Generic External Data Provider LAB MICROBIOLOGY - GENERAL ORDERABLES Final Result Performing Organization Address [facility] de Phone Number [facility] [address] [place] [phone] * High Sensitivity Troponin I (02/03/2025 11:59 AM EDT) [facility] TROPONIN I HIGH SENSITIVITY <2.7 <3.5 - 17.0 ng/L [facility] Comment:The Wiggins high sens itivity Troponin-I results should beused in conjunction with other diagnostic information suchas ECG, clinical observations and information, and patientsymptoms to aid in the diagnosis of IA. 02/03/2025 11:5 9 AM EDT 02/03/2025 12:10 PM EDT Generic External Data Provider LAB BLOOD ORDERAB LES Final Result Performing Organization Address [facility] de Phone Number [facility] [address] [place] [phone] * CBC auto differential (02/03/2025 11:59 AM EDT) [facility] White Blood Count 7.4 4.8 - 10.8 X10*3/uL [facility] Red Blood Count 4.42 4.20 - 5.50 X10*6/uL [facility] Hemoglobin 12.0 12.0 - 16.0 g/dl [facility] Hematocrit 37.6 37.0 - 47.0 % [facility] Mean Corpuscular Volume 85.1 80.0 - 98.0 fL [facility] Mean Corpuscular Hemoglobin 27.1 27.0 - 33.0 pg [facility] Mean Corpuscular HGB Conc 31.9 31.0 - 35.0 g/dl [facility] Red Cell Distribution Width 13.2 11.0 - 16.0 % [facility] Platelet Count 285 160 - 400 X10*3/uL [facility] Mean Platelet Volume 11.0 9.4 - 12.3 fL [facility] Neutrophils Percent Auto 60.4 45 - 73 % [facility] Imm Gran Pct Auto 0.3 0.0 - 0.4 % [facility] Lymphocytes Percent Auto 28.2 20 - 40 % [facility] Monocytes Percent Auto 7.8 2 - 11 % [facility] Eosinophils Percent Auto 2.6 0 - 4 % [facility] Basophils Percent Auto 0.7 0 - 2 % [facility] NRBC Pct Auto 0.0 0.0 - 0.2 /100WBC [facility] Neutrophils Absolute Auto 4.5 2.0 - 8.3 x10*3/uL [facility] Imm Gran Abs Auto 0.02 0.00 - 0.03 X10*3/uL [facility] Lymphocytes Absolute Auto 2.1 1.2 - 4.9 X10*3/uL [facility] Monocytes Absolute Auto 0.6 0.1 - 1.2 X10*3/uL [facility] Eosinophils Absolute Auto 0.2 0.0 - 0.4 X10*3/uL [facility] Basophils Absolute Auto 0.1 0.0 - 0.2 X10*3/uL [facility] NRBC Abs Auto 0.000 0.0 - 0.012 X10*3/uL [facility] 02/03/2025 11:5 9 AM EDT 02/03/2025 12:10 PM EDT us Generic External Data Provider LAB BLOOD ORDERAB LES Final Result [facility] [address] [place] [phone] * XR Chest 2 Views (02/03/2025 11:31 AM EDT) Anatomical Region Laterality Modality Chest Radiographic Radha ging 02/03/2025 11:3 1 AM EDT Narrative 02/03/2025 11:47 AM EDT ? [facility] ?[address] ?[place] [address] ?XRay Report ? Signed ? Patient: Rohith,Worcester ?MR#: [id number] ?? 57 ? : 1970 ?Acct:[id number] ? Age/Sex: 55 / F ?ADM Date: 02/03/25 ? Loc: HO.ED ? Attending Dr: ? Ordering Physician: Anaid Wills ?? Date of Service: 02/03/25 ?? Procedure(s): XR chest 2V ?? Accession Number(s): [id number] ? cc: Anaid Wills; Jazlyn Addison DO [...] DD/ 1131 ? TD/TT: 02/03/25 1140 ? Toilet Products Molder: ? Procedure Note Edu Arguello - 02/03/[address] [address] XRay Report Signed Patient: Ira Newberry#: [id number] 57 : 1970Acct:[id number] Age/Sex: 55 / FADM Date: 02/03/25 Loc: HO.ED Attending Dr: Ordering Physician: Anaid Wills Date of Service: 02/03/25 Procedure(s): XR chest 2V Accession Number(s): [id number] cc: Anaid Wills; Jazlyn Addison DO EXAMINATION: [...] 02/03/25 1144 DD/ 1131 TD/TT: 02/03/25 1140 Toilet Products Molder: [facility] External Provider IMG XR PROCEDURES Final Result documented in this encounter Visit Diagnoses Not on filedocumented in this encounter Additional Health Concerns Assessment Noted Time PHQ-9 Depression Total Score: 2 04/18/20 24 10:31 AM EDT documented as of this encounter Care Teams Slip Injector And Applicator Relationship Specialty Start Date End Date Jazlyn Addison DO [address] [place] [address] PCP - General Family Medicine 03/01/12 documented as of this encounter
--- OUTSIDE RECORDS SUMMARY | 2025-02-03 19:05 | XMS_ITS | Encounter Summary ---
Author Organization [employer] Address [address] [facility] [address] [place] [address] Care Team Providers Care Survey Questionnaire Designer Name Role Phone Jazlyn Addison DO Primary Care Provider [phone] Reason for Visit * Reason Comments Med Refill Encounter Details Date Type Department Care Team (Late st Contact Info) Description 12/26/2024 Refill [facility] [address], [place] [phone] Sharee Diana MD [address] [place], [place] [phone] Social History Tobacco Use Types Packs/Day Years [...] documented as of this encounter Care Teams Survey Questionnaire Designer Relationship Specialty Start Date End Date Jazlyn Addison DO [address] [place] [address] PCP - General Family Medicine 03/01/12 documented as of this encounter
[2025-02-03 20:21] VITALS: BP 138/76; PULSE 73; RESP 14; TEMP 36.4; O2SAT 98
[2025-02-03 20:23] VITALS: PULSE 73
--- NOTE | 2025-02-03 20:46 | ED_ITS ---
HPI - Chest Pain General Chief Complaint: Chest Pain Stated Complaint: Chest Pain X 1 Week Time Seen by Provider: 02/03/25 18:47 History of Present Illness HPI narrative: Patient is a 55-year-old female presents today with having chest pain that is mid chest. Worse with specific movement not made worse with exertion there is no fever no chills. There is no leg swelling. There is no history of travel. No history of blood clots. Positive history of diabetes, hypertension never had a heart attack never had a stroke. Patient pain is been constant all day. Not associated with any diaphoresis not associated with shortness of breath. Similar to previous bouts of chest pain. Related Data Home Medications ?Medication ?Instructions ?Recorded ?Confirmed acetaminophen 650 mg 650 mg PO Q8H PRN 07/22/21 01/18/25 tablet,extended release (Mapap Arthritis Pain) alcohol swabs (BD Alcohol Swabs) 0 pad topical TID 07/22/21 01/18/25 blood sugar diagnostic (FreeStyle #10 ea 07/22/21 01/18/25 Lite Strips) cholecalciferol (vitamin D3) 50 100 mcg PO DAILY 07/22/21 01/18/25 mcg (2,000 unit) tablet lancets 28 gauge (FreeStyle #100 ea 07/22/21 01/18/25 Lancets) metformin 500 mg tablet 1,000 mg PO BID 07/22/21 01/18/25 omeprazole 20 mg capsule,delayed 20 mg PO BID 07/22/21 01/18/25 release lisinopril 40 mg tablet 40 mg PO DAILY 02/12/22 01/18/25 amlodipine 2.5 mg tablet mg PO DAILY 11/24/24 01/18/25 Previous Rx's ?Medication ?Instructions ?Recorded clotrimazole-betamethasone 1 1 appl topical BID 2 weeks #45 09/04/23 %-0.05 % topical cream grams Allergies Allergy/AdvReac Type Severity Reaction Status Date / Time No Known Allergies Allergy Verified 02/03/25 11:31 none Allergy Unknown Unknown Uncoded 01/18/25 11:58 Review of Systems 2 Review of Systems: Positive chest pain PMFSH Past Medical History Attestation statement: The following information was validated with the patient. Medical History Family history of breast cancer Skin tag Seborrheic dermatitis Chronic pain of right knee Chronic bilateral low back pain with left-sided sciatica Chronic GERD Major depression, recurrent, chronic Fatty liver Hyperlipidemia HTN (hypertension) Diabetes Surgical History History of cholecystectomy Family History Family History Father Myocardial infarction Maternal Aunt Breast cancer, Onset Age: 24 Social History Social History Alcohol intake: never Patient Tobacco Use Status: Never used Tobacco Smoked in Last 30 Days: No Use of substances other than those prescribed or required for medical reasons: No Advance Directives: No Advance Directives Information Provided: Yes Sexual orientation: Straight/Heterosexual Gender identity: Female Physical Exam 2 Vital Signs: Vital Signs: Last Vital Signs Temp 97.6 F 02/03/25 20:21 Pulse 73 02/03/25 20:21 Resp 14 02/03/25 20:21 BP 138/76 02/03/25 20:21 Pulse Ox 98 02/03/25 20:21 O2 Del Method Room Air 02/03/25 20:21 BMI result Body Mass Index 32.5 Appearance: Alert. Oriented X3. No acute distress. Eyes: Pupils equal, round and reactive to light. ENT: Pharynx normal. Neck: Normal inspection. Neck supple. No lymph nodes noted. No crepitus CVS: Normal heart rate and rhythm. Pulses normal. Normal S1 and S2 Respiratory: No respiratory distress. Breath sounds normal. No Wheezing. No rales Abdomen: Soft and nontender. No rigidity. No distention. good BS x4 Skin: Skin warm and dry. Normal skin color. Normal skin turgor. Extremities: No lower extremity edema. Neurovascular intact to all extremities. No Lacerations. No Rash Neuro: Oriented X 3. No motor deficit. No sensory deficit. Moving all extermities. No slurred speech Medical Decision Making Medical Decision Making MDM Narrative: My interpretation of patient's EKG showed a sinus rhythm heart rate is 80 CO QRS QTC normal no acute ST segment elevation when compared to previous EKG is grossly unchanged. My interpretation patient's chest x-ray was grossly negative there is no evidence for pneumonia pneumothorax. Patient has no risk for PE and history is not consistent with PE. O2 sats 99% on room air. Unlikely to be pulmonary emboli. Patient has 2 sets of troponin are negative. Had a stress test done last August. It was grossly negative. Patient does have 2 cardiac risk factors including diabetes and hypertension history not consistent with ACS. In the setting of no changes in EKG patient's heart score is a 3. Will have patient follow-up on an outpatient basis. Currently in stable condition. Differential Diagnosis Differential Diagnoses: The differential diagnosis associated with the presentation includes ACS, pneumonia, pneumothorax, PE Admission/Observation Consideration of admission/observation: Escalation of care including admission/observation considered Lab Data MDM Lab Attestation statement: I reviewed the patient's lab results. 02/03/25 11:59 02/03/25 11:59 Labs: Lab Results 02/03/25 02/03/25 Range/Units 11:59 16:57 WBC 7.4 (4.8-10.8) X10*3/uL RBC 4.42 (4.20-5.50) X10*6/uL Hgb 12.0 (12.0-16.0) g/dl Hct 37.6 (37.0-47.0) % MCV 85.1 (80.0-98.0) fL MCH 27.1 (27.0-33.0) pg MCHC 31.9 (31.0-35.0) g/dl RDW 13.2 (11.0-16.0) % Plt Count 285 (160-400) X10*3/uL MPV 11.0 (9.4-12.3) fL Immature Gran % (Auto) 0.3 (0.0-0.4) % Neut % (Auto) 60.4 (45-73) % Lymph % (Auto) 28.2 (20-40) % [place] % (Auto) 7.8 (2-11) % Eos % (Auto) 2.6 (0-4) % Baso % (Auto) 0.7 (0-2) % Lymph # (Auto) 2.1 (1.2-4.9) X10*3/uL [place] # (Auto) 0.6 (0.1-1.2) X10*3/uL Eos # (Auto) 0.2 (0.0-0.4) X10*3/uL Baso # (Auto) 0.1 (0.0-0.2) X10*3/uL Abs Immat Gran (auto) 0.02 (0.00-0.03) X10*3/uL Absolute Neuts (auto) 4.5 (2.0-8.3) x10*3/uL Absolute Nucleated RBC 0.000 (0.0-0.012) X10*3/uL Nucleated RBC % (auto) 0.0 (0.0-0.2) /100WBC Sodium 141 (135-145) mmol/L Potassium 4.0 (3.3-5.1) mmol/L Chloride 106 (96-108) mmol/L Carbon Dioxide 26 (22-29) mmol/L Anion Gap 13 (12-20) BUN 15 (9-16) mg/dL Creatinine 0.73 (0.5-1.4) mg/dL Estim Creat Clear Calc 83.6 Estimated GFR > 60 Random Glucose 181 H (60-115) mg/dL Calcium 9.2 (8.4-10.2) mg/dL Magnesium 1.6 (1.6-2.6) mg/dL Total Bilirubin 0.3 (0.0-1.0) mg/dL AST 22 (5-31) U/L ALT 36 H (0-31) U/L Alkaline Phosphatase 76 (39-117) U/L Troponin I High Sens < 2.7 < 2.7 (<3.5-17.0) ng/L Total Protein 7.5 (6.5-8.0) g/dL Albumin 4.2 (3.5-5.0) g/dL Influenza Type A (PCR) NEGATIVE (Negative) Influenza Type B (PCR) NEGATIVE (Negative) RSV RNA Qual (PCR) NEGATIVE (Negative) SARS-CoV-2 RNA (RT-PCR) NEGATIVE (Negative) Independent Interpretation I performed an independent interpretation of an: EKG ( my interpretation patient's EKG showed a sinus rhythm heart rate is 70 CO QRS QTC normal no acute ST segment elevation. No change from previous.) and Plain X-Ray ( My interpretation patient's chest x-ray grossly negative) Radiology Impression Discussion of test interpretation with radiology: I have reviewed the radiologist's reading. External Record Review External record reviewed: Office record and Outpatient record Chronic Conditions Patient?s care impacted by: Diabetes and Hypertension Social Determinants Patient?s care significantly limited by Social Determinants of Health including: Problems related to primary support group Discharge Plan Discharge Clinical Impression: Chest pain Patient Disposition: Home, Self-Care Instructions: Chest Pain (ED) Prescriptions: No Action metformin 500 mg tablet 1,000 mg PO BID alcohol swabs [BD Alcohol Swabs] Pads, Medicated 0 pad topical TID acetaminophen [Mapap Arthritis Pain] 650 mg tablet extended release 650 mg PO Q8H PRN omeprazole 20 mg capsule,delayed release(DR/EC) 20 mg PO BID cholecalciferol (vitamin D3) 50 mcg (2,000 unit) tablet 100 mcg PO DAILY (DME) lancets [FreeStyle Lancets] 28 gauge misc See Rx Instructions topical DIRECTED Qty: 100 Rx Instructions: As directed (DME) FreeStyle Lite Strips Strip See Rx Instructions Not Applicable TID Qty: 10 Rx Instructions: As directed lisinopril 40 mg tablet 40 mg PO DAILY clotrimazole-betamethasone 1-0.05 % cream 1 appl topical BID 14 Days Qty: 45 1RF amlodipine 2.5 mg tablet PO DAILY Referrals: Saul Main MD [Physician] - 02/06/25 Print Language: Azeri
[2025-02-03 21:23] VITALS: BP 138/76; PULSE 73; RESP 14; TEMP 36.4; O2SAT 98
== END 2025-02-03 21:23 | disposition home or self-care (01) ==
PROVIDERS: Physician Assistant Medical; Emergency Provider Emergency Medicine Emergency Medical Services; PCP Family Medicine
DX: R07.89 Other chest pain (principal); R06.02 Shortness of breath; Z79.899 Other long term (current) drug therapy; Z03.818 Encounter for observation for suspected exposure to other biological agents ruled out
CPT/HCPCS: 0241U; 36415; 71046; 80053; 83735; 84484; 85025; 93005; 99283; 99285

== ENCOUNTER → 2025-02-03 11:10 | Outpatient (BNV) | payer MEDICAID, SELFPAY | PROVIDERS: Emergency Provider Emergency Medicine Emergency Medical Services; PCP Family Medicine; Visit Provider Internal Medicine | DX: R94.31 Abnormal electrocardiogram [ECG] [EKG] (principal); R07.9 Chest pain, unspecified; R06.02 Shortness of breath | CPT/HCPCS: 93010 ==

== ENCOUNTER → 2025-02-03 11:31 | Outpatient (BNV) | payer MEDICAID, SELFPAY | PROVIDERS: PCP Family Medicine; Visit Provider Radiology Diagnostic Radiology | DX: R07.9 Chest pain, unspecified (principal) | CPT/HCPCS: 71046 ==

== ENCOUNTER 2025-04-03 11:38 | Outpatient (REF) | payer MEDICAID, SELFPAY ==
--- OUTSIDE RECORDS SUMMARY | 2025-04-03 12:54 | XMS_ITS | Clinical Summary ---
[facility] Organization [facility] Address [address] [place] [address] Care Team Providers Care Leather Coater Name Role Phone Unavailable Primary Care Provider [...] age to complete this topic Meningococcal B Vaccine Aged Out No l onger eligible based on patient's age to complete [...]
[2025-04-03 13:17] LABS: Hematocrit 34.9 % (37.0-47.0); Hemoglobin 11.3 g/dl (12.0-16.0); Mean Corpuscular HGB Conc 32.4 g/dl (31.0-35.0); Mean Corpuscular Hemoglobin 27.7 pg (27.0-33.0); Mean Corpuscular Volume 85.5 fL (80.0-98.0); Mean Platelet Volume 11.9 fL (9.4-12.3); Platelet Count 243 X10*3/uL (160-400); Red Blood Count 4.08 X10*6/uL (4.20-5.50); Red Cell Distribution Width 13.9 % (11.0-16.0); White Blood Count 10.6 X10*3/uL (4.8-10.8)
[2025-04-03 13:30] LABS: Estimated Average Glucose 148 mg/dL; Hemoglobin A1C 152.4461 umol/L; Hemoglobin A1c % 6.8 % (<6.0)
[2025-04-03 13:38] LABS: Alanine Aminotransferase 35 U/L (0-31); Albumin Level 3.9 g/dL (3.5-5.0); Anion Gap 12 (12-20); Aspartate Amino Transferase 26 U/L (5-31); Bilirubin Direct 0.1 mg/dL (0.0-0.5); Bilirubin Total 0.3 mg/dL (0.0-1.0); Blood Urea Nitrogen 15 mg/dL (9-16); Calcium 8.8 mg/dL (8.4-10.2); Carbon Dioxide 24 mmol/L (22-29); Chloride 107 mmol/L (96-108); Cholesterol 153 mg/dL (<200); Estimated Glomerular Filt Rate > 60; Glucose Random 118 mg/dL (60-115); HDL Cholesterol 42 mg/dL (>40); LDL Cholesterol Calculated 87 mg/dL (<100); Potassium 4.4 mmol/L (3.3-5.1); Sodium 139 mmol/L (135-145); Triglycerides 124 mg/dL (<150)
[2025-04-03 13:42] LABS: Creatinine Urine 142.22 mg/dL
[2025-04-03 13:46] LABS: Alkaline Phosphatase 77 U/L (39-117)
[2025-04-03 13:59] LABS: Free T4 (Free Thyroxine) 0.99 ng/dL (0.71-1.85); Thyroid Stimulating Hormone 0.67 uIU/mL (0.32-4.0); Vitamin D 25-OH Total 41.7 ng/mL (>30)
[2025-04-03 15:11] LABS: CT PCR NOT DETECTED (Not Detect.); NG PCR NOT DETECTED (Not Detect.)
[2025-04-04 08:11] LABS: HBS Num1 0.99 mIU/mL (0-7.99); HBc Num1 0.21 S/CO (0.00-0.79); HBsAGNum1 0.35 S/CO (0.00-0.99); HIV AB/AG Nonreactive (Nonreactive); HIV Num 1 0.12 S/CO (0.00-0.99); Hepatitis B Core Antibody Nonreactive (Nonreactive); Hepatitis B Surface Antigen Negative (Negative); ~HepC Num1 0.14 S/CO (0.00-0.79); ~Hepatitis B Surface Antibody NONREACTIVE (Nonreactive); ~Hepatitis C Antibody Nonreactive (Nonreactive)
[2025-04-04 12:45] LABS: Alpha Fetoprotein 1.9 ng/mL
[2025-04-04 13:34] LABS: RPR Rapid Plasma Reagin NON-REACTIVE (NON-REACTIVE)
[2025-04-07 05:25] LABS: Hepatitis A Antibody IgG Nonreactive (Nonreactive)
== END 2025-04-03 11:39 | disposition home or self-care (01) ==
LOC: HO.HHCL 11:38
PROVIDERS: Visit Provider Family Medicine
DX: E11.29 Type 2 diabetes mellitus with other diabetic kidney complication (principal); R80.9 Proteinuria, unspecified; K76.0 Fatty (change of) liver, not elsewhere classified
CPT/HCPCS: 80048; 80061; 80076; 82043; 82105; 82306; 82570; 83036; 84439; 84443; 85027; 86592; 86704; 86706; 86708; 86803; 87340; 87389; 87491; 87591

== ENCOUNTER 2025-06-27 12:15 | Outpatient (REF) | payer MEDICAID, SELFPAY ==
--- NOTE | ~2025-06-27 | XR_ITS ---
EXAMINATION: XR CHEST CLINICAL INFORMATION: left chest pain, radiating to the back COMPARISON: 02/03/2025 TECHNIQUE: 2 views of the chest were obtained. FINDINGS: The cardiac, hilar, and mediastinal contours are normal. The lungs are clear bilaterally. There is no pneumothorax or pleural effusion. There is no focal osseous or soft tissue abnormality. There are cholecystectomy clips present. XR/XR chest 2V IMPRESSION: Normal chest. Electronically signed by: Jimmy Hidalgo MD 06/27/2025 01:19 PM EDT
--- NOTE | ~2025-06-27 | XR_ITS ---
EXAMINATION: XR CERVICAL SPINE 2-3 VIEWS HISTORY: neck pain COMPARISON: Comparison is made with the prior examination dated 06/28/2020. FINDINGS: AP, lateral, and open-mouth odontoid views of the cervical spine are submitted. Osseous mineralization is normal. Seven cervical vertebral bodies are identified maintaining normal height without evidence of fracture or subluxation. There is straightening of the normal cervical lordosis. There is moderate degenerative disc disease with disc space narrowing and osteophyte formation. The odontoid and lateral masses of C1 are intact. There is no prevertebral soft tissue swelling. XR/XR cervical spine 3V IMPRESSION: Straightening of the normal cervical lordosis. Moderate degenerative disc disease. Electronically signed by: Loi Reyes MD 06/27/2025 01:17 PM EDT
--- OUTSIDE RECORDS SUMMARY | 2025-06-27 10:45 | XMS_ITS | Encounter Summary ---
Author Organization [employer] Address [address] [place] [address] [address] [place] [address] Care Team Providers Care Jointer Operator Name Role Phone ShakilaJazlyn ballard Primary Care Provider [phone] Reason for Referral * Imaging (Routine) - Authorized Specialty Diagnoses / Procedures Referred By Contac t Referred To Contact Radiology Diagnoses Breast pain, left Procedures BI Mammogram Diagnostic Tomosynthesis Left Nenita James MD [address] [place] [phone] Phone: tel: fax: [address] Phone: tel: fax: Referral ID Status Reason Start Date Expiration Date V isits Requested Visits Authorized [id number] Authorized 06/27/2025 06/27/2026 1 1 Encounter Details Date Type Department Care Team (Late st Contact Info) Description 06/27/2025 10:45 AM EDT Office Visit [facility] [address] [place] [phone] Nenita James MD [address] [place] [phone] Neck pain on left side (Primary Dx); Breast pain, left; Left-sided chest pain; Acute pain of left shoulder; Dietary counseling; Exercise counseling; Class 1 obesity due to excess calories with serious comorbidity and body mass index (BMI) of 32.0 to 32.9 in adult Social History Tobacco Use Types Packs/Day Years [...] Access Q2 Not on file 07/04/2024 Comments No Sex and Gender Information Value Date Recorded Sex Assigned at Female 09/01/2022 10:17 AM EDT Legal Sex Female 10:17 AM EDT Gender Identity Female 09/01/2022 10:17 AM EDT Sexual Orientation Straight 09/01/2022 10 :17 AM EDT documented as of this encounter Last Filed Vital Signs Vital Sign Reading Time Taken Comments Blood Pressure 120/90 06/27/2025 11:25 AM EDT Pulse 75 06/27/2025 11:25 AM EDT Temperature 35.9 C (96.6 F) 06/27/2025 11:25 AM EDT Respiratory Rate 22 06/27/2025 11:25 AM EDT Oxygen Saturation 100% 06/27/2025 11:25 AM EDT Inhaled Oxygen Concentration - - Weight 80.9 kg (178 lb 6.4 oz) 06/27/2025 11:25 AM EDT Height 157.5 cm (5' 2 ) 06/27/2025 11:25 AM EDT Body Mass Index 32.63 06/27/2025 11:25 AM EDT documented in this encounter Plan of Treatment Upcoming Encounters Date Type Department Care Team (Late st Contact Info) Description 07/31/2025 10:30 AM EDT Office Visit [facility] [address] [place] [phone] Jazlyn Addison DO [address] [place] [address] Scheduled Orders Name Type Priority Associated Diagnoses Orde r Schedule BI Mammogram Diagnostic Tomosynthesis Left Imaging Routine Breast pain, left Expected: 06/27/2025, Expires: 08/27/2026 XR Chest 2 Views Imaging Routine Left-sided chest pain Expected: 06/27/2025, Expires: 06/27/2026 XR CERVICAL SPINE 3V Imaging Routine Neck pain on left side Expected: 06/27/2025, Expires: 06/27/2026 documented as of this encounter Visit Diagnoses Diagnosis Neck pain on left side- Primary Breast pain, left Left-sided chest pain Acute pain of left shoulder Dietary counseling Dietary surveillance and counseling Exercise counseling Class 1 obesity due to excess calories with serious comorbidity and body mass index (BMI) of 32.0 to 32.9 in adult documented in this encounter Additional Health Concerns Assessment Noted Time PHQ-9 Depression Total Score: 2 04/18/20 24 10:31 AM EDT documented as of this encounter Care Teams Jointer Operator Relationship Specialty Start Date End Date Jazlyn Addison DO [address] [place] [address] PCP - General Family Medicine 03/01/12 documented as of this encounter
--- OUTSIDE RECORDS SUMMARY | 2025-06-27 13:07 | XMS_ITS | Clinical Summary ---
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 30 tablet 11 01/14/20 24 Active Alcohol Swabs (B-D SINGLE USE SWABS REGULAR) pads USED DIRECTED THREE TIMES DAILY 100 each 06/10/20 24 Active FreeStyle lancets USE TO TEST [...] at bedtime. 30 tablet 3 10/17/20 24 Active glucose blood (FREESTYLE LITE) test strip USE TO TEST THREE TIMES DAILY 100 strip 11 11/11/19 25 Active fluticasone (Flonase) 50 MCG/ACT nasal spray Administer 1 spray into each nostril 2 times daily for 14 days. 16 g 11/29/19 25 Active amLODIPine (Norvasc) 2.5 MG tablet TAKE 1 TABLET(2.5 MG) BY MOUTH IN THE MORNING 90 tablet 3 03/16/20 25 Active metFORMIN (Glucophage) 500 MG tabletIndications:Ty pe 2 diabetes mellitus with other specified complication, without long-term current use of insulin (CMS/HCC) TAKE 2 TABLETS BY MOUTH TWICE DAILY WITH MEALS 360 tablet 1 03/23/20 25 Active lisinopril 40 MG tabletIndications:Pr imary hypertension TAKE 1 TABLET BY MOUTH DAILY 90 tablet 3 04/19/20 25 Active meloxicam (Mobic) 15 MG tablet Take 1 tablet (15 mg) by mouth Once per day. 30 tablet 05/22/20 25 026 Active acetaminophen (Tylenol Extra Strength) 500 MG tablet Take 1 tablet (500 mg) by mouth every 6 (six) hours if needed for mild pain. 120 tablet 05/22/20 25 025 Active Problems Problem Noted Date Diagnosed Date Acute costochondritis 05/22/2025 Assessment & Plan (05/22/2025 1:02 PM EDT): Reassurance, Toradol injection today Continue meloxicam daily x 1 week and Tylenol as needed breakthrough pain Advised to apply heat to affected area Nasal congestion 05/22/2025 Assessment & Plan (05/22/2025 1:00 PM EDT): Only w/ mild cough, no other sxs and viral test is negative. Reassurance, instructions to take Tylenol PRN URI symptoms and to consult PRN if she develops fever, worseg cough or SOB History of COVID-19 02/03/2023 Hyperlipidemia 02/03/2023 Chronic [...] Problem Noted Date Diagnosed Date Resolved Date Subacute maxillary sinusitis 11/29/2024 04/03/2025 Assessment & Plan (11/29/2024 1:22 PM EST): For Augmentin x 7 days. Rest (sleep at least 8 hours a night). Hydrate with plenty of water (avoid caffeine and alcohol). Use saline nose drops to loosen mucus, use Flonase twice daily x 1 week Take Acetaminophen (Tylenol )/Ibuprofen as needed to reduce fever, headache, body [...] 48 hours (temperature should be less than 100 F without medication). 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 02/03/2023 Encounters Date Type Department Care Team Description 06/27/2025 10:45 AM EDT Office Visit [facility] [address] [place] [address] Nenita James MD Neck pain on left side (Primary Dx); Breast pain, left; Left-sided chest pain; Acute pain of left shoulder; Dietary counseling; Exercise counseling; Class 1 obesity due to excess calories with serious comorbidity and body mass index (BMI) of 32.0 to 32.9 in adult 06/27/2025 Telephone [facility] [address] [place] [address] Jazlyn Addison, Referral 06/27/2025 Travel 06/26/2025 Telephone [facility] [address] [place], [place] [phone] Jazlyn Addison DO Nurse Triage 05/22/2025 10:20 AM EDT Office Visit [facility] [address] [place] [address] Sharee Diana MD Acute costochondritis (Primary Dx); Nasal congestion 05/03/2025 Telephone [facility] [address] [place] [address] Jazlyn Addison DO telephone call 04/18/[address] [phone] Jazlyn Addison DO Primary hypertension 04/03/2025 10:30 AM EDT Office Visit [facility] [address] [place] [phone] Jazlyn Addison DO Type 2 diabetes mellitus with diabetic microalbuminuria, without long-term current use of insulin (CMS/HCC) (Primary Dx); Essential hypertension; Other hyperlipidemia; Fatty liver; Major depression, recurrent, chronic (CMS/HCC); Chronic gastroesophageal reflux disease; Obstructive sleep apnea; Chest pain, unspecified type; Chronic bilateral low back pain with left-sided sciatica; Chronic venous insufficiency; New onset headache; Neck pain; Healthcare maintenance 04/03/2025 Travel 03/31/2025 Telephone [facility] [address] [place] [address] [phone] Jazlyn Addison DO Chart Prep from Last 3 Months Immunizations Immunization Administration Dates Next Due Influenza injectable quadriv [...] Mass Index 32.63 06/27/2025 11:25 AM EDT Plan of Treatment Upcoming Encounters Date Type Department Care Team (Late st Contact Info) Description 07/31/2025 10:30 AM EDT Office Visit [facility] [address] [place], [place] [phone] Jazlyn Addison DO [address] [place] [address] Health Maintenance Due Date Last Done Comments [...] - PCV) 07/29/2019 07/29/2018 COVID-19 Vaccine ( - season) 2024 02/03/2023, 11/27/2021, 04/08/2021, Additional history exists Depression Screening 04/18/2025 04/18/2024, 04/18/20 24 SDOH Screening 04/18/2025 04/18/2024 Influenza Vaccine (#1) 2025 4, 08/07/2023, 07/29/2022, Additional history exists Diabetes: Hemoglobin A1C 07/04/2025 025, 04/03/2025, 09/12/2024, Additional history exists Mammogram 09/02/2025 09/02/2024, 1111/2023, 12/02/2023, Additional history exists Disability Screening 04/03/2026 04/03/2025 Lipid Panel 04/03/2026 04/03/2025, 11/03, 11/20/2021, Additional history exists Tobacco Screening 06/27/2026 06/27/2025 Cervical Cancer Screening 07/22/2026 HPV/Cotest 07/22/2026 07/22/2021, 07/04, 07/22/2021 Pap Smear 07/22/2026 07/22/2021 Colorectal Cancer Screening 08/26/2026 FIT DNA/Cologuard 08/26/2026 08/26/2023 DTaP/Tdap/Td Vaccines (2 - Td or Tdap) 06/24/2031 06/24/2021 RSV Patients and Patients Aged 60 years or older (1 - 1-dose 75+ series) 01/16/2043 HIV Screening Completed 04/03/2025, 11/02, 12/14/2020, Additional history exists Hepatitis C Screening Completed 04/03/2025 , 11/20/2021, 12/14/2020, Additional history exists HIB Vaccines Aged Out [...] Name Priority Date/Time Associated Diagnosis Comments POCT RAPID STREP A Routine 05/22/2025 10 :16 AM EDT Nasal congestion POCT COVID-19 AG EPPERSON ID NOW Routine 05/22/2025 10:16 AM EDT Nasal congestion POCT GLYCATED HEMOGLOBIN, TOTAL Routine 04/03/2025 11:54 AM EDT Type 2 diabetes mellitus with diabetic microalbuminuria, without long-term current use of insulin ([facility]) POCT GLUCOSE Routine 04/03/2025 11:52 AM EDT Type 2 diabetes mellitus with diabetic microalbuminuria, without long-term current use of insulin (CMS/HCC) ALPHA FETOPROTEIN, TUMOR MARKER Routine 04/03/2025 11:47 AM EDT Fatty liver HEPATITIS A ANTIBODY, TOTAL Routine 04/03/2025 11:47 AM EDT Type 2 diabetes mellitus with diabetic microalbuminuria, without long-term current use of insulin (CMS/HCC) HEPATITIS B CORE AB TOTAL Routine 04/03/2025 11:47 AM EDT Type 2 diabetes mellitus with diabetic microalbuminuria, without long-term current use of insulin (CMS/HCC) HEPATITIS B SURFACE ANTIBODY, QUALITATIVE Routine 04/03/2025 11:47 AM EDT Type 2 diabetes mellitus with diabetic microalbuminuria, without long-term current use of insulin (CMS/HCC) RPR (MONITOR) W/REFL TITER Routine 04/03/2025 11:47 AM EDT Type 2 diabetes mellitus with diabetic microalbuminuria, without long-term current use of insulin (CMS/HCC) HEPATITIS C AB W/REFL TO HCV RNA, QN, PCR Routine 04/03/2025 11:47 AM EDT Type 2 diabetes mellitus with diabetic microalbuminuria, without long-term current use of insulin (CMS/HCC) HIV 1/2 ANTIGEN/ANTIBODY, FOURTH GENERATION W/RFL Routine 04/03/2025 11:47 AM EDT Type 2 diabetes mellitus with diabetic microalbuminuria, without long-term current use of insulin (CMS/HCC) HEPATITIS B SURFACE ANTIGEN, EIA Routine 04/03/2025 11:47 AM EDT Type 2 diabetes mellitus with diabetic microalbuminuria, without long-term current use of insulin (CMS/HCC) ALBUMIN, RANDOM URINE W/CREATININE Routine 04/03/2025 11:47 AM EDT Type 2 diabetes mellitus with diabetic microalbuminuria, without long-term current use of insulin (CMS/HCC) CBC Routine 04/03/2025 11:47 AM EDT Type 2 diabetes mellitus with diabetic microalbuminuria, without long-term current use of insulin (CMS/HCC) BASIC METABOLIC PANEL Routine 04/03/2025 11:47 AM EDT Type 2 diabetes mellitus with diabetic microalbuminuria, without long-term current use of insulin (CMS/HCC) HEMOGLOBIN A1C Routine 04/03/2025 11:47 AM EDT Type 2 diabetes mellitus with diabetic microalbuminuria, without long-term current use of insulin (CMS/HCC) HEPATIC FUNCTION PANEL Routine 04/03/2025 11:47 AM EDT Type 2 diabetes mellitus with diabetic microalbuminuria, without long-term current use of insulin (CMS/HCC) TSH Routine 04/03/2025 11:47 AM EDT Type 2 diabetes mellitus with diabetic microalbuminuria, without long-term current use of insulin (CMS/HCC) LIPID PANEL, STANDARD Routine 04/03/2025 11:47 AM EDT Type 2 diabetes mellitus with diabetic microalbuminuria, without long-term current use of insulin (CMS/HCC) VITAMIN D,25-OH,TOTAL,IA Routine 04/03/2025 11:47 AM EDT Type 2 diabetes mellitus with diabetic microalbuminuria, without long-term current use of insulin (CMS/HCC) T4, FREE Routine 04/03/2025 11:47 AM EDT Type 2 diabetes mellitus with diabetic microalbuminuria, without long-term current use of insulin (CMS/HCC) CHLAMYDIA/N. GONORRHOEAE RNA, TMA, UROGENITAL Routine 04/03/2025 11:47 AM EDT Type 2 diabetes mellitus with diabetic microalbuminuria, without long-term current use of insulin (CMS/HCC) BI US BREAST LIMITED LEFT Routine 09/02/2024 11:00 AM EDT LAB COLOGUARD COLON CANCER SCREEN Routine 08/26/2023 12:20 PM EDT Healthcare maintenance HM PAP/HPV Routine 07/22/2021 from Last 3 Months or Most Recently Relevant to Health Maintenance Results * POCT COVID-19 Ag [facility] ID NOW (05/22/2025 10:16 AM EDT) [facility] Coronavirus Antigen PCR Negative Negative, Indeterminate, None Detected, Invalid, Specimen unsatisfactory for evaluation, Weakly Positive, 2+ Swab 05/22/2025 10:1 6 AM EDT Sharee Diana MD POINT OF CARE TEST ENTER /EDIT ORDERABLES Final Result * POCT rapid strep A manually resulted (05/22/2025 10:16 AM EDT) [facility] Rapid Strep A Screen Negative Negative, None Detected Swab 05/22/2025 10:1 6 AM EDT Sharee Diana MD POINT OF CARE TEST ENTER /EDIT ORDERABLES Final Result * (ABNORMAL) POCT HGB A1C (04/03/2025 11:54 AM EDT) [facility] Hemoglobin A1C 10,230,191 .0(A) 4.0 - 6.0 % QC Media Lot # ,[id number] Lot# Expiration Date Blood 04/03/2025 11:5 4 AM EDT Jazlyn Addison DO POINT OF CARE TEST ENTER/NIDIA T ORDERABLES Final Result * POCT Glucose (04/03/2025 11:52 AM EDT) [facility] Glucose Blood, POC 148 60 - 200 mg/dL QC Media Lot # [id number] Lot# Expiration Date Blood Capillary blood specimen / Unknown 04/03/2025 11:52 AM EDT Jazlyn Addison DO POINT OF CARE TEST ENTER/NIDIA T ORDERABLES Final Result * Vitamin D, 25-Hydroxy, Total, Immunoassay (04/03/2025 11:47 AM EDT) Vitamin D 25-OH Total 41.7 >30 ng/mL [facility] Comment: Health Based Reference Values*< 20 ng/mL Xftplyord79-74 ng/mL Insufficient> 30 ng/mL Sufficient*Cam BENITES. N Engl J Med. 2007;357:266-280There is no well-established upper level of normal vitamin Dlevels. Some laboratories use 50 ng/mL as an upper limit ofnormal. However, toxicity is patient-dependent and may occurat any level. Careful correlation with the patient'spresentation is necessary and, if there is concern forvitamin D toxicity, treatment should be consideredirrespective of the serum level.Care must be taken in interpreting Vitamin D results fromdifferent laboratories and methodologies. Published datademonstrated that results from patients undergoinghemodialysis may show a negative bias when tested withvarious automated 25-OH vitamin D assays when compared toLC-MS/MS.When testing samples from patients whose predominant form ofVitamin D is Vitamin D2, such as patients receiving VitaminD2 supplementation, results that are subtherapeutic shouldbe confirmed with another method such as LC-MS/MS. Blood Venous blood specimen / Unknown 04/03/2025 11:47 AM EDT 04/03/2025 1:01 PM EDT Jazlyn Addison DO LAB BLOOD ORDERABLES Final R esult [facility] [address] [place] [phone] * Albumin, Random Urine W/Creatinine (04/03/2025 11:47 AM EDT) Creatinine, Urine 142.22 mg/dL [facility] Microalbumin Urine 10.0 mg/L [facility] Microalbum Creatinine Ratio Ur 7.0 <30 ug/mg cr [facility] Comment:Albumin/Creatinine R at Reference Ranges: Normal: < 30 ug/mg creatinine Microalbuminuria: 30 - 300 ug/mg creatinineClinical Albuminuria: > 300 ug/mg creatinine Urine (Urine, Random) 04/03/2025 11:47 AM EDT 04/03/2025 12:59 PM EDT us Jazlyn Addison DO LAB URINE ORDERABLES Final R esult Performing Organization Address [facility] Co de Phone Number [facility] [address] [place] [phone] * Hepatitis C Antibody with Reflex to HCV, RNA, Quantitative, Real-Time PCR (04/03/2025 11:47 AM EDT) Hepatitis C Antibody Nonreactive Nonreactive [facility] Comment:Antibodies to HCV no t detected; does not exclude early acuteHCV infection. Blood Venous blood specimen / Unknown 04/03/2025 11:47 AM EDT 04/03/2025 1:01 PM EDT Jazlyn Addison DO LAB BLOOD ORDERABLES Final R esult Performing Organization Address City/[facility]/ZIP Co de Phone Number [facility] [address] [place] [phone] * Hepatitis A Antibody, Total (04/03/2025 11:47 AM EDT) Hepatitis A Antibody IgG Nonreactive Nonreactive [facility] Blood Venous blood specimen / Unknown 04/03/2025 11:47 AM EDT 04/03/2025 1:01 PM EDT Jazlyn Addison DO LAB BLOOD ORDERABLES Final R esult [facility] [address] [place] [phone] * Alpha-Fetoprotein, Tumor Marker (04/03/2025 11:47 AM EDT) [facility] Alpha Fetoprotein 1.9 ng/mL [facility] Comment:Reference Range: <6. 1The use of AFP as a tumor marker in females is not recommended.This test was performed using the Guillermina Coulterchemiluminescent method. Values obtained fromdifferent assay methods cannot be usedinterchangeably. AFP levels, regardless ofvalue, should not be interpreted as absoluteevidence of the presence or absence of disease.THIS TEST WAS PERFORMED AT:[facility] [place] [phone] TATE MD Blood Venous blood specimen / Unknown 04/03/2025 11:47 AM EDT 04/03/2025 1:01 PM EDT us Jazlyn Addison DO LAB BLOOD ORDERABLES Final R esult Performing Organization Address [facility]/ZIP Co de Phone Number [facility] [address] [place] [phone] * Chlamydia/N. Gonorrhoeae RNA, TMA, Urogenitial (04/03/2025 11:47 AM EDT) [facility] CT PCR NOT DETECTED Not Detect. [facility] Comment:A not detected test result does not exclude the possibilityof infection because test results can be affected byimproper specimen collection, concurrent antibiotic therapy,or the number of organisms in the specimen which may bebelow the sensitivity of the test. As with many diagnostictests, results from the Xpert CT/NG assay should beinterpreted in conjunction with other laboratory andclinical data available to the clinician.Xpert CT/NG performance has not been evaluated in patientsless than 14 years of age. The assay should not be used forthe evaluationof suspected sexual abuse or for other medico-legalindications. Additional testing is recommended in anycircumstance when false positive or false negative resultscould lead to adverse medical, social or psychologicalconsequences. NG PCR NOT DETECTED Not Detect. [facility] Comment:A not detected test result does not exclude the possibilityof infection because test results can be affected byimproper specimen collection, concurrent antibiotic therapy,or the number of organisms in the specimen which may bebelow the sensitivity of the test. As with many diagnostictests, results from the Xpert CT/NG assay should beinterpreted in conjunction with other laboratory andclinical data available to the clinician.Xpert CT/NG performance has not been evaluated in patientsless than 14 years of age. The assay should not be used forthe evaluationof suspected sexual abuse or for other medico-legalindications. Additional testing is recommended in anycircumstance when false positive or false negative resultscould lead to adverse medical, social or psychologicalconsequences. Urine Urethral structure / Unknown 04/03/2025 11:47 AM EDT 04/03/2025 12:59 PM EDT Narrative [facility] - 04/03/2025 3:12 PM EDT Urine us Jazlyn Addison DO LAB MICROBIOLOGY - GENERAL O RDERABLES Final Result [facility] [address] [place] [phone] * Hepatitis B surface antigen, EIA (04/03/2025 11:47 AM EDT) Hepatitis B Surface Ag Negative Negative [facility] Blood Venous blood specimen / Unknown 04/03/2025 11:47 AM EDT 04/03/2025 1:01 PM EDT Jazlyn Addison DO LAB BLOOD ORDERABLES Final R esult Performing Organization Address City/[facility]/ZIP Co de Phone Number [facility] [address] [place] [phone] * Hepatitis B Core Antibody, Total (04/03/2025 11:47 AM EDT) Hepatitis B Core Antibody Nonreactive Nonreactive [facility] Blood Venous blood specimen / Unknown 04/03/2025 11:47 AM EDT 04/03/2025 1:01 PM EDT Jazlyn Jhaverielio DO LAB BLOOD ORDERABLES Final R esult Performing Organization Address [facility] Co de Phone Number [facility] [address] [place] [phone] * RPR (Monitor) with Reflex to??Titer (04/03/2025 11:47 AM EDT) RPR (Monitor) w/Refl Titer NON-REACTI VE NON-REACT [facility] Comment:THIS TEST WAS PERFOR MED AT:[facility] [place] [phone] TATE MD Rapid Plasma Reagin Ab Titer TNP [facility] Blood Venous blood specimen / Unknown 04/03/2025 11:47 AM EDT 04/03/2025 1:01 PM EDT Jazlyn Jhaveridaciabill LAB BLOOD ORDERABLES Final R esult Performing Organization Address [facility] de Phone Number [facility] [address] [place] [phone] * HIV-1/2 Antigen and Antibodies, Fourth Generation, with Reflexes (04/03/2025 11:47 AM EDT) HIV AB/AG Nonreactive Nonreactive [facility] Comment:HIV-1 p24 Ag and/or HIV-1/HIV-2 Ab not detected.A test result that is nonreactive does not exclude thepossibility of exposure to or infection with HIV-1 and/orHIV-2. Nonreactive results in this assay for individualswith prior exposure to HIV-1 and/or HIV-2 may be due toantigen and antibody levels that are below the limit ofdetection of this assay.The Spendji HIV Ag/Ab Combo assay result andsupplemental assay results should be interpreted inconjunction with the patient's clinical presentation,history and other laboratory results. If the results areinconsistent with clinical evidence, additional testing issuggested to confirm the result. Blood Venous blood specimen / Unknown 04/03/2025 11:47 AM EDT 04/03/2025 1:01 PM EDT Jazlyn Addison LAB BLOOD ORDERABLES Final R esult Performing Organization Address [facility] Co de Phone Number [facility] [address] [place] [phone] * Hepatitis B Surface Antibody, Qualitative (04/03/2025 11:47 AM EDT) Pathologist [facility] ~Hepatitis B Surface Antibody NONREACTIVE Nonreactive [facility] Comment:Nonreactive: < 8.00 mIU/mL Blood Venous blood specimen / Unknown 04/03/2025 11:47 AM EDT 04/03/2025 1:01 PM EDT Jazlyn Addison LAB BLOOD ORDERABLES Final R esult Performing Organization Address [facility] Co de Phone Number [facility] [address] [place] [phone] * (ABNORMAL) CBC (04/03/2025 11:47 AM EDT) Pathologist [facility] White Blood Count 10.6 4.8 - 10.8 X10*3/uL [facility] Red Blood Count 4.08(L) 4.20 - 5.50 X10*6/uL [facility] Hemoglobin 11.3(L) 12.0 - 16.0 g/dl [facility] Hematocrit 34.9(L) 37.0 - 47.0 % [facility] Mean Corpuscular Volume 85.5 80.0 - 98.0 fL [facility] Mean Corpuscular Hemoglobin 27.7 27.0 - 33.0 pg [facility] Mean Corpuscular HGB Conc 32.4 31.0 - 35.0 g/dl [facility] Red Cell Distribution Width 13.9 11.0 - 16.0 % [facility] Platelet Count 243 160 - 400 X10*3/uL [facility] Mean Platelet Volume 11.9 9.4 - 12.3 fL [facility] NRBC Pct Auto 0.0 0.0 - 0.2 /100WBC [facility] NRBC Abs Auto 0.000 0.0 - 0.012 X10*3/uL [facility] Blood Venous blood specimen / Unknown 04/03/2025 11:47 AM EDT 04/03/2025 1:01 PM EDT Jazlyn Addison DO LAB BLOOD ORDERABLES Final R esult [facility] [address] [place] [phone] * TSH (04/03/2025 11:47 AM EDT) Thyroid Stimulating Hormone 0.67 0.32 - 4.0 uIU/mL [facility] Comment:TSH 3rd Generation ( [facility]) Blood Venous blood specimen / Unknown 04/03/2025 11:47 AM EDT 04/03/2025 1:01 PM EDT Jazlyn Addison DO LAB BLOOD ORDERABLES Final R esult [facility] [address] [place] [phone] * T4, Free (04/03/2025 11:47 AM EDT) Free T4 (Free Thyroxine) 0.99 0.71 - 1.85 ng/dL [facility] Blood Venous blood specimen / Unknown 04/03/2025 11:47 AM EDT 04/03/2025 1:01 PM EDT Jazlyn Azael DO LAB BLOOD ORDERABLES Final R esult Performing Organization Address [facility] Co de Phone Number [facility] [address] [place] [phone] * (ABNORMAL) Hemoglobin A1c (04/03/2025 11:47 AM EDT) Hemoglobin A1c 6.8(H) <6.0 % [facility] Comment:Hemoglobin A1C Refer ence Range Adults: 4.8 - 6.0 % Non diabetic: < 6.0 % Goal: < 7.0 %Additional Action Suggested: > 8.0 %Note: Hemoglobin A1c results are invalid for patients with abnormal amounts of HbF. Blood transfusions may impact the HbA1c concentration in the patient sample. Estimated Average Glucose 148 mg/dL [facility] Comment:eAG = Estimated ave rage glucose which is %A1C expressed asaverage glucose, using the formula of the [id number] Glucose study (ADAG), Diabetes Care, Vol.31,#8,Jun. 2007 Blood Venous blood specimen / Unknown 04/03/2025 11:47 AM EDT 04/03/2025 1:01 PM EDT Jazlyn Addison DO LAB BLOOD ORDERABLES Final R ult Performing Organization Address [facility]/ZIP Co de Phone Number [facility] [address] [place] [phone] * (ABNORMAL) Hepatic Function Panel (04/03/2025 11:47 AM EDT) Bilirubin, Total 0.3 0.0 - 1.0 mg/dL [facility] Bilirubin, Direct 0.1 0.0 - 0.5 mg/dL [facility] Aspartate Amino Transferase 26 5 - 31 U/L [facility] Alanine Aminotransferase 35(H) 0 - 31 U/L [facility] Total Protein 7.0 6.5 - 8.0 g/dL [facility] Albumin Level 3.9 3.5 - 5.0 g/dL [facility] Alkaline Phosphatase 77 39 - 117 U/L [facility] Blood Venous blood specimen / Unknown 04/03/2025 11:47 AM EDT 04/03/2025 1:01 PM EDT us Jazlyn Addison DO LAB BLOOD ORDERABLES Final R esult Performing Organization Address [facility] Co de Phone Number [facility] [address] [place] [phone] * Lipid Panel, Standard (04/03/2025 11:47 AM EDT) Triglycerides 124 <150 mg/dL [facility] Comment:Desirable Triglyceri de: less than 150 mg/dLBorderline High Triglyceride 150-199 mg/dLHigh Triglyceride: 200-499 mg/dLVery High Triglyceride: greater than or equal to 5OO mg/dL Cholesterol 153 <200 mg/dL [facility] Comment:Desirable Cholestero l: less than 200 mg/dLBorderline High Cholesterol: 200-239 mg/dLHigh Cholesterol: greater than 239 mg/dL LDL Cholesterol Calculated 87 <100 mg/dL [facility] Comment:Desirable LDL: less than 100 mg/dLNear Optimal/Above Optimal LDL: 110- 129 mg/dLBorderline High LDL: 130-159 mg/dLHigh LDL: 160-189 mg/dLVery High LDL: greater than or equal to 190 mg/dL HDL Cholesterol 42 >40 mg/dL [facility] Comment:Desirable HDL: great er than 40 mg/dL Note: This HDL assay may give artificially low results in patients with liver disease. Blood Venous blood specimen / Unknown 04/03/2025 11:47 AM EDT 04/03/2025 1:01 PM EDT us Jazlyn Addison DO LAB BLOOD ORDERABLES Final R esult [facility] [address] [place] [phone] * (ABNORMAL) Basic Metabolic Panel (04/03/2025 11:47 AM EDT) Sodium 139 135 - 145 mmol/L [facility] Potassium 4.4 3.3 - 5.1 mmol/L [facility] Chloride 107 96 - 108 mmol/L [facility] Carbon Dioxide 24 22 - 29 mmol/L [facility] Anion Gap 12 12 - 20 [facility] Urea Nitrogen (BUN) 15 9 - 16 mg/dL [facility] Creatinine, Serum 0.61 0.5 - 1.4 mg/dL [facility] Estimated Glomerular Filt Rate >60 [facility] Comment:Chronic Kidney Disea se: Estimated GFR < 60 mL/min/1.82h7Hegkha Kidney Disease: Estimated GFR < 15 mL/min/1.73m2 Glucose 118(H) 60 - 115 mg/dL [facility] Calcium 8.8 8.4 - 10.2 mg/dL [facility] Blood Venous blood specimen / Unknown 04/03/2025 11:47 AM EDT 04/03/2025 1:01 PM EDT us Jazlyn Addison DO LAB BLOOD ORDERABLES Final R esult [facility] [address] [place] [phone] * BI US Breast Limited Left (09/02/2024 11:00 AM EDT) Anatomical Region Laterality Modality Breast Left Ultrasound 09/02/2024 11:0 0 AM EDT Narrative 09/02/2024 2:42 PM EDT [facility] [address] [place] [address] Ultrasound Report Signed Patient: Ira Newberry MR#: [id number] 57 : 1970 Acct:[id number] Age/Sex: 54 / F ADM Date: 09/02/24 Loc: HO.MAMMO Attending Dr: Ariadna Cason MD Ordering Physician: Ariadna Perales MD Date of Service: 09/02/24 Procedure(s): US breast LT limited mamm only Accession Number(s): [id number] cc: Ariadna Perales MD; Jazlyn Addison DO [...] 09/02/24 1439 DD/ 1100 TD/TT: 09/02/24 1128 Slip Cover Maker: Procedure Note Donotuseinterpreter, Image - 09/02/2024 [facility] [address] [place], [place] [address] Ultrasound Report Signed Patient: Gia Newberry#: [id number] 57 : 1970Acct:[id number] Age/Sex: 54 / FADM Date: 09/02/24 Loc: HO.MAMMO Attending Dr: Ariadna Cason MD Ordering Physician: Ariadna Perales MD Date of Service: 09/02/24 Procedure(s): US breast LT limited mamm only Accession Number(s): [id number] cc: Ariadna Perales MD; Jazlyn Addison DO [...] 09/02/24 1439 DD/ 1100 TD/TT: 09/02/24 1128 Slip Cover Maker: Ariadna Cason MD [facility] PROCEDURES Nidia priyank Result - Final * Cologuard?? colon cancer screening (08/26/2023 12:20 PM EDT) Cologuard Result Negative Negative 09/05/20 6:51 PM EDT [employer] (CLIA #:[id number]) Comment: NEGATIVE TEST RESULT. A negative Cologuard result indicates a low likelihood that a colorectal cancer (CRC) or advanced adenoma (adenomatous polyps with more advanced pre-malignant features) is present. The chance that a person with a negative Cologuard test has a colorectal cancer is less than 1 in 1500 (negative predictive value >99.9%) or has an advanced adenoma is less than 5.3% (negative predictive value 94.7%). These data are based on a prospective cross-sectional study of 10,000 individuals at average risk for colorectal cancer who were screened with both Cologuard and colonoscopy. (Archie Connelly. et al, N Engl J Med 2014;370(14):1884-3508) The normal value (reference range) for this assay is negative. COLOGUARD RE-SCREENING RECOMMENDATION: Periodic colorectal cancer screening is an important part of preventive healthcare for asymptomatic individuals at average risk for colorectal cancer. Following a negative Cologuard result, the [place] Cancer Society and U.S. Multi-Society Task Force screening guidelines recommend a Cologuard re-screening interval of 3 years. References: [place] [employer] Guideline for Colorectal Cancer Screening: https://www.cancer.org/cancer/fytcp-raouob-ifexac/wmnasooxd-piwjlffvy-mmtohlt/ac s-rec ommendations.html.; Jackson CARMEN, Vianey CHO, Khang LINDSEY, Colorectal Cancer Screening: Recommendations for Physicians and Patients from the U.S. Multi-Society Task Force on Colorectal Cancer Screening , Am J Gastroenterology 2017; 112:0410-4417. TEST DESCRIPTION: Composite algorithmic analysis of stool DNA-biomarkers with hemoglobin immunoassay. Quantitative values of individual biomarkers are not [...] (Archie Topete al, N Engl J Med 2014;370(14):3006-8877.) Cologuard may produce a false negative or false positive result (no colorectal cancer or precancerous polyp present at colonoscopy follow up). A negative Cologuard test result does not guarantee the absence of CRC or advanced adenoma (pre-cancer). The current Cologuard screening interval is every 3 years. ([place] [employer] Society and U.S. Multi-Society Task Force). Cologuard performance data in a 10,000 patient pivotal study using colonoscopy as the reference method can be accessed at the following location: www.[employer].HireHive/results. Additional description of the Cologuard test process, warnings and precautions can be found at www.FileThisrd.com. Stool specimen (specimen) 08/26/2023 12:20 PM EDT 08/29/2023 6:48 AM EDT Jazlyn Addison DO LAB MOLECULAR DIAGNOSTICS OR DERABLES Final Result [employer] (CLIA #:[id number]) [address] [place] [address], * Hm Pap Smear (07/22/2021) Pap Negative for intraephithelial lesion or malignancy Negative for intraephithelial lesion or malignancy, Other HPV Undetected Historical Provider MD HEALTH MAINTENANCE Final Result from Last 3 Months or Most Recently Relevant to Health Maintenance Insurance [employer] C3 Care Teams Ski Binding Fitter And Repairer Relationship Specialty Start Date End Date Jazlyn Addison DO [address] [place] [phone] PCP - General Family Medicine 03/01/12
--- OUTSIDE RECORDS SUMMARY | 2025-06-27 13:07 | XMS_ITS | Encounter Summary ---
Author Organization [employer] Address [address] [facility] 7t [place] [address] Care Team Providers Care Mortgage Loan Coordinator Name Role Phone Jazlyn Addison DO Primary Care Provider [phone] Reason for Visit * Reason Onset Date Comments Nurse Triage 06/26/2025 Encounter Details Date Type Department Care Team ([facility] st Contact Info) Description 06/26/2025 Telephone [facility] [address] [place], [place] [phone] Jazlyn Addison DO [address] [place], [place] [phone] Nurse Triage Social History Tobacco Use Types Packs/Day Years [...] AM EDT documented as of this encounter Miscellaneous Notes * Telephone Encounter - Amita Kurtz RN - 06/26/2025 12:33 PM EDT No pr intern needed as this grant writer speaks Greenlandic. Call returned to Ira Newberry to triage below at [phone]. Reports having chest pain x 1 month. Per pt has already been seen in [facility] for similar. Per pt pain is left sided chest pain and radiates to head. Also affecting pt able to turn head to right side. No SOB or dizziness. Pt states given meloxicam at [facility] and denies an improvement. Pt offered appointment today pt declines due to having to find care for child. Agrees to visit tomorrow.Reviewed home care advise, ER precautions and reasons to call back. Protocol Used: Chest Pain (Adult) Protocol-Based Disposition: See in Office or Video Visit Today Override (Final) Disposition: See in Office or Video Visit Today or Tomorrow Override Reason: Caller refused suggested disposition Future Appointments Date Time Provider Department Center 06/27/2025 10:45 AM Nenita James MD MEDICINE [facility] Insurance verified as active per Real Time Eligibility in [facility]. Video visit offer not recorded Positive Triage Question: * All other patients with chest pain (Exception: Fleeting chest pain lasting a few seconds.) * All higher-acuity triage questions were negative Care Advice Discussed: * Reasons To Call Back - Chest pain increases in frequency, duration or severity - Chest pain lasts over 5 minutes - Chest pains persist over 3 days - Difficulty breathing or unusual sweating occurs - Fever over 100.4 F (38.0 C) - You become worse * Telephone Encounter - Dulce Tapia - 06/26/2025 12:10 PM EDT Symptom: Chest Pain - Adult Outcome: Schedule an urgent appointment (within 1 hour) or talk to a nurse or provider soon Reason: Caller denied all higher acuity questions The caller accepted this outcome. Contact pt at [phone] (kazakh) documented in this encounter Plan of Treatment Upcoming Encounters Date Type Department Care Team (Late st Contact Info) Description 07/31/2025 10:30 AM EDT Office Visit [facility] [address] [place] [address] Jazlyn Addison DO [address] [place] [address] documented as of this encounter Visit Diagnoses Not on filedocumented in this encounter Additional Health Concerns Assessment Noted Time PHQ-9 Depression Total Score: 2 04/18/20 24 10:31 AM EDT documented as of this encounter Care Teams Mortgage Loan Coordinator Relationship Specialty Start Date End Date Jazlyn Addison DO [address] [place] [address] PCP - General Family Medicine 03/01/12 documented as of this encounter
--- OUTSIDE RECORDS SUMMARY | 2025-06-27 13:07 | XMS_ITS | Clinical Summary ---
Author Organization [employer] [facility] ity Address [address] [place] [address] Care Team Providers Care Curriculum Writer Name Role Phone Unavailable Primary Care Provider [...] Vaccine ( - 2023-2 5 season) 2024 Depression Screening 11/02/2024 Influenza Vaccine (#1) 2025 HIB Vaccines Aged Out No longer [...]
--- OUTSIDE RECORDS SUMMARY | 2025-06-27 13:07 | XMS_ITS | Encounter Summary ---
Author Organization [employer] Address [address] [place] [address] 7t [place] [address] Care Team Providers Care Vice President Of Nursing Name Role Phone Jazlyn Addison DO Primary Care Provider Encounter Details Date Type Department Care Team (Late st Contact Info) Description 08/07/[address] [address] Cristela Villalobos Social History Tobacco Use Types [...] as of this encounter Plan of Treatment Upcoming Encounters Date Type Department Care Team (Late st Contact Info) Description 07/31/2025 10:30 AM EDT Office Visit [facility] [address] [place] [phone] Jazlyn Addison DO [address] [place] [address] documented as of this encounter Procedures Procedure Name Priority Date/Time Associated Diagnosis Comments PAP/HPV Routine 07/22/2021 documented in this encounter Results * Pap Smear (07/22/2021) Pap Negative for intraephithelial lesion or malignancy Negative for intraephithelial lesion or malignancy, Other HPV Undetected us Historical Provider MD HEALTH MAINTENANCE Final Result documented in this encounter Visit Diagnoses Not on filedocumented in this encounter Care Teams Vice President Of Nursing Relationship Specialty Start Date End Date Jazlyn Addison DO [address] [place] [address] PCP - General Family Medicine 03/01/12 documented as of this encounter
--- OUTSIDE RECORDS SUMMARY | 2025-06-27 13:07 | XMS_ITS | Encounter Summary ---
Author Organization [employer] Address [address] [facility] 7t [place] [address] Care Team Providers Care Pricing Supervisor Name Role Phone Jazlyn Addison DO Primary Care Provider + [phone] Reason for Visit * Reason Comments Med Refill Encounter Details Date Type Department Care Team ([facility] st Contact Info) Description 12/26/2024 Refill [facility] [address] [place], [place] [phone] Sharee Diana MD [address] [place], [place] [phone] Social History Tobacco Use Types Packs/Day Years [...] Description 07/31/2025 10:30 AM EDT Office Visit [facility] [address] [place] [address] Jazlyn Addison DO [address] [place] [address] documented as of this encounter Visit Diagnoses Not on filedocumented in this encounter Additional Health Concerns Assessment Noted Time PHQ-9 Depression Total Score: 2 04/18/20 24 10:31 AM EDT documented as of this encounter Care Teams Pricing Supervisor Relationship Specialty Start Date End Date Jazlyn Addison DO [address] [place] [address] PCP - General Family Medicine 03/01/12 documented as of this encounter
--- OUTSIDE RECORDS SUMMARY | 2025-06-27 13:08 | XMS_ITS | Encounter Summary ---
Author Organization [employer] Address [address] [facility] 7t [place] [address] Care Team Providers Care Release Of Information Specialist Name Role Phone Jazlyn Addison DO Primary Care Provider [phone] Reason for Visit * Reason Onset Date Comments Referral 06/27/2025 Encounter Details Date Type Department Care Team ([facility] st Contact Info) Description 06/27/2025 Telephone [facility] [address] [place], [place] [phone] Jazlyn Addison DO [address] [place], [place] [phone] Referral Social History Tobacco Use Types Packs/Day Years [...] encounter Miscellaneous Notes * Telephone Encounter - Iesha Hernandez - 06/27/2025 12:20 PM EDT Pt walked in requesting referral for optomologist [facility] located in [address] [place] [address]. Pt has apt scheduled for this Thursday06/30/25. documented in this encounter Plan of Treatment Upcoming Encounters Date Type Department Care Team (Late st Contact Info) Description 07/31/2025 10:30 AM EDT Office Visit [facility] [address] [place] [address] Jazlyn Addison DO [address] [place] [address] documented as of this encounter Visit Diagnoses Not on filedocumented in this encounter Additional Health Concerns Assessment Noted Time PHQ-9 Depression Total Score: 2 04/18/20 24 10:31 AM EDT documented as of this encounter Care Teams Release Of Information Specialist Relationship Specialty Start Date End Date Jazlyn Addison DO [address] [place] [address] PCP - General Family Medicine 03/01/12 documented as of this encounter
--- OUTSIDE RECORDS SUMMARY | 2025-06-27 13:08 | XMS_ITS | Encounter Summary ---
Author Organization [employer] Address [address] [facility] 7t [place] [address] Care Team Providers Care Tapper Shank Name Role Phone Jazlyn Addison DO Primary Care Provider [phone] Encounter Details Date Type Department Care Team ([facility] st Contact Info) Description 11/28/2024 Telephone [facility] [address] [place], [place] [phone] Jazlyn Addison DO [address] [place], [place] [phone] Social History Tobacco Use Types Packs/Day Years [...] Description 07/31/2025 10:30 AM EDT Office Visit [facility] [address] [place] [address] Jazlyn Addison DO [address] [place] [address] documented as of this encounter Visit Diagnoses Not on filedocumented in this encounter Additional Health Concerns Assessment Noted Time PHQ-9 Depression Total Score: 2 04/18/20 24 10:31 AM EDT documented as of this encounter Care Teams Tapper Shank Relationship Specialty Start Date End Date Jazlyn Addison DO [address] [place] [address] PCP - General Family Medicine 03/01/12 documented as of this encounter
--- OUTSIDE RECORDS SUMMARY | 2025-06-27 13:08 | XMS_ITS | Encounter Summary ---
Author Organization [employer] Address [address] [facility] 7t [place] [address] Care Team Providers Care Ophthalmic Medical Assistant Name Role Phone Jazlyn Addison DO Primary Care Provider Encounter Details Date Type Department Care Team (Latest Contact Info) Description 06/27/2025 Travel Social History Tobacco Use Types Packs/Day Years [...] Description 07/31/2025 10:30 AM EDT Office Visit [facility] [address] [place] [address] Jazlyn Addison DO [address] [place] [address] documented as of this encounter Visit Diagnoses Not on filedocumented in this encounter Additional Health Concerns Assessment Noted Time PHQ-9 Depression Total Score: 2 04/18/20 24 10:31 AM EDT documented as of this encounter Care Teams Ophthalmic Medical Assistant Relationship Specialty Start Date End Date Jazlyn Addison DO [address] [place] [address] PCP - General Family Medicine 03/01/12 documented as of this encounter
== END 2025-06-27 12:16 | disposition home or self-care (01) ==
LOC: HO.HHCX 12:15
PROVIDERS: PCP Family Medicine; Visit Provider Family Medicine
DX: R07.9 Chest pain, unspecified (principal); M54.2 Cervicalgia
CPT/HCPCS: 71046; 72040

== ENCOUNTER → 2025-06-27 12:27 | Outpatient (BNV) | payer MEDICAID, SELFPAY | PROVIDERS: PCP Family Medicine; Visit Provider Radiology Diagnostic Radiology | DX: M54.2 Cervicalgia (principal); R07.9 Chest pain, unspecified | CPT/HCPCS: 71046; 72040 ==

== ENCOUNTER → 2025-07-05 08:00 | Outpatient (BNV) | payer MEDICAID, SELFPAY | PROVIDERS: PCP Family Medicine; Visit Provider Internal Medicine | DX: N64.4 Mastodynia (principal) | CPT/HCPCS: 76642; 77062; 77066 ==

== ENCOUNTER 2025-07-05 08:26 | Outpatient (REF) | payer MEDICAID, SELFPAY ==
--- NOTE | ~2025-07-05 | US_ITS ---
EXAMINATION: MM DIAGNOSTIC DIGITAL BREAST TOMOSYNTHESIS, BILATERAL Limited left breast ultrasound. CLINICAL INFORMATION: 55-year-old female with left breast pain. COMPARISON: Mammography: Comparison is made with relevant prior exams. TECHNIQUE: Digital breast mammography with tomosynthesis is performed in both the craniocaudal and mediolateral oblique views along with computer-aided detection (CAD). FINDINGS: There are scattered areas of fibroglandular density (ACR BI-RADS breast composition Category b). Left: [place] marker in the upper outer left breast at site of patient's pain without underlying abnormal finding. There are no significant masses, abnormal calcifications, or other abnormalities. Targeted color Doppler ultrasound scanning in the area of patient's pain from 11-1 o'clock demonstrates normal fibronodular breast tissue. There is an incidental hypoechoic oval parallel solid mass versus complicated cyst at 1:00 6 cm from the nipple measuring 4 x 3 x 4 mm. Right: Asymmetry lateral right breast middle to posterior depth on CC view is unchanged dating back to 2009 No suspicious masses calcifications or other abnormal findings. Results are provided to the patient at time of visit by the technologist. US/US breast LT limited mamm only IMPRESSION: Right: Negative. Left: 1. No mammographic or sonographic abnormal finding to account for the patient's left breast pain. Recommend clinical evaluation follow-up. 2. Solid mass versus complicated cyst at 1:00 6 cm from the nipple. Recommend 6 month follow-up ultrasound for further evaluation of stability. ASSESSMENT: BI-RADS BI-RADS 3 - Probably benign finding(s) - 6 month follow-up suggested RECOMMENDATION: 6 Month F/U This patient's information was entered into a reminder system with a target due date for their next mammogram. Electronically signed by: Samia Salazar DO 07/05/2025 11:44 AM EDT
--- OUTSIDE RECORDS SUMMARY | 2025-07-05 08:53 | XMS_ITS | Clinical Summary ---
Author Organization [employer] [facility] ity Address [address] [place] [address] Care Team Providers Care Roller Picker Name Role Phone Unavailable Primary Care Provider [...]
--- OUTSIDE RECORDS SUMMARY | 2025-07-05 08:53 | XMS_ITS | Encounter Summary ---
Author Organization [employer] Address [address] [place] [address] 7t [place] [address] Care Team Providers Care Head Grinder Name Role Phone Jazlyn Addison Primary Care Provider Reason for Referral * Consultation (Urgent) - Pending Review Specialty Diagnoses / Procedures Referred By Nilson pleitez Referred To Contact Physical Therapy Diagnoses Neck pain on left side Acute pain of left shoulder Nenita James MD [address] [place] [address] Phone: tel: fax: Referral ID Status Reason Start Date Expiration Date Visits Requested Visits Authorized [id number] Pending Review Specialty Services Required 07/04/2025 07/04/2026 1 1 Encounter Details Date Type Department Care Team (Late st Contact Info) Description 07/04/2025 Orders Only [facility] [address] [place] [address] Nenita James MD [address] [place], [place] [phone] Neck pain on left side (Primary Dx); Acute pain of left shoulder Social History Tobacco Use Types Packs/Day Years [...] Care Team (Late st Contact Info) Description 07/21/2025 10:00 AM EDT Office Visit [facility] [address] [place] [address] Jazlyn Addison DO [address] [place] [address] Scheduled Referrals Name Type Priority Associated Diagnoses Orde r Schedule Referral to Physical Therapy Outpatient Referral Urgent Neck pain on left side Acute pain of left shoulder Expected: 07/04/2025 (Approximate), Expires: 07/04/2026 documented as of this encounter Visit Diagnoses Diagnosis Neck pain on left side- Primary Acute pain of left shoulder documented in this encounter Additional Health Concerns Assessment Noted Time PHQ-9 Depression Total Score: 2 04/18/20 24 10:31 AM EDT documented as of this encounter Care Teams Head Grinder Relationship Specialty Start Date End Date Jazlyn Addison DO [address] [place] [address] PCP - General Family Medicine 03/01/12 documented as of this encounter
--- OUTSIDE RECORDS SUMMARY | 2025-07-05 08:53 | XMS_ITS | Encounter Summary ---
Author Organization [employer] Address [address] [facility] 7t [place] [address] Care Team Providers Care Automobile Body Repair Supervisor Name Role Phone Jazlyn Addison DO Primary Care Provider [phone] Encounter Details Date Type Department Care Team (Late st Contact Info) Description 11/28/2024 Telephone [facility] [address] [place], [place] [phone] Jazlyn Addison DO [address] [place], [place] [phone] Social History Tobacco Use Types Packs/Day Years [...] Description 07/21/2025 10:00 AM EDT Office Visit [facility] [address] [place] [address] Jazlyn Addison DO [address] [place] [address] documented as of this encounter Visit Diagnoses Not on filedocumented in this encounter Additional Health Concerns Assessment Noted Time PHQ-9 Depression Total Score: 2 04/18/20 24 10:31 AM EDT documented as of this encounter Care Teams Automobile Body Repair Supervisor Relationship Specialty Start Date End Date Jazlyn Addison DO [address] [place] [address] PCP - General Family Medicine 03/01/12 documented as of this encounter
--- OUTSIDE RECORDS SUMMARY | 2025-07-05 08:53 | XMS_ITS | Clinical Summary ---
Author Organization [employer] Address [address] [facility] 7t [place] [address] Care Team Providers Care Blow Off Worker Name Role Phone Jazlyn Addison DO Primary [...] Encounters Date Type Department Care Team Description 07/04/2025 Orders Only [facility] [place] [address] Nenita James MD Neck pain on left side (Primary Dx); Acute pain of left shoulder 07/04/2025 Travel 07/04/[address] [facility] MED[facility]INE [address] [place] [address] Jazlyn Addison DO Nurse Triage 07/04/[address] [facility] [place] [address] Jazlyn Addison DO Results 06/27/2025 10:45 AM EDT Office Visit [facility] [address] [place] [address] Nenita James MD Neck pain on left side (Primary Dx); Breast pain, left; Left-sided chest pain; Acute pain of left shoulder; Dietary counseling; Exercise counseling; Class 1 obesity due to excess calories with serious comorbidity and body mass index (BMI) of 32.0 to 32.9 in adult 06/27/2025 Results Follow-Up [facility] [address] [place] [address] Nenita James MD XR CERVICAL SPINE 3V 06/27/[address] [address] Jazlyn Addison DO Referral 06/27/2025 Travel 06/26/[address] [address] Jazlyn Addison DO Nurse Triage 05/22/2025 10:20 AM EDT Office Visit [facility] [address] [place] [address] Sharee Diana MD Acute costochondritis (Primary Dx); Nasal congestion 05/03/[address] [address] Jazlyn Addison DO telephone call 04/18/[address] [address] Jazlyn Addison DO Primary hypertension from Last 3 Months Immunizations Immunization Administration [...] Description 07/21/2025 10:00 AM EDT Office Visit [facility] [address] [place], [place] [phone] Jazlyn Addison DO [address] [place] [address] Health Maintenance Due Date Last Done Comments [...] (2 of 2 - PCV) 07/29/2019 07/29/2018 Depression Screening 04/18/2025 04/18/2024, 04/18/20 24 SDOH Screening 04/18/2025 04/18/2024 COVID-19 Vaccine ( season) 2025 02/03/2023, 11/27/2021, 04/08/2021, Additional history exists Influenza Vaccine (#1) 2025 4, 08/07/2023, 07/29/2022, Additional history exists Diabetes: Hemoglobin A1C 07/04/2025 025, 04/03/2025, 09/12/2024, Additional history exists Mammogram 09/02/2025 09/02/2024, 11/0 11/2023, 12/02/2023, Additional history exists Disability Screening 04/03/2026 [...] Procedure Name Priority Date/Time Associated Diagnosis Comments XR CERVICAL SPINE 3V Routine 06/27/2025 12:05 PM EDT Neck pain on left side XR CHEST 2 VIEWS Routine 06/27/2025 12:0 2 PM EDT Left-sided chest pain POCT RAPID STREP A Routine 05/22/2025 10 [...] Recently Relevant to Health Maintenance Results * XR CERVICAL SPINE 3V (06/27/2025 12:05 PM EDT) Anatomical Region Laterality Modality Abdomen Radiographic Radha ging 06/27/2025 12:0 5 PM EDT Narrative 06/27/2025 1:20 PM EDT [address] [address] XRay Report Signed Patient: Ira Newberry MR#: [id number] [birth year] : 1970 Acct:[id number] Age/Sex: 55 / F ADM Date: 06/27/25 [facility] Att[facility] Dr: Nenita James MD Ordering Physician: Nenita James MD Date of Service: 06/27/25 Procedure(s): XR cervical spine 3V Accession Number(s): [id number] cc: Jazlyn Addison DO; Nenita James MD EXAMINATION: XR CERVICAL SPINE 2-3 VIEWS HISTORY: neck pain COMPARISON: Comparison is made with the prior examination dated 06/28/2020. FINDINGS: AP, lateral, and open-mouth odontoid views of the cervical spine are submitted. Osseous mineralization is normal. Seven cervical vertebral bodies are identified maintaining normal height without evidence of fracture or subluxation. There is straightening of the normal cervical lordosis. There is moderate degenerative disc disease with disc space narrowing and osteophyte formation. The odontoid and lateral masses of C1 are intact. There is no prevertebral soft tissue swelling. XR/XR cervical spine 3V IMPRESSION: Straightening of the normal cervical lordosis. Moderate degenerative disc disease. Electronically signed by: Loi Reyes MD 06/27/2025 01:17 PM EDT Dictated By: Loi Reyes MD Signed By: <Electronically signed by Loi Reyes MD in OV> 06/27/25 1317 DD/ 1205 TD/TT: 06/27/25 1205 Salvage Mend Worker: Procedure Note Donotuseinterpreter, Image - 06/27/2025 [place] [id number] XRay Report Signed Patient: Ira Newberry#: [id number] 57 : 1970Acct:[id number] Age/Sex: 55 / FADM Date: 06/27/25 Loc: [facility] Attending Dr: Nenita James MD Ordering Physician: Nenita James MD Date of Service: 06/27/25 Procedure(s): XR cervical spine 3V Accession Number(s): [id number] cc: Jazlyn Addison DO; Nenita James MD EXAMINATION: XR CERVICAL SPINE 2-3 VIEWS HISTORY: neck pain COMPARISON: Comparison is made with the prior examination dated 06/28/2020. FINDINGS: AP, lateral, and open-mouth odontoid views of the cervical spine are submitted. Osseous mineralization is normal. Seven cervical vertebral bodies are identified maintaining normal height without evidence of fracture or subluxation. There is straightening of the normal cervical lordosis. There is moderate degenerative disc disease with disc space narrowing and osteophyte formation. The odontoid and lateral masses of C1 are intact. There is no prevertebral soft tissue swelling. XR/XR cervical spine 3V IMPRESSION: Straightening of the normal cervical lordosis. Moderate degenerative disc disease. Electronically signed by: Loi Reyes MD 06/27/2025 01:17 PM EDT RP Dictated By: Loi Reyes MD Signed By: <Electronically signed by Loi Reyes MD in OV> 06/27/25 1317 DD/ 1205 TD/TT: 06/27/25 1205 Salvage Mend Worker: Nenita James MD IMG XR PROCEDURES Final Result * XR Chest 2 Views (06/27/2025 12:02 PM EDT) Anatomical Region Laterality Modality Chest Radiographic Radha ging 06/27/2025 12:0 2 PM EDT Narrative 06/27/2025 1:22 PM EDT [address] [address] XRay Report Signed Patient: Ira Newberry MR#: [id number] 57 : 1970 Acct:[id number] Age/Sex: 55 / F ADM Date: 06/27/25 Loc: [facility] Attending Dr: Nenita James MD Ordering Physician: Nenita James MD Date of Service: 06/27/25 Procedure(s): XR chest 2V Accession Number(s): [id number] cc: Jazlyn Addison DO; Nenita James MD EXAMINATION: XR CHEST CLINICAL INFORMATION: left chest pain, radiating to the back COMPARISON: 02/03/2025 TECHNIQUE: 2 views of the chest were obtained. FINDINGS: The cardiac, hilar, and mediastinal contours are normal. The lungs are clear bilaterally. There is no pneumothorax or pleural effusion. There is no focal osseous or soft tissue abnormality. There are cholecystectomy clips present. XR/XR chest 2V IMPRESSION: Normal chest. Electronically signed by: Jimmy Hidalgo MD 06/27/2025 01:19 PM EDT RP Dictated By: Jimmy Hidalgo MD Signed By: <Electronically signed by Jimmy Hidalgo MD in OV> 06/27/25 1319 DD/ 1202 TD/TT: 06/27/251204 Salvage Mend Worker: Procedure Note Donotuseinterpreter, Image - 06/27/[address] [address] XRay Report Signed Patient: Gia Newberry#: [id number] 57 : 1970Acct:[id number] Age/Sex: 55 / FADM Date: 06/27/25 [facility]: Nenita James MD Ordering Physician: Nenita James MD Date of Service: 06/27/25 Procedure(s): XR chest 2V Accession Number(s): [id number] cc: Jazlyn Addison DO; Nenita James MD EXAMINATION: XR CHEST CLINICAL INFORMATION: left chest pain, radiating to the back COMPARISON: 02/03/2025 TECHNIQUE: 2 views of the chest were obtained. FINDINGS: The cardiac, hilar, and mediastinal contours are normal. The lungs are clear bilaterally. There is no pneumothorax or pleural effusion. There is no focal osseous or soft tissue abnormality. There are cholecystectomy clips present. XR/XR chest 2V IMPRESSION: Normal chest. Electronically signed by: Jimmy Hidalgo MD 06/27/2025 01:19 PM EDT RP Dictated By: Jimmy Hidalgo MD Signed By: <Electronically signed by Jimmy Hidalgo MD in OV> 06/27/25 1319 DD/ 1202 TD/TT: 06/27/251204 Salvage Mend Worker: us Nenita James MD IMG XR PROCEDURES Final Result * POCT COVID-19 Ag E[place]erson ID NOW (05/22/2025 10:16 AM EDT) [facility] Coronavirus Antigen PCR Negative Negative, Indeterminate, None Detected, Invalid, Specimen unsatisfactory for evaluation, Weakly Positive, 2+ Swab 05/22/2025 10:1 6 AM EDT Result [facility] Sharee Diana MD POINT OF CARE TEST ENTER /EDIT ORDERABLES Final Result * POCT rapid strep A manually resulted (05/22/2025 10:16 AM EDT) [facility] Rapid Strep A Screen Negative Negative, None Detected Swab 05/22/2025 10:1 6 AM EDT Result [facility] Sharee Diana MD POINT OF CARE TEST ENTER /EDIT ORDERABLES Final Result * (ABNORMAL) POCT HGB A1C (04/03/2025 11:54 AM EDT) [facility] Hemoglobin A1C 10,230,191 .0(A) 4.0 - 6.0 % QC Media Lot # ,[id number] Lot# Expiration Date Blood 04/03/2025 11:5 4 AM EDT Result [facility] Jazlyn Addison DO POINT OF CARE TEST ENTER/NIDIA T ORDERABLES Final Result * Hepatitis C Antibody with Reflex to HCV, RNA, Quantitative, Real-Time PCR (04/03/2025 11:47 AM EDT) [facility] Hepatitis C Antibody Nonreactive Nonreactive [facility] Comment:Antibodies to HCV no t detected; does not exclude early acuteHCV infection. Blood Venous blood specimen / Unknown 04/03/2025 11:47 AM EDT 04/03/2025 1:01 PM EDT Result [facility] Jazlyn Jurcsak DO LAB BLOOD ORDERABLES Final R esult Performing Organization Address [facility]/ZIP Co de Phone Number [facility] [address] [place] [phone] * HIV-1/2 Antigen and Antibodies, Fourth Generation, with Reflexes (04/03/2025 11:47 AM EDT) HIV AB/AG Nonreactive Nonreactive [facility] Comment:HIV-1 p24 Ag and/or HIV-1/HIV-2 Ab not detected.A test result that is nonreactive does not exclude thepossibility of exposure to or infection with HIV-1 and/orHIV-2. Nonreactive results in this assay for individualswith prior exposure to HIV-1 and/or HIV-2 may be due toantigen and antibody levels that are below the limit ofdetection of this assay.The Knowmia HIV Ag/Ab Combo assay result andsupplemental assay results should be interpreted inconjunction with the patient's clinical presentation,history and other laboratory results. If the results areinconsistent with clinical evidence, additional testing issuggested to confirm the result. Blood Venous blood specimen / Unknown 04/03/2025 11:47 AM EDT 04/03/2025 1:01 PM EDT us Jazlyn Addison DO LAB BLOOD ORDERABLES Final R esult Performing Organization Address [facility]/ZIP Co de Phone Number [facility] [address] [place] [phone] [phone] * Lipid Panel, Standard (04/03/2025 11:47 AM EDT) Triglycerides 124 <150 mg/dL [facility] Comment:Desirable Triglyceri de: less than 150 mg/dLBorderline High Triglyceride 150-199 mg/dLHigh Triglyceride: 200-499 mg/dLVery High Triglyceride: greater than or equal to 5OO mg/dL Cholesterol 153 <200 mg/dL [facility] Comment:Desirable Cholestero l: less than 200 mg/dLBorderline High Cholesterol: 200-239 mg/dLHigh Cholesterol: greater than 239 mg/dL LDL Cholesterol Calculated 87 <100 mg/dL [facility] Comment:Desirable LDL: less than 100 mg/dLNear Optimal/Above Optimal LDL: 110- 129 mg/dLBorderline High LDL: 130-159 mg/dLHigh LDL: 160-189 mg/dLVery High LDL: greater than or equal to 190 mg/dL HDL Cholesterol 42 >40 mg/dL [facility] Comment:Desirable HDL: great er than 40 mg/dL Note: This HDL assay may give artificially low results in patients with liver disease. Blood Venous blood specimen / Unknown 04/03/2025 11:47 AM EDT 04/03/2025 1:01 PM EDT Jazlyn Addison DO LAB BLOOD ORDERABLES Final R esult [facility] [address] [place] [phone] * BI US Breast Limited Left (09/02/2024 11:00 AM EDT) Anatomical Region Laterality Modality Breast Left Ultrasound 09/02/2024 11:0 0 AM EDT Narrative 09/02/2024 2:42 PM EDT [facility] [address] [place] [address] Ultrasound Report Signed Patient: Ira Newberry MR#: [id number] 57 : 1970 Acct:[id number] Age/Sex: 54 / F ADM Date: 09/02/24 Loc: HO.MAMMO Attending Dr: Ariadna Cason MD Ordering Physician: Ariadna Perales MD Date of Service: 09/02/24 Procedure(s): US breast LT limited mamm only Accession Number(s): [id number] cc: Ariadna Perales MD; Jazlyn Addison DO [...] 09/02/24 1439 DD/ 1100 TD/TT: 09/02/24 1128 Salvage Mend Worker: Procedure Note Donotuseinterpreter, Image - 09/02/[facility] [address] [place] [address] Ultrasound Report Signed Patient: Ira Newberry#: [id number] 57 : 1970Acct:[id number] Age/Sex: 54 / FADM Date: 09/02/24 Loc: HO.MAMMO Attending Dr: Ariadna Cason MD Ordering Physician: Ariadna Perales MD Date of Service: 09/02/24 Procedure(s): US breast LT limited mamm only Accession Number(s): [id number] cc: Ariadna Perales MD; Jazlyn Addison DO [...] 09/02/24 1439 DD/ 1100 TD/TT: 09/02/24 1128 Salvage Mend Worker: us Ariadna Cason MD IMG US PROCEDURES Nidia priyank Result - Final * Cologuard?? colon cancer screening (08/26/2023 12:20 PM EDT) Cologuard Result Negative Negative 09/05/20 6:51 PM EDT [employer] (CLIA #:[id number]) Comment: NEGATIVE TEST RESULT. A negative Cologuard [...] Galindo et al, N Engl J Med 2014;370(14):6249-0303) The normal value (reference range) for this assay is negative. COLOGUARD RE-SCREENING RECOMMENDATION: Periodic colorectal cancer screening is an important part of preventive healthcare for asymptomatic individuals at average risk for colorectal cancer. Following a negative Cologuard result, the [place] [employer] Society and U.S. Multi-Society Task Force screening guidelines recommend a Cologuard re-screening interval of 3 years. References: [place] [employer] Guideline for Colorectal Cancer Screening: https://www.cancer.org/cancer/zaoyx-mqojbf-xdvtox/ewcjvzaed-sijfywwnv-ihgnwni/ac s-rec ommendations.html.; Jackson CARMEN, Vianey CHO, Khang DockeryK, Colorectal Cancer Screening: Recommendations for Physicians and Patients from the U.S. Multi-Society Task Force on Colorectal Cancer Screening , Am J Gastroenterology 2017; 112:6861-0986. TEST DESCRIPTION: Composite algorithmic analysis of stool [...] Connelly. et al, N Engl J Med 2014;370(14):8553-3653.) Cologuard may produce a false negative or false positive result (no colorectal cancer or precancerous polyp present at colonoscopy follow up). A negative Cologuard test result does not guarantee the absence of CRC or advanced adenoma (pre-cancer). The current Cologuard screening interval is every 3 years. ([place] [employer] and U.S. Multi-Society Task Force). Cologuard performance data in a 10,000 patient pivotal study using colonoscopy as the reference method can be accessed at the following location: www.NoteWagon/results. Additional description of the Cologuard test process, warnings and precautions can be found at www.MundoHablado.comoguard.com. Stool specimen (specimen) 08/26/2023 12:20 PM EDT 08/29/2023 6:48 AM EDT Jazlyn Addison DO LAB MOLECULAR DIAGNOSTICS OR DERABLES Final Result [employer] [facility] (CLIA #:[id number]) [address] [place] [address], * Hm Pap Smear (07/22/2021) Pap Negative for intraephithelial lesion or malignancy Negative for intraephithelial lesion or malignancy, Other HPV Undetected us Historical Provider HEALTH MAINTENANCE Final Result from Last 3 Months or Most Recently Relevant to Health Maintenance Insurance [facility] C3 Care Teams Blow Off Worker Relationship Specialty Start Date End Date Jazlyn Addison DO [address] [place] [address] PCP - General Family Medicine 03/01/12
--- OUTSIDE RECORDS SUMMARY | 2025-07-05 08:53 | XMS_ITS | Encounter Summary ---
Author Organization [employer] Address [address] [place] [address] [address]t [place] [address] Care Team Providers Care Field Servicer Name Role Phone Jazlyn Addison DO Primary Care Provider Encounter Details Date Type Department Care Team (Late st Contact Info) Description 08/07/[address] [address] Cristela Villalobos Social History Tobacco Use Types [...] Description 07/21/2025 10:00 AM EDT Office Visit [facility] [address] [place] [address] Jazlyn Addison DO [address] [place] [address] documented as of this encounter Procedures Procedure Name Priority Date/Time Associated Diagnosis Comments PAP/HPV Routine 07/22/2021 documented in this encounter Results * Pap Smear (07/22/2021) Pap Negative for intraephithelial lesion or malignancy Negative for intraephithelial lesion or malignancy, Other HPV Undetected us Historical Provider MD HEALTH MAINTENANCE Final Result documented in this encounter Visit Diagnoses Not on filedocumented in this encounter Care Teams Field Servicer Relationship Specialty Start Date End Date Jazlyn Addison DO [address] [place] [address] PCP - General Family Medicine 03/01/12 documented as of this encounter
--- OUTSIDE RECORDS SUMMARY | 2025-07-05 08:53 | XMS_ITS | Encounter Summary ---
Author Organization [employer] Address [address] [facility] 7t [place] [address] Care Team Providers Care Line Analyst Name Role Phone Jazlyn Addison DO Primary Care Provider + [phone] Reason for Visit * Reason Comments Med Refill Encounter Details Date Type Department Care Team ([facility] st Contact Info) Description 12/26/2024 Refill [facility] [address] [place], [place] [phone] Sharee Diana MD [address] [place], [place] [phone] Social History Tobacco Use Types Packs/Day Years [...] 10:00 AM EDT Office Visit [facility] [address] [place] [address] Jazlyn Addison DO [address] [place] [address] documented as of this encounter Visit Diagnoses Not on filedocumented in this encounter Additional Health Concerns Assessment Noted Time PHQ-9 Depression Total Score: 2 04/18/20 24 10:31 AM EDT documented as of this encounter Care Teams Line Analyst Relationship Specialty Start Date End Date Jazlyn Addison DO [address] [place] [address] PCP - General Family Medicine 03/01/12 documented as of this encounter
--- OUTSIDE RECORDS SUMMARY | 2025-07-05 08:53 | XMS_ITS | Encounter Summary ---
Author Organization [employer] Address [address] [facility] 7t [place] [address] Care Team Providers Care Climatology Professor Name Role Phone Jazlyn Addison DO Primary Care Provider [phone] Encounter Details Date Type Department Care Team (Latest Contact Info) Description 07/04/2025 Travel Social History Tobacco Use Types Packs/Day [...] Description 07/21/2025 10:00 AM EDT Office Visit [facility] [address] [place] [address] Jazlyn Addison DO [address] [place] [address] documented as of this encounter Visit Diagnoses Not on filedocumented in this encounter Additional Health Concerns Assessment Noted Time PHQ-9 Depression Total Score: 2 04/18/20 24 10:31 AM EDT documented as of this encounter Care Teams Climatology Professor Relationship Specialty Start Date End Date Jazlyn Addison DO [address] [place] [address] PCP - General Family Medicine 03/01/12 documented as of this encounter
--- OUTSIDE RECORDS SUMMARY | 2025-07-05 08:53 | XMS_ITS | Encounter Summary ---
Author Organization [employer] Address [address] [facility] 7t [place] [address] Care Team Providers Care Cooperage Shop Supervisor Name Role Phone Jazlyn Addison DO Primary Care Provider [phone] Reason for Visit * Reason Onset Date Comments Results 06/27/2025 Encounter Details Date Type Department Care Team ([facility] st Contact Info) Description 06/27/2025 Results Follow-Up [facility] [address] [place], [place] [phone] Nenita James MD [address] [place], [place] [phone] XR CERVICAL SPINE 3V Social History Tobacco Use Types Packs/Day Years [...] encounter Miscellaneous Notes * Telephone Encounter - Dian Chandler RN - 07/04/2025 2:04 PM EDT TC placed to the pt with S primary therapist #[id number] to inform of the result message below from Dr. James indicating that the pt XR results showed moderate degenerative disc disease of the neck and a normal CXR. The pt was asked if they were agreeable to starting on PT as recommended by Dr. James. The pt was agreeable and advised that the request will be sent to the provider to place referral. ----- Message from Nenita James MD sent at 07/04/2025 12:57 PM EDT ----- PCP Dr. Addison. Seen for sick visit last week for chest pain. X-ray showed moderate degenerative disc disease of neck and normal CXR. I recommend PT. Please check if she has mammography scheduled. Thank you. ----- Message ----- From: Interface, Ris Results In Sent: 06/27/2025 1:21 PM EDT To: Nenita James MD documented in this encounter Plan of Treatment Upcoming Encounters Date Type Department Care Team (Late st Contact Info) Description 07/21/2025 10:00 AM EDT Office Visit [facility] [address] [place] [address] Jazlyn Addison DO [address] [place] [address] documented as of this encounter Visit Diagnoses Not on filedocumented in this encounter Additional Health Concerns Assessment Noted Time PHQ-9 Depression Total Score: 2 04/18/20 24 10:31 AM EDT documented as of this encounter Care Teams Cooperage Shop Supervisor Relationship Specialty Start Date End Date Jazlyn Addison DO [address] [place] [address] PCP - General Family Medicine 03/01/12 documented as of this encounter
--- OUTSIDE RECORDS SUMMARY | 2025-07-05 08:53 | XMS_ITS | Encounter Summary ---
Author Organization [employer] Address [address] [facility] 7t [place] [address] Care Team Providers Care Principal Engineer Name Role Phone Jazlyn Addison DO Primary Care Provider [phone] Reason for Visit * Reason Onset Date Comments Results 07/04/2025 Encounter Details Date Type Department Care Team ([facility] st Contact Info) Description 07/04/2025 Telephone [facility] [address] [place], [place] [phone] Jazlyn Addison DO [address] [place], [place] [phone] Results Social History Tobacco Use Types Packs/Day Years [...] encounter Miscellaneous Notes * Telephone Encounter - Triston Forman - 07/04/2025 11:38 AM EDT Tc from pt requesting a call back regarding xray results Contact pt at [phone] (zimbabwean) documented in this encounter Plan of Treatment Upcoming Encounters Date Type Department Care Team (Late st Contact Info) Description 07/21/2025 10:00 AM EDT Office Visit [facility] [address] [place] [address] Jazlyn Addison DO [address] [place] [address] documented as of this encounter Visit Diagnoses Not on filedocumented in this encounter Additional Health Concerns Assessment Noted Time PHQ-9 Depression Total Score: 2 04/18/20 24 10:31 AM EDT documented as of this encounter Care Teams Principal Engineer Relationship Specialty Start Date End Date Jazlyn Addison DO [address] [place] [address] PCP - General Family Medicine 03/01/12 documented as of this encounter
--- OUTSIDE RECORDS SUMMARY | 2025-07-05 08:53 | XMS_ITS | Encounter Summary ---
Author Organization [employer] Address [address] [facility] [address] [place] [address] Care Team Providers Care Pin Chaser Name Role Phone Jazlyn Addison DO Primary Care Provider [phone] Reason for Visit * Reason Onset Date Comments Nurse Triage 07/04/2025 Encounter Details Date Type Department Care Team ([facility] st Contact Info) Description 07/04/2025 Telephone [facility] [address] [place], [place] [phone] aJzlyn Addison DO [address] [place], [place] [phone] Nurse Triage Social History Tobacco Use Types [...] encounter Miscellaneous Notes * Telephone Encounter - Jil Parks MA - 07/04/2025 3:33 PM EDT Spoke with patient schedule sooner follow up for 07/21/25 at 10am per Erika. * Telephone Encounter - Karma Bender LPN - 07/04/2025 1:11 PM EDT Triage call placed with [facility] due to wait times with BLS [facility] # [id number]. Patient reports ongoing left chest pain unchanged from previous visits. Seen in [facility] last week. Has not yet completed Mammogram. Referral number and [facility] Radiology number providednow at time of call and patient instructed to call for first available appt. Patient is currently taking Tylenol and identifies left rib pain. Patient xrays reviewed at time of call. Patient reports shortness of breath with activities at times. Patient reports that previous use of meloxicam was ineffective. Patient scheduled with PCP for 07/31/25. Patient would like sooner appt if available and has scheduling concern for appt. 07/31/25. Appt left intact and patient to call to get mammogram [facility]. Patient verbalized understanding and in agreement with plan. Reviewed with patient home care recommendations, reasons to call back and symptoms that require immediate evaluation in UC or ER. Patientverbalized understanding and agrees. Forwarded to PCP and team as FYI to follow up PRN Protocol Used: Chest Pain (Adult) Protocol-Based Disposition: See in Office or Video Visit Today Override (Final) Disposition: See in Office or Video Visit within 2 Weeks Override Reason: Other Override Notes: Patient offered appt for today and is unable to attend due to childcare concerns Video visit not offered Positive Triage Question: * All other patients [...] Difficulty breathing or unusual sweating occurs - You become worse * Telephone Encounter - Uri Luna - 07/04/2025 11:55 AM EDT Symptoms: Breathing Trouble, Chest Pain - Adult Outcome: Transfer to a nurse or provider NOW! Reason: This is the only possible outcome for these symptoms Please contact pt at [phone]. (Finnish Speaker) documented in this encounter Plan of Treatment Upcoming Encounters Date Type Department Care Team (Late st Contact Info) Description 07/21/2025 10:00 AM EDT Office Visit [facility] [address] [place] [address] Jazlyn Addison DO [address] [place] [address] documented as of this encounter Visit Diagnoses Not on filedocumented in this encounter Additional Health Concerns Assessment Noted Time PHQ-9 Depression Total Score: 2 04/18/20 24 10:31 AM EDT documented as of this encounter Care Teams Pin Chaser Relationship Specialty Start Date End Date Jazlyn Addison DO [address] [place] [address] PCP - General Family Medicine 03/01/12 documented as of this encounter
== END 2025-07-05 08:27 | disposition home or self-care (01) ==
LOC: HO.MAMMO 08:26
PROVIDERS: PCP Family Medicine; Visit Provider Family Medicine
DX: N64.4 Mastodynia (principal)
CPT/HCPCS: 76642; 77062; 77066

== ENCOUNTER 2025-07-21 11:23 | Outpatient (REF) | payer MEDICAID, SELFPAY ==
--- OUTSIDE RECORDS SUMMARY | 2025-07-21 10:00 | XMS_ITS | Encounter Summary ---
Author Organization [employer] Address [address] [facility] [address] [place] [address] Care Team Providers Care Ambulatory Technologist Name Role Phone Jazlyn Addison DO Primary Care Provider [phone] Encounter Details Date Type Department Care Team (Late st Contact Info) Description 07/21/2025 10:00 AM EDT Office Visit [facility] [address] [place], [place] [phone] Jazlyn Addison DO [address] [place], [place] [phone] Chest pain, unspecified type (Primary Dx); Type 2 diabetes mellitus with diabetic microalbuminuria, without long-term current use of insulin ([facility]); Chronic diarrhea; Tremor of both hands Social History Tobacco Use Types Packs/Day Years Used Date Smoking Tobacco: Never Smokeless Tobacco: Never Alcohol Use Standard Drinks/Week Comments Never 0 (1 standard drink = 0.6 oz pur e alcohol) Depression Answer Date Recorded Patient Health Questionnaire-9 Score 3 07/21/2025 Patient Health Questionnaire-9 Score 3 07/21/2025 Last PHQ-9: Questionnaire Data Not on file 0 07/21/2025 Housing Stability Answer Date Recorded What is [...] Answer Date Recorded Patient Health Questionnaire-2 Score 1 07/21/2025 Internet Access Answer Date Recorded Internet Access [...] Sign Reading Time Taken Comments Blood Pressure 132/78 07/21/2025 10:27 AM EDT Pulse 70 07/21/2025 10:27 AM EDT Temperature 36.7 C (98.1 F) 07/21/2025 10:27 AM EDT Respiratory Rate 19 07/21/2025 10:27 AM EDT Oxygen Saturation 98% 07/21/2025 10:27 AM EDT Inhaled Oxygen Concentration - - Weight 80.3 kg (177 lb) 07/21/2025 10:27 AM EDT Height 157.5 cm (5' 2 ) 07/21/2025 10:27 AM EDT Body Mass Index 32.37 07/21/2025 10:27 AM EDT documented in this encounter Functional Status * Over the past 2 weeks, how often have you been bothered by any of the following problems? Question Answer Date of Assessment Author Patient Health Questionnaire -2 Score 1 07/21/2025 10:29 AM EDT Jil Parks [place] * Little interest or pleasure in doing things Answer Date of Assessment Author Not at all 07/21/2025 10:29 AM EDT Jil Parks MA * Feeling down, depressed, or hopeless Answer Date of Assessment Author Several days 07/21/2025 10:29 AM EDT Jil Parks MA * Trouble falling or staying asleep, or sleeping too much Answer Date of Assessment Author Not at all 07/21/2025 10:29 AM Jil Kee [place] * Feeling tired or having little energy Answer Date of Assessment Author Not at all 07/21/2025 10:29 AM JIMT Jil Parks MA * Poor appetite or overeating Answer Date of Assessment Author More than half the days 07/21/2025 10:29 AM EDT Jil Parks MA * Feeling bad about yourself - or that you are a failure or have let yourself or your family down Answer Date of Assessment Author Not at all 07/21/2025 10:29 AM Jil Kee [place] * Trouble concentrating on things, such as reading the newspaper or watching television Answer Date of Assessment Author Not at all 07/21/2025 10:29 AM Jil Kee MA * Moving or speaking so slowly that other people could have noticed? Or the opposite - being so fidgety or restless that you have been moving around a lot more than usual. Answer Date of Assessment Author Not at all 07/21/2025 10:29 AM Jil Kee MA * Thoughts that you would be better off or hurting yourself in some way Answer Date of Assessment Author Not at all 07/21/2025 10:29 AM Jil Kee MA * Patient Health Questionnaire-9 Score Answer Date of Assessment Author 3 07/21/2025 10:29 AM Jil Kee MA * How difficult have these problems made it for you to do your work, take care of things at home, or get along with other people? Answer Date of Assessment Author Somewhat difficult 07/21/2025 10:29 AM Jil Clemente MA * Over the last 2 weeks, how often have you been bothered by any of the following problems? Question Answer Date of Assessment Author Feeling nervous, anxious, or on edge 1 07/21/2025 10:29 AM Jil Kee MA Not being able to stop or co ntrol worrying 1 07/21/2025 10:29 AM EDT Jil Parks MA Worrying too much about diff erent things 1 07/21/2025 10:29 AM EDT Jil Parks MA Trouble relaxing 1 07/21/2025 10:29 AM EDT Jil Parks MA Being so restless that it is hard to sit still 0 07/21/2025 10:29 AM EDT Jil Parks MA Becoming easily annoyed or irritable 0 07/21/2025 10:29 AM EDT Jil Parks MA Feeling afraid as if somethi ng awful might happen 0 07/21/2025 10:29 AM EDT Jil Parks MA GOPAL-7 Total Score 4 07/21/2025 10:29 AM EDT Jil Parks [place] documented as of this encounter Plan of Treatment Scheduled Orders Name Type Priority Associated Diagnoses Orde r Schedule Stool - Gastrointestinal panel Microbiology Routine Chronic diarrhea Expected: 07/21/2025 (Approximate), Expires: 07/21/2026 Leukocytes Stool Qualitative Lab Routine Chronic diarrhea Expected: 07/21/2025, Expires: 07/21/2026 Giardia Antigen, EIA, Stool Lab Routine Chronic diarrhea Expected: 07/21/2025, Expires: 07/21/2026 Helicobacter pylori Antigen, EIA, Stool Lab Routine Chronic diarrhea Expected: 07/21/2025, Expires: 07/21/2026 documented as of this encounter Procedures Procedure Name Priority Date/Time Associated Diagnosis Comments POCT GLYCATED HEMOGLOBIN, TOTAL Routine 07/21/2025 10:31 AM EDT Type 2 diabetes mellitus with diabetic microalbuminuria, without long-term current use of insulin ([facility]) POCT GLUCOSE Routine 07/21/2025 10:30 AM EDT Type 2 diabetes mellitus with diabetic microalbuminuria, without long-term current use of insulin ([facility]) documented in this encounter Results * (ABNORMAL) POCT Hgb A1c (07/21/2025 10:31 AM EDT) Hemoglobin A1C 6.6(A) 4.0 - 5.7 % QC Media Lot # [id number] Lot# Expiration Date Blood 07/21/2025 10:3 1 AM EDT Jazlyn Addison DO POINT OF CARE TEST ENTER/NIDIA T ORDERABLES Final Result * POCT Glucose (07/21/2025 10:30 AM EDT) Glucose Blood, POC 116 60 - 200 mg/dL QC Media Lot # [id number] Lot# Expiration Date Blood Capillary blood specimen / Unknown 07/21/2025 10:30 AM EDT Jazlyn Addison DO POINT OF CARE TEST ENTER/NIDIA T ORDERABLES Final Result documented in this encounter Visit Diagnoses Diagnosis Chest pain, unspecified type- Primary Type 2 diabetes mellitus with diabetic microalbuminuria, without long-term current use of insulin ([facility]) Chronic diarrhea Diarrhea Tremor of both hands documented in this encounter Additional Health Concerns Assessment Noted Time PHQ-9 Depression Total Score: 3 07/21/20 25 10:29 AM EDT documented as of this encounter Care Teams Ambulatory Technologist Relationship Specialty Start Date End Date Jazlyn Addison DO [address] [place] [address] PCP - General Family Medicine 03/01/12 documented as of this encounter
--- OUTSIDE RECORDS SUMMARY | 2025-07-21 12:01 | XMS_ITS | Encounter Summary ---
Author Organization [employer] Address [address] [facility] [address] [place] [address] Care Team Providers Care Electrician Apprentice Powerhouse Name Role Phone Jazlyn Addison DO Primary Care Provider [phone] Reason for Visit * Reason Onset Date Comments Chart Prep 07/20/2025 Encounter Details Date Type Department Care Team ([facility] st Contact Info) Description 07/20/2025 Telephone [facility] [address] [place], [place] [phone] Jazlyn Addison DO [address] [place], [place] [phone] Chart Prep Social History Tobacco Use Types Packs/Day Years [...] Telephone Encounter - Jil Parks MA - 07/20/2025 11:45 AM EDT Chart Prep Labs: done Images: done Referrals: appointment pending Vaccines due: Covid, Flu, PCV20, Hep B, Hep A, and Zoster Screenings: eye exam and foot exam Overdue care gaps: A1c, Glucose, SBIRT, SDOH, PHQ-9, and GOPAL-7 documented in this encounter Plan of Treatment Not on file documented as of this encounter Visit Diagnoses Not on filedocumented in this encounter Additional Health Concerns Assessment Noted Time PHQ-9 Depression Total Score: 2 04/18/20 24 10:31 AM EDT documented as of this encounter Care Teams Electrician Apprentice Powerhouse Relationship Specialty Start Date End Date Jazlyn Addison DO [address] [place] [address] PCP - General Family Medicine 03/01/12 documented as of this encounter
--- OUTSIDE RECORDS SUMMARY | 2025-07-21 12:01 | XMS_ITS | Encounter Summary ---
Author Organization [employer] Address [address] [place] [address] [address] [place] [address] Care Team Providers Care Cattery Operator Name Role Phone Jazlyn Addison DO Primary Care Provider [phone] Encounter Details Date Type Department Care Team (Late st Contact Info) Description 08/07/2023 Abstract [facility] [address] [place], [place] [phone] Cristela Villalobos Social History Tobacco Use Types [...] on filedocumented in this encounter Care Teams Cattery Operator Relationship Specialty Start Date End Date Jazlyn Addison DO [address] [place], [place] [phone] PCP - General Family Medicine 03/01/12 documented as of this encounter
--- OUTSIDE RECORDS SUMMARY | 2025-07-21 12:01 | XMS_ITS | Encounter Summary ---
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 Driver Operator Name Role Phone Jazlyn Addison Primary Care Provider [phone] Reason for Referral * Consultation (Urgent) - Closed Specialty Diagnoses / Procedures Referred By Nilson t Referred To Contact Physical Therapy Diagnoses Neck pain on left side Acute pain of left shoulder Nenita James MD [address] [place] [address] Phone: tel: fax: [facility] [address] [place] [address] Phone: tel: fax: Referral ID Status Reason Start Date Expiration Date V isits Requested Visits Authorized [id number] Closed Specialty Services Required 07/05/2025 07/05/2026 20 20 Encounter Details Date Type Department Care Team (Late st Contact Info) Description 07/04/2025 Orders Only [facility] [address] [place] [address] Nenita James MD [address] [place], [place] [phone] Neck pain on left side (Primary Dx); [...] Procedure Name Priority Date/Time Associated Diagnosis Comments AMB REFERRAL TO PHYSICAL THERAPY Urgent 07/07/2025 Neck pain on left side Acute pain of left shoulder BI US BREAST LIMITED LEFT Routine 07/05/2025 9:18 AM EDT BI MAMMOGRAM DIAGNOSTIC TOMOSYNTHESIS BILATERAL Routine 07/05/2025 8:32 AM EDT documented in this encounter Results * Referral to Physical Therapy (07/07/2025) us Nenita James MD OUTPATIENT REFERRAL ORDERABLES F inal Result * BI US Breast Limited Left (07/05/2025 9:18 AM EDT) Anatomical Region Laterality Modality Breast Left Ultrasound 07/05/2025 9:18 AM EDT Narrative 07/05/2025 11:46 AM EDT [address] [place] [address] Ultrasound Report Signed Patient: Ira Newberry MR#: [id number] 57 : 1970 Acct:[id number] Age/Sex: 55 / F ADM Date: 07/05/25 Loc: HO.MAMMO Attending Dr: Nenita James MD Ordering Physician: Nenita James MD Date of Service: 07/05/25 Procedure(s): US breast LT limited mamm only Accession Number(s): [id number] cc: Jazlyn Addison DO; Nenita James MD Reason for Exam: LT BR AXILLARY PAIN EXAMINATION: MM DIAGNOSTIC DIGITAL BREAST TOMOSYNTHESIS, BILATERAL Limited left breast ultrasound. CLINICAL INFORMATION: 55-year-old female with left breast pain. COMPARISON: Mammography: Comparison is made with relevant prior exams. TECHNIQUE: Digital breast mammography with tomosynthesis is performed in both the craniocaudal and mediolateral oblique views along with computer-aided detection (CAD). FINDINGS: There are scattered areas of fibroglandular density (ACR BI-RADS breast composition Category b). Left: [place] marker in the upper outer left breast at site of patient's pain without underlying abnormal finding. There are no significant masses, abnormal calcifications, or other abnormalities. Targeted color Doppler ultrasound scanning in the area of patient's pain from 11-1 o'clock demonstrates normal fibronodular breast tissue. There is an incidental hypoechoic oval parallel solid mass versus complicated cyst at 1:00 6 cm from the nipple measuring 4 x 3 x 4 mm. Right: Asymmetry lateral right breast middle to posterior depth on CC view is unchanged dating back to 2009 No suspicious masses calcifications or other abnormal findings. Results are provided to the patient at time of visit by the technologist. US/US breast LT limited mamm only IMPRESSION: Right: Negative. Left: 1. No mammographic or sonographic abnormal finding to account for the patient's left breast pain. Recommend clinical evaluation follow-up. 2. Solid mass versus complicated cyst at 1:00 6 cm from the nipple. Recommend 6 month follow-up ultrasound for further evaluation of stability. ASSESSMENT: BI-RADS BI-RADS 3 - Probably benign finding(s) - 6 month follow-up suggested RECOMMENDATION: 6 Month F/U This patient's information was entered into a reminder system with a target due date for their next mammogram. Electronically signed by: Samia Salazar DO 07/05/2025 11:44 AM EDT RP Dictated By: Samia Salazar DO Signed By: <Electronically signed by Samia Salazar DO in OV> 07/05/25 1144 DD/ 7 TD/TT: 07/05/25 1015 Credit Control Assistant: Procedure Note Donotuseinterpreter, Image - 07/05/2025 [facility] [address] [place] [address] Ultrasound Report Signed Patient: Ira Newberry#: [id number] 57 : 1970Acct:[id number] Age/Sex: 55 / FADM Date: 07/05/25 Loc: [facility] Attending Dr: Nenita James MD Ordering Physician: Nenita James MD Date of Service: 07/05/25 Procedure(s): US breast LT limited mamm only Accession Number(s): [id number] cc: Jazlyn Addison DO; Nenita James MD Reason for Exam: LT BR AXILLARY PAIN EXAMINATION: MM DIAGNOSTIC DIGITAL BREAST TOMOSYNTHESIS, BILATERAL Limited left breast ultrasound. CLINICAL INFORMATION: 55-year-old female with left breast pain. COMPARISON: Mammography: Comparison is made with relevant prior exams. TECHNIQUE: Digital breast mammography with tomosynthesis is performed in both the craniocaudal and mediolateral oblique views along with computer-aided detection (CAD). FINDINGS: There are scattered areas of fibroglandular density (ACR BI-RADS breast composition Category b). Left: [place] marker in the upper outer left breast at site of patient's pain without underlying abnormal finding. There are no significant masses, abnormal calcifications, or other abnormalities. Targeted color Doppler ultrasound scanning in the area of patient's pain from 11-1 o'clock demonstrates normal fibronodular breast tissue. There is an incidental hypoechoic oval parallel solid mass versus complicated cyst at 1:00 6 cm from the nipple measuring 4 x 3 x 4 mm. Right: Asymmetry lateral right breast middle to posterior depth on CC view is unchanged dating back to 2009 No suspicious masses calcifications or other abnormal findings. Results are provided to the patient at time of visit by the technologist. US/US breast LT limited mamm only IMPRESSION: Right: Negative. Left: 1. No mammographic or sonographic abnormal finding to account for the patient's left breast pain. Recommend clinical evaluation follow-up. 2. Solid mass versus complicated cyst at 1:00 6 cm from the nipple. Recommend 6 month follow-up ultrasound for further evaluation of stability. ASSESSMENT: BI-RADS BI-RADS 3 - Probably benign finding(s) - 6 month follow-up suggested RECOMMENDATION: 6 Month F/U This patient's information was entered into a reminder system with a target due date for their next mammogram. Electronically signed by: Samia Salazar DO 07/05/2025 11:44 AM EDT Dictated By: Samia Salazar DO Signed By: <Electronically signed by Samia Salazar DO in OV> 07/05/25 1144 DD/ 0918 TD/TT: 07/05/25 1015 Credit Control Assistant: us Nenita James MD IMG US PROCEDURES Final Result * BI Mammogram Diagnostic Tomosynthesis Bilateral (07/05/2025 8:32 AM EDT) Anatomical Region Laterality Modality Breast Bilateral Mammography 07/05/2025 8:32 AM EDT Narrative 07/05/2025 11:46 AM EDT [facility] [address] [place] [address] [place] [address] Mammography Report Signed Patient: Ira Newberry MR#: [id number] 57 : 1970 Acct:[id number] Age/Sex: 55 / F ADM Date: 07/05/25 Loc: .MAMMO Attending Dr: Nenita James MD Ordering Physician: Nenita James MD Results: 3.6MProba tory Benign Finding - Short 6 M F/U Suggested Date of Service: 07/05/25 Follow Up: 6 Month F/U Procedure(s): MM tomosynthesis diagnostic BI Accession Number(s): [id number] cc: Jazlyn Addison DO; Nenita James MD EXAMINATION: MM DIAGNOSTIC DIGITAL BREAST TOMOSYNTHESIS, BILATERAL Limited left breast ultrasound. CLINICAL INFORMATION: 55-year-old female with left breast pain. COMPARISON: Mammography: Comparison is made with relevant prior exams. TECHNIQUE: Digital breast mammography with tomosynthesis is performed in both the craniocaudal and mediolateral oblique views along with computer-aided detection (CAD). FINDINGS: There are scattered areas of fibroglandular density (ACR BI-RADS breast composition Category b). Left: [place] marker in the upper outer left breast at site of patient's pain without underlying abnormal finding. There are no significant masses, abnormal calcifications, or other abnormalities. Targeted color Doppler ultrasound scanning in the area of patient's pain from 11-1 o'clock demonstrates normal fibronodular breast tissue. There is an incidental hypoechoic oval parallel solid mass versus complicated cyst at 1:00 6 cm from the nipple measuring 4 x 3 x 4 mm. Right: Asymmetry lateral right breast middle to posterior depth on CC view is unchanged dating back to 2009 No suspicious masses calcifications or other abnormal findings. Results are provided to the patient at time of visit by the technologist. MM/MM tomosynthesis diagnostic BI IMPRESSION: Right: Negative. Left: 1. No mammographic or sonographic abnormal finding to account for the patient's left breast pain. Recommend clinical evaluation follow-up. 2. Solid mass versus complicated cyst at 1:00 6 cm from the nipple. Recommend 6 month follow-up ultrasound for further evaluation of stability. ASSESSMENT: BI-RADS BI-RADS 3 - Probably benign finding(s) - 6 month follow-up suggested RECOMMENDATION: 6 Month F/U This patient's information was entered into a reminder system with a target due date for their next mammogram. Electronically signed by: Samia Salazar DO 07/05/2025 11:44 AM EDT RP Dictated By: Samia Salazar DO Signed By: <Electronically signed by Samia Salazar DO in OV> 07/05/25 1144 DD/ 0832 TD/TT: 07/05/25 0851 Credit Control Assistant: Procedure Note Donotuseinterpreter, Image - [facility] [address] [place] [address] Mammography Report Signed Patient: Ira Newberry#: [id number] 57 : 1970Acct:[id number] Age/Sex: 55 / FADM Date: 07/05/25 Loc: HO.MAMMO Attending Dr: Nenita Jaems MD Ordering Physician: Nenita James MDResults: 3.6MProba tory Benign Finding - Short 6 M F/U Suggested Date of Service: 07/05/25Follow Up: 6 Month F/U Procedure(s): MM tomosynthesis diagnostic BI Accession Number(s): [id number] cc: Jazlyn Addison DO; Nenita James MD EXAMINATION: MM DIAGNOSTIC DIGITAL BREAST TOMOSYNTHESIS, BILATERAL Limited left breast ultrasound. CLINICAL INFORMATION: 55-year-old female with left breast pain. COMPARISON: Mammography: Comparison is made with relevant prior exams. TECHNIQUE: Digital breast mammography with tomosynthesis is performed in both the craniocaudal and mediolateral oblique views along with computer-aided detection (CAD). FINDINGS: There are scattered areas of fibroglandular density (ACR BI-RADS breast composition Category b). Left: [place] marker in the upper outer left breast at site of patient's pain without underlying abnormal finding. There are no significant masses, abnormal calcifications, or other abnormalities. Targeted color Doppler ultrasound scanning in the area of patient's pain from 11-1 o'clock demonstrates normal fibronodular breast tissue. There is an incidental hypoechoic oval parallel solid mass versus complicated cyst at 1:00 6 cm from the nipple measuring 4 x 3 x 4 mm. Right: Asymmetry lateral right breast middle to posterior depth on CC view is unchanged dating back to 2009 No suspicious masses calcifications or other abnormal findings. Results are provided to the patient at time of visit by the technologist. MM/MM tomosynthesis diagnostic BI IMPRESSION: Right: Negative. Left: 1. No mammographic or sonographic abnormal finding to account for the patient's left breast pain. Recommend clinical evaluation follow-up. 2. Solid mass versus complicated cyst at 1:00 6 cm from the nipple. Recommend 6 month follow-up ultrasound for further evaluation of stability. ASSESSMENT: BI-RADS BI-RADS 3 - Probably benign finding(s) - 6 month follow-up suggested RECOMMENDATION: 6 Month F/U This patient's information was entered into a reminder system with a target due date for their next mammogram. Electronically signed by: Samia Salazar DO 07/05/2025 11:44 AM EDT RP Workstation: [facility] Dictated By: Samia Salazar DO Signed By: <Electronically signed by Samia Salazar DO in OV> 07/05/25 1144 DD/ 0832 TD/TT: 07/05/25 0851 Credit Control Assistant: us Nenita James MD IMG BI PROCEDURES Final Result documented in this encounter Visit Diagnoses Diagnosis Neck pain on left side- Primary Acute pain of left shoulder documented in this encounter Additional Health Concerns Assessment Noted Time PHQ-9 Depression Total Score: 2 04/18/20 24 10:31 AM EDT documented as of this encounter Care Teams Concrete Pile Driver Operator Relationship Specialty Start Date End Date Jazlyn Addison DO [address] [place] [id number] PCP - General Family Medicine 03/01/12 documented as of this encounter
--- OUTSIDE RECORDS SUMMARY | 2025-07-21 12:01 | XMS_ITS | Clinical Summary ---
Author Organization [employer] Address [address] [facility] 7t [place] [address] Care Team Providers Care Bessemer Converter Operator Name Role Phone Jazlyn Addison DO [...] Encounters Date Type Department Care Team Description 07/21/2025 10:00 AM EDT Office Visit [facility] [address] [place] [address] Jazlyn Addison DO Chest pain, unspecified type (Primary Dx); Type 2 diabetes mellitus with diabetic microalbuminuria, without long-term current use of insulin ([facility]); Chronic diarrhea; Tremor of both hands 07/21/2025 Travel 07/20/2025 Telephone [facility] [address] [place], [place] [phone] Jazlyn Addison DO Chart Prep 07/05/2025 Results Follow-Up [address] [place] [address] Nenita James MD BI Mammogram Diagnostic Tomosynthesis Bilateral 07/04/2025 Orders Only [address] [place] [address] Nenita James MD Neck pain on left side (Primary Dx); Acute pain of left shoulder 07/04/2025 Travel 07/04/[address] [address] Jazlyn Addison DO Nurse Triage 07/04/[address] [address] Jazlyn Addison DO Results 06/27/2025 10:45 AM EDT Office Visit [address] [address] Nenita James MD Neck pain on left side (Primary Dx); Breast pain, left; Left-sided chest pain; Acute pain of left shoulder; Dietary counseling; Exercise counseling; Class 1 obesity due to excess calories with serious comorbidity and body mass index (BMI) of 32.0 to 32.9 in adult 06/27/2025 Results Follow-Up [address] [address] Nenita James MD XR CERVICAL SPINE 3V 06/27/[address] [address] Jazlyn Addison DO Referral 06/27/2025 Travel 06/26/[address] [address] Jazlyn Addison DO Nurse Triage 05/22/2025 10:20 AM EDT Office Visit [facility] [address] [place] [phone] Sharee Diana MD Acute costochondritis (Primary Dx); Nasal congestion 05/03/[address] [address] Jazlyn Addison DO telephone call from Last 3 Months Immunizations Immunization Administration [...] Mass Index 32.37 07/21/2025 10:27 AM EDT Plan of Treatment Health Maintenance Due Date Last Done Comments CT Colonography 1968 Colonoscopy 1968 FIT 1968 Sigmoidoscopy 1968 Diabetes: Foot Exam 01/16/1978 Eye Exam 01/16/1978 Hepatitis A Vaccines (1 of 2 - Risk 2-dose series) 01/16/1987 Hepatitis B Vaccines (1 of 3 - 19+ 3-dose series) 01/16/1987 Zoster Vaccines (1 of 2) 01/16/2018 Pneumococcal Vaccine: 50+ Years (2 of 2 - PCV) 07/29/2019 07/29/2018 FOBT 08/26/2024 08/26/2023 SDOH Screening 04/18/2025 04/18/2024 COVID-19 Vaccine ( season) 2025 02/03/2023, 11/27/2021, 04/08/2021, Additional history exists Influenza Vaccine (#1) 2025 , 08/07/2023, 07/29/2022, Additional history exists Diagnostic Breast Imaging 01/02/20262024, 07/05/2025, 09/02/2024, Additional history exists Diabetes: Hemoglobin A1C 01/18/2026 025, 04/03/2025, 04/03/2025, Additional history exists Disability Screening 04/03/2026 04/03/2025 Lipid Panel 04/03/2026 04/03/2025, 11/03, 11/20/2021, Additional history exists Alcohol/Substance Use Screening 07/21/2026 07/21/2025 Depression Screening 07/21/2026 07/21/2025, 07/21/20 Tobacco Screening 07/21/2026 07/21/2025 Cervical Cancer Screening 07/22/2026 HPV/Cotest 07/22/2026 07/22/2021, [...] microalbuminuria, without long-term current use of insulin ([facility]) POCT GLUCOSE Routine 07/21/2025 10:30 AM EDT Type 2 diabetes mellitus with diabetic microalbuminuria, without long-term current use of insulin (CMS/HCC) AMB REFERRAL TO PHYSICAL THERAPY Urgent 07/07/2025 Neck pain on left side Acute pain of left shoulder BI US BREAST LIMITED LEFT Routine 07/05/2025 9:18 AM EDT BI MAMMOGRAM DIAGNOSTIC TOMOSYNTHESIS BILATERAL Routine 07/05/2025 8:32 AM EDT XR CERVICAL SPINE 3V Routine 06/27/2025 12:05 PM EDT Neck pain on left side XR CHEST 2 VIEWS Routine 06/27/2025 12:0 2 PM EDT Left-sided chest pain POCT RAPID STREP A Routine 05/22/2025 10 :16 AM EDT Nasal congestion POCT COVID-19 AG EPPERSON ID NOW Routine 05/22/2025 10:16 AM EDT Nasal congestion HEPATITIS C AB W/REFL TO HCV RNA, [...] without long-term current use of insulin (CMS/HCC) LAB COLOGUARD COLON CANCER SCREEN Routine 08/26/2023 12:20 PM EDT Healthcare maintenance HM PAP/HPV Routine 07/22/2021 from Last 3 Months or Most Recently Relevant to Health Maintenance Results * (ABNORMAL) POCT Hgb A1c (07/21/2025 10:31 AM EDT) Hemoglobin A1C 6.6(A) 4.0 - 5.7 % QC Media Lot # [id number] Lot# Expiration Date Blood 07/21/2025 10:3 1 AM EDT Jazlyn zAael DO POINT OF CARE TEST ENTER/NIDIA T ORDERABLES Final Result * POCT Glucose (07/21/2025 10:30 AM EDT) Glucose Blood, POC 116 60 - 200 mg/dL QC Media Lot # [id number] Lot# Expiration Date Blood Capillary blood specimen / Unknown 07/21/2025 10:30 AM EDT Jazlyn Addison DO POINT OF CARE TEST ENTER/NIDIA T ORDERABLES Final Result * Referral to Physical Therapy (07/07/2025) us Nenita James MD OUTPATIENT REFERRAL ORDERABLES F inal Result * BI US Breast Limited Left (07/05/2025 9:18 AM EDT) Anatomical Region Laterality Modality Breast Left Ultrasound 07/05/2025 9:18 AM EDT Narrative 07/05/2025 11:46 AM EDT [facility] [address] [place] [address] [place] [address] Ultrasound Report Signed Patient: Ira Newberry MR#: [id number] 57 : 1970 Acct:[id number] Age/Sex: 55 / F ADM Date: 07/05/25 Loc: HO.MAMMO Attending Dr: Nenita James MD Ordering Physician: Nenita James MD Date of Service: 07/05/25 Procedure(s): US breast LT limited mamm only Accession Number(s): [id number] cc: Jazlyn Addison DO; Nenita James MD [...] (ACR BI-RADS breast composition Category b). Left: [place] marker in the upper outer left breast [...] 07/05/25 1144 DD/ 0918 TD/TT: 07/05/25 1015 Manufacturing Assistant: Procedure Note Donotuseinterpreter, Image - 07/05/2025 [facility] [address] [place], [place] [address] Ultrasound Report Signed Patient: Gia Newberry#: [id number] 57 : 1970Acct:[id number] Age/Sex: 55 / FADM Date: 07/05/25 Loc: HO.MAMMO Attending Dr: Nenita James MD Ordering Physician: Nenita James MD Date of Service: 07/05/25 Procedure(s): US breast LT limited mamm only Accession Number(s): [id number] cc: Jazlyn Addison DO; Nenita James MD [...] (ACR BI-RADS breast composition Category b). Left: [place] marker in the upper outer left breast [...] Samia Salazar DO 07/05/2025 11:44 AM EDT Workstation: [employer] Dictated By: Samia Salazar DO Signed By: <Electronically signed by Samia Salazar DO in OV> 07/05/25 1144 DD/ 0918 TD/TT: 07/05/25 1015 Manufacturing Assistant: us Nenita James MD IMG US PROCEDURES Final Result * BI Mammogram Diagnostic Tomosynthesis Bilateral (07/05/2025 8:32 AM EDT) Anatomical Region Laterality Modality Breast Bilateral Mammography 07/05/2025 8:32 AM EDT Narrative 07/05/2025 11:46 AM EDT [facility] [address] [place] [address] Mammography Report Signed Patient: Ira Newberry MR#: [id number] 57 : 1970 Acct:[id number] Age/Sex: 55 / F ADM Date: 07/05/25 Loc: HO.MAMMO Attending Dr: Nenita James MD Ordering Physician: Nenita James MD Results: 3.6MProba tory Benign Finding - Short 6 M F/U Suggested Date of Service: 07/05/25 Follow Up: 6 Month F/U Procedure(s): MM tomosynthesis diagnostic BI Accession Number(s): [id number] cc: Jazlyn Addison DO; Nenita James MD [...] (ACR BI-RADS breast composition Category b). Left: [place] marker in the upper outer left breast [...] 07/05/25 1144 DD/ 0832 TD/TT: 07/05/25 0851 Manufacturing Assistant: Procedure Note Donotuseinterpreter, Image - 07/05/2025 [facility] [address] [place] [address] [place] [address] Mammography Report Signed Patient: Ira Newberry#: [id number] 57 : 1970Acct:[id number] Age/Sex: 55 / FADM Date: 07/05/25 Loc: JAMEO Attending Dr: Nenita James MD Ordering Physician: Nenita James MDResults: 3.6MProba tory Benign Finding - Short 6 M F/U Suggested Date of Service: 07/05/25Follow Up: 6 Month F/U Procedure(s): MM tomosynthesis diagnostic BI Accession Number(s): [id number] cc: Jazlyn Addison DO; Nenita James MD [...] (ACR BI-RADS breast composition Category b). Left: [place] marker in the upper outer left breast [...] 07/05/25 1144 DD/ 0832 TD/TT: 07/05/25 0851 Manufacturing Assistant: Nenita James MD IMG BI PROCEDURES Final Result * XR CERVICAL SPINE 3V (06/27/2025 12:05 PM EDT) Anatomical Region Laterality Modality Abdomen Radiographic Radha ging 06/27/2025 12:0 5 PM EDT Narrative 06/27/2025 1:20 PM EDT [address] [address] XRay Report Signed Patient: Ira Newberry MR#: [id number] 57 : 1970 Acct:[id number] Age/Sex: 55 / F ADM Date: 06/27/25 [facility]: Nenita James MD Ordering Physician: Nenita James MD Date of Service: 06/27/25 Procedure(s): XR cervical spine 3V Accession Number(s): [id number] cc: Jazlyn Addison DO; Nenita James MD [...] signed by Loi Reyes MD in OV> 08/26/25 1317 DD/ 04 TD/TT: 06/27/251204 Manufacturing Assistant: Procedure Note Glenotjerriter, Image - 06/27/2025 [facility] [address] [place] [address] XRay Report Signed Patient: Ira NewberryMR#: [id number] 57 : 1970Acct:[id number] Age/Sex: 55 / FADM Date: 06/27/25 Loc: HO.HHCX Attending Dr: Nenita James MD Ordering Physician: Nenita James MD Date of Service: 06/27/25 Procedure(s): XR cervical spine 3V Accession Number(s): [id number] cc: Jazlyn Addison DO; Nenita James MD [...] Reyes MD in OV> 06/27/25 1317 DD/ 04 TD/TT: 06/27/251204 Manufacturing Assistant: us Nenita James MD IMG XR PROCEDURES Final Result * XR Chest 2 Views (06/27/2025 12:02 PM EDT) Anatomical Region Laterality Modality Chest Radiographic Radha ging 06/27/2025 12:0 2 PM EDT Narrative 06/27/2025 1:22 PM EDT [address] [address] XRay Report Signed Patient: Ira Newberry MR#: [id number] 57 : 1970 Acct:[id number] Age/Sex: 55 / F ADM Date: 06/27/25 Loc: HO.CX Attending Dr: Nenita James MD Ordering Physician: Nenita James MD Date of Service: 06/27/25 Procedure(s): XR chest 2V Accession Number(s): [id number] cc: Jazlyn Addison DO; Nenita James MD [...] Jimmy Hidalgo MD 06/27/2025 01:19 PM EDT Dictated By: Jimmy Hidalgo MD Signed By: <Electronically signed by Jimmy Hidalgo MD in OV> 06/27/25 1319 DD/ 1202 TD/TT: 06/27/25 1205 Manufacturing Assistant: Procedure Note Donotuseinterpreter, Image - 06/27/2025 [facility] [address] [place] [address] XRay Report Signed Patient: Ira NewberryMR#: [id number] 57 : 1970Acct:[id number] Age/Sex: 55 / FADM Date: 06/27/25 Loc: [facility] Attending Dr: Nenita James MD Ordering Physician: Nenita James MD Date of Service: 06/27/25 Procedure(s): XR chest 2V Accession Number(s): [id number] cc: Jazlyn Addison DO; Nenita James MD [...] in OV> 06/27/25 1319 DD/ 1202 TD/TT: 06/27/25 1205 Manufacturing Assistant: Result [facility] Nenita James MD IMG XR PROCEDURES Final Result * POCT COVID-19 Ag [place] ID NOW (05/22/2025 10:16 AM EDT) Pathologist [facility] Coronavirus Antigen PCR Negative Negative, Indeterminate, None Detected, Invalid, Specimen unsatisfactory for evaluation, Weakly Positive, 2+ Swab 05/22/2025 10:1 6 AM EDT Result [facility] Sharee Diana MD POINT OF CARE TEST ENTER /EDIT ORDERABLES Final Result * POCT rapid strep A manually resulted (05/22/2025 10:16 AM EDT) Pathologist [facility] Rapid Strep A Screen Negative Negative, None Detected Swab 05/22/2025 10:1 6 AM EDT Sharee Diana MD POINT OF CARE TEST ENTER /EDIT ORDERABLES Final Result * Hepatitis C Antibody with Reflex to HCV, RNA, Quantitative, Real-Time PCR (04/03/2025 11:47 AM EDT) [facility] Hepatitis C Antibody Nonreactive Nonreactive [facility] Comment:Antibodies to HCV no t detected; does not exclude early acuteHCV infection. Blood Venous blood specimen / Unknown 04/03/2025 11:47 AM EDT 04/03/2025 1:01 PM EDT Jazlyn Rudibill LAB BLOOD ORDERABLES Final R esult Performing Organization Address City/[facility]/ZIP Co de Phone Number [facility] [address] [place] [phone] * HIV-1/2 Antigen and Antibodies, Fourth Generation, with Reflexes (04/03/2025 11:47 AM EDT) [facility] HIV AB/AG Nonreactive Nonreactive [facility] Comment:HIV-1 p24 Ag and/or HIV-1/HIV-2 Ab not detected.A test result that is nonreactive does not exclude thepossibility of exposure to or infection with HIV-1 and/orHIV-2. Nonreactive results in this assay for individualswith prior exposure to HIV-1 and/or HIV-2 may be due toantigen and antibody levels that are below the limit ofdetection of this assay.The [employer] HIV Ag/Ab Combo assay result andsupplemental assay results should be interpreted inconjunction with the patient's clinical presentation,history and other laboratory results. If the results areinconsistent with clinical evidence, additional testing issuggested to confirm the result. Blood Venous blood specimen / Unknown 04/03/2025 11:47 AM EDT 04/03/2025 1:01 PM EDT Jazlyn Jhaverielio LAB BLOOD ORDERABLES Final R esult Performing Organization Address City/[facility]/ZIP Co de Phone Number [facility] [address] [place] [phone] [phone] * Lipid Panel, Standard (04/03/2025 11:47 AM EDT) [facility] Triglycerides 124 <150 mg/dL [facility] Comment:Desirable Triglyceri de: less than 150 mg/dLBorderline High Triglyceride 150-199 mg/dLHigh Triglyceride: 200-499 mg/dLVery High Triglyceride: greater than or equal to 5OO mg/dL Cholesterol 153 <200 mg/dL [facility] Comment:Desirable Cholestero l: less than 200 mg/dLBorderline High Cholesterol: 200-239 mg/dLHigh Cholesterol: greater than 239 mg/dL LDL Cholesterol Calculated 87 <100 mg/dL [facility] Comment:Desirable LDL: less than 100 mg/dLNear Optimal/Above Optimal LDL: 110- 129 mg/dLBorderline High LDL: 130-159 mg/dLHigh LDL: 160-189 mg/dLVery High LDL: greater than or equal to 190 mg/dL HDL Cholesterol 42 >40 mg/dL [facility] Comment:Desirable HDL: great er than 40 mg/dL Note: This HDL assay may give artificially low results in patients with liver disease. Blood Venous blood specimen / Unknown 04/03/2025 11:47 AM EDT 04/03/2025 1:01 PM EDT us Jazlyn Addison DO LAB BLOOD ORDERABLES Final R esult [facility] [address] [place] [phone] * Cologuard?? colon cancer screening (08/26/2023 12:20 PM EDT) Cologuard Result Negative Negative 09/05/20 6:51 PM EDT [facility] (CLIA #:[id number]) Comment: NEGATIVE TEST RESULT. A negative Cologuard [...] (Archie Topete al, N Engl J Med 2014;370(14):0429-8151) The normal value (reference range) for this assay is negative. COLOGUARD RE-SCREENING RECOMMENDATION: Periodic colorectal cancer screening is an important part of preventive healthcare for asymptomatic individuals at average risk for colorectal cancer. Following a negative Cologuard result, the [place] [employer] and U.S. Multi-Society Task Force screening guidelines recommend a Cologuard re-screening interval of 3 years. References: [place] [employer] Guideline for Colorectal Cancer Screening: https://www.cancer.org/cancer/womkl-uhwjxp-rdimll/tergnebcm-diegthkkc-hkbitir/ac s-rec ommendations.html.; Jackson DK, Vianey CHO, Khang DockeryK, Colorectal Cancer Screening: Recommendations for Physicians and Patients from the U.S. Multi-Society Task Force on Colorectal Cancer Screening , Am J Gastroenterology 2017; 112:0820-9043. TEST DESCRIPTION: Composite algorithmic analysis of stool [...] screened with both Cologuard and colonoscopy. (Archie Vieira, N Engl J Med 2014;370(14):3225-0489.) Cologuard may produce a false negative or false positive result (no colorectal cancer or precancerous polyp present at colonoscopy follow up). A negative Cologuard test result does not guarantee the absence of CRC or advanced adenoma (pre-cancer). The current Cologuard screening interval is every 3 years. ([place] [employer] and U.S. Multi-Society Task Force). Cologuard performance data in a 10,000 patient pivotal study using colonoscopy as the reference method can be accessed at the following location: www.[employer]/results. Additional description of the Cologuard test process, warnings and precautions can be found at www.cologuard.com. Stool specimen (specimen) 08/26/2023 12:20 PM EDT 08/29/2023 6:48 AM EDT Jazlyn Addison DO LAB MOLECULAR DIAGNOSTICS OR DERABLES Final Result [facility] (CLIA #:[id number]) [address] [place] [address], * Pap Smear (07/22/2021) Pap Negative for intraephithelial lesion or malignancy Negative for intraephithelial lesion or malignancy, Other HPV Undetected Historical Provider HEALTH MAINTENANCE Final Result from Last 3 Months or Most Recently Relevant to Health Maintenance Insurance [employer] Care Teams Bessemer Converter Operator Relationship Specialty Start Date End Date Jazlyn Addison DO [address] [place] [phone] PCP - General Family Medicine 03/01/12
--- OUTSIDE RECORDS SUMMARY | 2025-07-21 12:01 | XMS_ITS | Encounter Summary ---
Author Organization [employer] Address [address] [facility] 7t [place] [address] Care Team Providers Care Telephone Lineman Name Role Phone Jazlyn Addison DO Primary Care Provider [phone] Reason for Visit * Reason Onset Date Comments Results 06/27/2025 Encounter Details Date Type Department Care Team ([facility] st Contact Info) Description 06/27/2025 Results Follow-Up [facility] [address] [place], [place] [phone] Nenita James MD [address] [place], [place] [phone] XR CERVICAL SPINE 3V Social History Tobacco [...] EDT TC placed to the pt with BLS american sign language interpreter #[id number] to inform of the result message below [...] documented as of this encounter Care Teams Telephone Lineman Relationship Specialty Start Date End Date Jazlyn Addison DO [address] [place] [address] PCP - General Family Medicine 03/01/12 documented as of this encounter
--- OUTSIDE RECORDS SUMMARY | 2025-07-21 12:01 | XMS_ITS | Encounter Summary ---
Author Organization [employer] Address [address] [facility] 7t [place] [address] Care Team Providers Care Embroidery Operator Name Role Phone Jazlyn Addison DO Primary Care Provider [phone] Encounter Details Date Type Department Care Team (Latest Contact Info) Description 07/21/2025 Travel Social History Tobacco Use Types Packs/Day [...] AM EDT documented as of this encounter Functional Status * Over the [...] 10:29 AM Jil Kee [place] * Feeling down, depressed, or hopeless Answer Date of Assessment Author Several days 07/21/2025 10:29 AM Jil Kee [place] * Trouble falling or staying asleep, or sleeping too much Answer Date of Assessment Author Not at all 07/21/2025 10:29 AM Jil Kee [place] * Feeling tired or having little energy Answer Date of Assessment Author Not at all 07/21/2025 10:29 AM Jil Kee [place] * Poor appetite or overeating Answer Date of Assessment Author More than half the days 07/21/2025 10:29 AM Jil Kee [place] * Feeling bad about yourself - [...] 10:29 AM EDT Jil Parks MA * Thoughts that you would be better off or hurting yourself in some way Answer Date of Assessment Author Not at all 07/21/2025 10:29 AM JIMT Jil Parks [place] * Patient Health Questionnaire-9 Score Answer Date of Assessment Author 3 07/21/2025 10:29 AM JIMT Jil Parks [place] * How difficult have these problems made it for you to do your work, take care of things at home, or get along with other people? Answer Date of Assessment Author Somewhat difficult 07/21/2025 10:29 AM EDT Jil Villeda MA * Over the last 2 weeks, how often have you been bothered by any of the following problems? Question Answer Date of Assessment Author Feeling nervous, anxious, or on edge 1 07/21/2025 10:29 AM EDT Jil Parks MA Not being able to stop or co ntrol worrying 1 07/21/2025 10:29 AM EDT Jil Parks MA Worrying too much about diff erent things 1 07/21/2025 10:29 AM EDT Jil Parks MA Trouble relaxing 1 07/21/2025 10:29 AM EDT Jil Parsk MA Being so restless that it is hard to sit still 0 07/21/2025 10:29 AM JIMT Jil Parks MA Becoming easily annoyed or irritable 0 07/21/2025 10:29 AM EDT Jil Parks MA Feeling afraid as if somethi ng awful might happen 0 07/21/2025 10:29 AM EDT Jil Parks MA GOPAL-7 Total Score 4 07/21/2025 10:29 AM JIMT Jil Parks MA documented as of this encounter Plan of Treatment Not on file documented as of this encounter Visit Diagnoses Not on filedocumented in this encounter Additional Health Concerns Assessment Noted Time PHQ-9 Depression Total Score: 3 07/21/20 25 10:29 AM EDT documented as of this encounter Care Teams Embroidery Operator Relationship Specialty Start Date End Date Jazlyn Addison DO [address] [place] [address] PCP - General Family Medicine 03/01/12 documented as of this encounter
--- OUTSIDE RECORDS SUMMARY | 2025-07-21 12:01 | XMS_ITS | Encounter Summary ---
Author Organization [employer] Address [address] [facility] 7t [place] [address] Care Team Providers Care Derrick Worker Well Service Name Role Phone Jazlyn Addison DO Primary Care Provider [phone] Reason for Visit * Reason Onset Date Comments Results 07/04/2025 Encounter Details Date Type Department Care Team ([facility] st Contact Info) Description 07/04/2025 Telephone [facility] [address] [place], [place] [phone] Jazlyn Addison DO [address] [place], [place] [phone] Results Social History Tobacco Use Types Packs/Day [...] back regarding xray results Contact pt at [phone] (moldovan) documented in this encounter Plan of Treatment Not on file documented as of this encounter Visit Diagnoses Not on filedocumented in this encounter Additional Health Concerns Assessment Noted Time PHQ-9 Depression Total Score: 2 04/18/20 24 10:31 AM EDT documented as of this encounter Care Teams Derrick Worker Well Service Relationship Specialty Start Date End Date Jazlyn Addison DO [address] [place] [phone] PCP - General Family Medicine 03/01/12 documented as of this encounter
--- OUTSIDE RECORDS SUMMARY | 2025-07-21 12:01 | XMS_ITS | Encounter Summary ---
Author Organization [employer] Address [address] [facility] 7t [place] [address] Care Team Providers Care Electronic Technologist Name Role Phone Jazlyn Addison DO Primary Care Provider [phone] Encounter Details Date Type Department Care Team (Latest Contact Info) Description 07/05/2025 Results Follow-Up [facility] [address] [place], [place] [phone] Nenita James MD [address] [place], [place] [phone] BI Mammogram Diagnostic Tomosynthesis Bilateral Social History Tobacco Use Types Packs/Day Years [...] documented as of this encounter Care Teams Electronic Technologist Relationship Specialty Start Date End Date Jazlyn Addison DO [address] [place] [phone] PCP - General Family Medicine 03/01/12 documented as of this encounter
--- OUTSIDE RECORDS SUMMARY | 2025-07-21 12:01 | XMS_ITS | Encounter Summary ---
Author Organization [employer] Address [address] [facility] 7t [place] [address] Care Team Providers Care Big Data Analytics Lead Name Role Phone Jazlyn Addison DO Primary Care Provider [phone] Reason for Visit * Reason Comments Med Refill Encounter Details Date Type Department Care Team ([facility] st Contact Info) Description 12/26/2024 Refill [facility] [address] [place], [place] [phone] Sharee Diana MD [address] [place], [place] [phone] Social History Tobacco Use Types Packs/Day Years [...] documented as of this encounter Care Teams Big Data Analytics Lead Relationship Specialty Start Date End Date Jazlyn Addison DO [address] [place] [address] PCP - General Family Medicine 03/01/12 documented as of this encounter
--- OUTSIDE RECORDS SUMMARY | 2025-07-21 12:01 | XMS_ITS | Clinical Summary ---
Author Organization [facility] ity Address [address] [place] [address] Care Team Providers Care Case Specialist Name Role Phone Unavailable Primary Care Provider [...] 01/16/2018 Zoster Vaccines (1 of 2) 01/16/2018 Depression Screening 11/02/2024 COVID-19 Vaccine (1 - 2023-2 5 season) 2025 Influenza Vaccine (#1) 2025 RSV Immunization Adult Patie nts (1 - 1-dose 75+ series) 01/16/2043 HIB Vaccines Aged Out No longer eligi [...]
--- OUTSIDE RECORDS SUMMARY | 2025-07-21 12:01 | XMS_ITS | Encounter Summary ---
Author Organization [employer] Address [address] [place] [address] Care Team Providers Care Pharmacy Clinical Specialist Name Role Phone Jazlyn Addison DO Primary Care Provider [phone] Encounter Details Date Type Department Care Team ([facility] st Contact Info) Description 11/28/2024 Telephone [facility] [address], [place] [phone] Jazlyn Addison DO [address] [place], [place] [phone] Social History Tobacco Use Types Packs/Day Years [...] documented as of this encounter Care Teams Pharmacy Clinical Specialist Relationship Specialty Start Date End Date Jazlyn Addison DO [address] [place] [id number] PCP - General Family Medicine 03/01/12 documented as of this encounter
== END 2025-07-21 11:24 | disposition home or self-care (01) ==
LOC: HO.HHCL 11:23
PROVIDERS: PCP Family Medicine; Visit Provider Family Medicine
DX: Z13.89 Encounter for screening for other disorder (principal)

== ENCOUNTER 2025-07-24 12:56 | Outpatient (REF) | payer MEDICAID, SELFPAY ==
[2025-07-24 13:58] LABS: Leukocytes Stool Qualitative NEGATIVE (NEGATIVE)
[2025-07-24 14:34] LABS: E. coli EAEC Not Detected (Not Detect.); E. coli EPEC Not Detected (Not Detect.); E. coli ETEC Not Detected (Not Detect.); E. coli STEC Not Detected (Not Detect.); Shigella sp./EIEC Not Detected (Not Detect.)
== END 2025-07-24 12:57 | disposition home or self-care (01) ==
LOC: HO.LNP 12:56
PROVIDERS: Visit Provider Family Medicine
DX: K52.9 Noninfective gastroenteritis and colitis, unspecified (principal)
CPT/HCPCS: 87329; 87338; 87507; 89055

== ENCOUNTER → 2025-10-11 07:56 | Outpatient (BNV) | payer MEDICAID, SELFPAY | PROVIDERS: PCP Family Medicine; Visit Provider Radiology Diagnostic Radiology | DX: G31.9 Degenerative disease of nervous system, unspecified (principal) | CPT/HCPCS: 70551 ==

== ENCOUNTER 2025-10-11 07:58 | Outpatient (REF) | payer MEDICAID, SELFPAY ==
--- NOTE | ~2025-10-11 | MR_ITS ---
EXAMINATION: MR BRAIN WITHOUT CONTRAST CLINICAL INFORMATION: New onset hand tremors. COMPARISON: Correlated to CT dated October 05, 2024. TECHNIQUE: MRI of the brain was obtained using routine sequences without contrast. FINDINGS: No restricted diffusion. No acute intracranial hemorrhage, mass effect, midline shift, hydrocephalus or herniation. Zambrano-white matter differentiation is normal. There are a few scattered nonspecific subcortical white matter hyperintense T2 FLAIR signal foci, the most conspicuous in the left temporal region. Flow-void signal within the main cerebral vessels is normal. Posterior cranial fossa contents demonstrated no signal abnormality or mass effect. Sellar/suprasellar region demonstrated no gross masses. Craniocervical junction is intact with normal position of the cerebellar tonsils. Mild prominence of the extra-axial CSF spaces cerebral sulci in the bifrontal biparietal lobes. 15 mm retention cyst, right maxillary sinus. MR/MR head/brain wo con IMPRESSION: No acute brain abnormality. Bifrontal biparietal lobes atrophy, mild. Nonspecific white matter T2 FLAIR signal foci. This could be seen patients with migraines. Electronically signed by: Stefan Martinez MD 10/11/2025 09:20 AM [facility]
== END 2025-10-11 07:59 | disposition home or self-care (01) ==
LOC: HO.MRI 07:58
PROVIDERS: PCP Family Medicine; Visit Provider Family Medicine
DX: R25.1 Tremor, unspecified (principal)
CPT/HCPCS: 70551